=== PATIENT | male | born 1940 | race Caucasian/White ===

== ENCOUNTER 2020-06-13 14:19 | Emergency (ER) | payer OTHER, SELFPAY ==
[2020-06-13 14:26] VITALS: BP 166/62; PULSE 57; RESP 16; TEMP 36.6; O2SAT 99; BMI 27.8
--- NOTE | 2020-06-13 16:10 | ED.WOUNDLAC ---
HPI - Wound/Laceration General Chief Complaint: Wound/Laceration Stated Complaint: finger lac from log splitter Time Seen by Provider: 06/13/20 16:10 History of Present Illness HPI narrative: Patient cut left middle finger on log splitter, and cut off the tip of the finger There is no other injury there is no dizziness no fainting no chest pain, no numbness or weakness Related Data Previous Rx's Medication Instructions Recorded cephalexin [Keflex] 500 mg PO QID 7 Days #28 cap 06/13/20 Allergies Allergy/AdvReac Type Severity Reaction Status Date / Time No Known Allergies Allergy Verified 06/13/20 16:12 Review of Systems Review of Systems: No numbness no weakness no dizziness, no other injury, no fainting, no chest pain no palpitations no shortness of breath [facility] Past Medical History Attestation statement: The following information was validated with the patient. [facility] Narrative: Medical is history is hypertension, no alcohol no drugs Source: nursing notes reviewed Medical History (Updated 06/13/20 @ 18:55 by BERNADETTE Boyce) Hypertension Social History Social History Smoked in Last 30 Days: No Use of substances other than those prescribed or required for medical reasons: No Advance Directives: No Advance Directives Information Provided: No Physical Exam Vital Signs: Vital Signs: Last Vital Signs Temp 98 F 06/13/20 14:26 Pulse 57 06/13/20 18:04 Resp 20 06/13/20 18:04 BP 195/68 H 06/13/20 18:04 Pulse Ox 99 06/13/20 14:26 Body Mass Index 27.8 Patient is A&O x3, no acute distress Normocephalic atraumatic Neck is supple Respiratory no respiratory distress The left middle finger has the distal mid nail finger tip is gone with bone exposed with some bleeding, the fingers otherwise intact and tendon function is intact at both IP, sensation and motor are intact as is vascular Neuro no focal deficit Course Course Course Narrative: The finger was numbed with a digital block, the bandage was removed and there was still some bleeding of the left middle finger with a distal phalanx which is basically the distal part right through the middle of the nail not affecting D IP or IP joints, this was irrigated copiously and then a Surgicel dressing was applied and the patient was observed for half an hour and bleeding was controlled I contacted our local orthopedics and they could not follow this case which probably needs rongeur of the bone and closure by hand specialist I gave the patient the number of the hand center and if he is unable to got follow-up through them or through his primary care doctor he can return here during business hours and we can make some calls and find a place Review of the left middle finger x-ray shows distal phalanx tuft avulsion Discharge Plan Discharge Clinical Impression: Amputation of tip of finger Qualifiers: Encounter type: initial encounter Qualified Code(s): S68.119A - Complete traumatic metacarpophalangeal amputation of unspecified finger, initial encounter Patient Disposition: Home, Self-Care Additional Instructions: We could not refer you to a hand doctor as we do not have 1 here so I will give you some numbers for you to call tomorrow morning It is very important to follow with a hand doctor in 1-2 days as the bone is exposed and will need a special procedure to cover up the bone and protected from infection You can try the Hand Center in [place] phone number [phone], or get a referral from your doctor for a hand specialist Return any time for spreading redness, worse pain and swelling, any sign of infection or any concerns Take antibiotic as prescribed, you got a tetanus shot here Prescriptions: New cephalexin [Keflex] 500 mg capsule 500 mg PO QID 7 Days Qty: 28 RF: 0 Interventions: ED Discharge Assessment Last Done: 06/13/20 19:01 Discharge Date/Time: 06/13/20 19:01
--- NOTE | 2020-06-13 17:27 | XR_ITS ---
EXAMINATION: Left middle finger CLINICAL INFORMATION: Injury to digits COMPARISON: None TECHNIQUE: 3 views of the left middle finger. FINDINGS: There is partial amputation of the tip of the middle digit involving soft tissue and small portion of the distal tuft of the distal phalanges. XR/XR finger LT min 2V IMPRESSION: Amputation of a small portion of the distal tuft of distal phalanx of middle digit along with soft tissues at the distal middle finger.
[2020-06-13 18:04] VITALS: BP 195/68; PULSE 57; RESP 20
[2020-06-13] MEDS: Acetaminophen 325 MG TABLET 650 MG PO (18:17)
== END 2020-06-13 19:01 | disposition home or self-care (01) ==
PROVIDERS: Emergency Provider Emergency Medicine; PCP Internal Medicine
DX: S68.119A Complete traumatic metacarpophalangeal amputation of unspecified finger, initial encounter (principal); S60.413A Abrasion of left middle finger, initial encounter; M79.642 Pain in left hand; Y28.8XXA Contact with other sharp object, undetermined intent, initial encounter; Y93.9 Activity, unspecified; Y92.007 Garden or yard of unspecified non-institutional (private) residence as the place of occurrence of the external cause; Y99.9 Unspecified external cause status; Z23 Encounter for immunization
CPT/HCPCS: 73140; 90471; 90715; 99284

== ENCOUNTER 2020-06-16 09:16 | Emergency (ER) | payer OTHER, SELFPAY ==
[2020-06-16 10:13] VITALS: BP 186/72; PULSE 55; RESP 16; TEMP 36.7; O2SAT 98; BMI 28.1
[2020-06-16] MEDS: Lidocaine HCl 1 % MPF 5 ML VIAL SUBCUT ×2 (11:40)
--- NOTE | 2020-06-16 11:43 | ED.WOUNDLAC ---
HPI - Wound/Laceration General Chief Complaint: Wound/Laceration Stated Complaint: FINGER LACERATION Time Seen by Provider: 06/16/20 10:26 History of Present Illness HPI narrative: Patient is here for recheck of left middle finger tip amputation, he was seen here on Thursday 2 days ago after chopping off the tip of the finger with a log splitter He was not able to get a hand doctor for follow-up despite going to his primary care for referral and calling several numbers of local hand surgeons He is also complaining that when the dressing was changed at the office yesterday it started lightly bleeding Related Data Previous Rx's Medication Instructions Recorded cephalexin [Keflex] 500 mg PO QID 7 Days #28 cap 06/13/20 Allergies Allergy/AdvReac Type Severity Reaction Status Date / Time No Known Allergies Allergy Verified 06/13/20 16:12 Review of Systems Review of Systems: There is no fever no chills no dizziness no weakness there is no numbness or paresthesia, there is no rash, no joint pain [facility] Past Medical History Attestation statement: The following information was validated with the patient. [facility] Narrative: Medical history is hypertension and the patient does take medications and has been compliant but is blood pressure was noted to be elevated so he is advised to follow with primary physician for re-evaluation of that Medical History (Updated 06/16/20 @ 11:28 by BERNADETTE Boyce) HTN (hypertension) Hypertension Social History Social History Advance Directives: No Advance Directives Information Provided: Yes Physical Exam Vital Signs: Vital Signs: Last Vital Signs Temp 98.1 F 06/16/20 10:13 Pulse 55 06/16/20 10:13 Resp 16 06/16/20 10:13 BP 186/72 H 06/16/20 10:13 Pulse Ox 98 06/16/20 10:13 Body Mass Index 28.1 Patient is A&O x3 comfortable relaxed and cooperative Neck is supple Respiratory no distress The left middle finger is unwrapped the bandage had some blood staining it but it was not heavily bleeding, the skin is not red or warm or swollen there is no pus or discharge from the wound there is no lymphangitis no evidence of skin infection Course Course Course Narrative: Patient with left middle finger tip laceration/amputation with bone exposed had dressing removed, new dressing and Surgicel were applied with control of bleeding I called [facility] and a Dr. Connell called me back and is willing to follow the case, he is the hand surgeon at [facility] and follow-up is confirmed for the patient who has no sign of infection or any emergent condition at this moment Discharge Plan Discharge Clinical Impression: Amputation of finger tip Qualifiers: Encounter type: sequela Qualified Code(s): S68.119S - Complete traumatic metacarpophalangeal amputation of unspecified finger, sequela Patient Disposition: Home, Self-Care Additional Instructions: I spoke to Hand surgeon Dr. Connell and he advised remove dressing and wash finger gently once a day He said they can see you in his office on Thursday or Thursday the office phone number is [phone] He said they should call you Thursday morning, if they do not call you you can call them and mention that this was discussed with Dr. Connell Your being seen for a finger tip amputation with exposed bone Bring the disc of the x-ray with you for your appointment Your blood pressure was elevated in the ER so follow with primary doctor for further evaluation Prescriptions: No Action cephalexin [Keflex] 500 mg capsule 500 mg PO QID 7 Days Qty: 28 RF: 0
--- NOTE | 2020-06-16 12:18 | PC.NURSE ---
DIGITAL BLOCK P ERFORMED, PT REPORTS NO PAIN DURING DSD CHANGE AND UPON DC
== END 2020-06-16 12:05 | disposition home or self-care (01) ==
PROVIDERS: Emergency Provider Emergency Medicine; PCP Internal Medicine
DX: S68.119A Complete traumatic metacarpophalangeal amputation of unspecified finger, initial encounter (principal); M79.644 Pain in right finger(s); X58.XXXA Exposure to other specified factors, initial encounter; Y93.9 Activity, unspecified; Y92.9 Unspecified place or not applicable; Y99.9 Unspecified external cause status; Z79.899 Other long term (current) drug therapy
CPT/HCPCS: 99284

== ENCOUNTER 2023-07-09 09:09 | Outpatient (AMB) | payer OTHER, SELFPAY ==
--- NOTE | 2023-07-09 11:56 | AM.OFFWIN_ITS ---
Intake Vital Signs 07/09/23 11:58 Height 5 ft 11 in Weight 207 lb BMI 28.9 BP 140/80 H Blood Pressure Location Lt brachial Position Sitting Pulse 60 Pulse Source Pulse Oximeter Temp 97.7 F Temp Source Temporal Artery Scan Pulse Oximetry (%) 99 Oxygen Delivery Method Room Air Intake Visit Reasons: EP, right hand swelling Intake Note: pt is here today for rt hand swelling started Thursday Patient Tobacco Use Status: Never used Tobacco Allergies No Known Allergies Allergy (Verified 07/09/23 12:03) Do you need a note to return to daycare/school/sports/work: No HPI EP, right hand swelling HPI Details This is an 82-year-old male patient who presents today with a 2 day history of swelling of his right hand. Over the last couple of weeks, he noticed a small round/reddened bump on the dorsal aspect of his right hand. This has grown slightly, and yesterday he noticed his hand surrounding this bump was swollen. He denies any tenderness. He denies any other symptoms today. Denies any fever/chills. [facility] Medical History HTN (hypertension) Hypertension Social History Patient Tobacco Use Status: Never used Tobacco Review of Systems Const All systems reviewed & are unremarkable except as noted in HPI and below Physical Exam Vital Signs: Last Vital Signs Temp 97.7 F 07/09/23 11:58 Pulse 60 07/09/23 11:58 BP 140/80 H 07/09/23 11:58 Pulse Ox 99 07/09/23 11:58 Oxygen Delivery Method Room Air 07/09/23 11:58 BMI result Body Mass Index 28.9 Const General: cooperative, healthy appearing, comfortable and no acute distress Neck Neck: Yes no lymphadenopathy Resp Effort & Inspection: normal respiratory effort Skin General skin exam: no rashes or lesions noted Extrem Other: ? small 1/2 cm round cyst dorsal aspect of right hand between thumb and first digit. Surrounding soft tissue is erythematous and slightly swollen. No tenderness to palpation. No excessive warmth. Right upper extremity: Extremity exam: right hand Details: abnormal to inspection, normal capillary refill, neuromotor exam normal and neurosensory exam normal Office Procedures I&D Drain [id number] Drain Abscess on Finger, simple All charges added?: Procedure code (CPT) selection complete Assessment & Plan Assessment & Plan (1) Cellulitis of right hand: Code(s): L03.113 - Cellulitis of right upper limb Plan: Patient has a small abscess vs. cyst on dorsal aspect right hand. I attempted simple needle puncture I&D of this however no drainage was able to be removed from this. I suspect he has a developing cellulitis and will start him on a course of cephalexin for this. We discussed that if this does not improve, or if he develops any worsening swelling, pain, or warmth of his hand, he should return to the clinic for further evaluation. He verbalizes understanding and agrees to plan. Medications: New cephalexin 500 mg PO TID 5 days 15 tabs 0RF L03.113 - Cellulitis of right upper limb Coding Level of Care Code Est Pt Level 3 (01100) Diagnoses Cellulitis of right hand L03.113 CPT Codes I&D Drain - DRAIN 8: [id number] Drain Abscess on Finger, simple ([id number])
[2023-07-09 11:58] VITALS: BP 140/80; PULSE 60; TEMP 36.5; O2SAT 99; BMI 28.9
== END 2023-07-09 12:48 | disposition home or self-care (01) ==
PROVIDERS: PCP Internal Medicine; Visit Provider Nurse Practitioner Family
DX: L03.113 Cellulitis of right upper limb (principal)
CPT/HCPCS: 10160; 26010; 99213

== ENCOUNTER 2025-04-23 12:11 | Inpatient (IN) | payer OTHER, SELFPAY ==
--- OUTSIDE RECORDS SUMMARY | 2024-02-11 06:30 | XMS_ITS ---
Author Organization [facility] Address [address] [facility] [address] Care Team Providers Care Farm Equipment Operator Name Role Phone Shree Aguiar Primary Care Provider Unav Giana Tao Unavailable [phone] Corey Brown Unavailable [phone] Rs Medications Medication [...] other tobacco user? No Vital Signs Height 6kw96bw in 02/11/2024 Weight 205 lbs 02/11/2024 BMI 28.59 kg/m2 02/11/2024 Encounters Encounter Location Date Provider Diagnosis [facility] [address] [place] [address] 02/11/2024 Corey Brown Plan Of Treatment No Information Progress Notes * Damien ADHIKARI SDOB:1940 (84 yo M)Acc No.[id number]:02/11/2024 Progress Notes Patient: Damien MERAZ Provider: Estefania Brown DPM :1940 A ge:83 Y S ex:Male Date:02/11/2024 Address:[address] [place] [address], [facility], [facility] Pcp:BERNADETTE Peacock Subjective: * Chief Complaints: * [...] enies. C ardiovascular: Pacemaker d enies. M PAN DEVULCANIZER HELPER d enies. W PW d enies. C [...] a day Objective: * Vitals: H t: 1wj32gy, Wt: 205, BMI: 28.59, Shoe size: 10.5, Ht-cm: 180.34 cm, Wt-k.99 kg. Assessment: Plan: * Treatment: * Images: * The named appointment provid er may or may not be the originator of this progress note, and it is not deemed complete until electronically signed by the appointment provider. Sign off status: Pending * Provider: Estefania Brown DPM Date: 02/11/2024 Generated for Anika jefferson/Nirmal/Becky on: 04/23/2025 01:50 PM EDT
--- OUTSIDE RECORDS SUMMARY | 2025-02-06 07:15 | XMS_ITS ---
Author Organization [facility] Address [address] [facility] [place] [address] Care Team Providers Care Manager Cardiac Cath Name Role Phone Shree Aguiar Primary Care Provider Unav ailable Giana Christina Unavailable [phone] Encounters Encounter Location Date Provider Diagnosis [facility] [address] [facility] [place] [address] 02/06/2025 Giana Christina Plan Of Treatment No Information Progress Notes * Damien ADHIKARI SDOB:1940 (84 yo M)Acc No.[id number]:02/06/2025 Progress Note Patient: Damien MERAZ Provider: Juanita Christina DPM :1940 A ge:84 Y S ex:Male Date:02/06/2025 Address:[address] [place] [address], [facility] [place] [facility] Pcp:BERNADETTE Peacock Subjective: * Chief Complaints: * [...] 0 02/06/2025 Generated for Printi ng/Faxing/eTransmitting on: 04/23/2025 01:50 PM EDT
--- OUTSIDE RECORDS SUMMARY | 2025-04-19 09:30 | XMS_ITS | Encounter Summary ---
Author Organization [facility] [place] [address] Care Team Providers Care Step Down Specialist Name Role Phone Shree Urbina Primary Care Provider [phone] Reason for Visit * Consultation (Routine) - Authorized Specialty Diagnoses / Procedures Referred By Jonnathan condon Referred To Contact Physical Therapy Diagnoses Hip pain, unspecified laterality Bilateral shoulder pain, unspecified chronicity Tendinitis of left rotator cuff Rotator cuff tendonitis, right Primary osteoarthritis of right hip Nathan Arzola PA [address] [place] [address] Phone: tel: fax: Referral ID Status Reason Start Date Expiration Date Visits Requested Visits Authorized [id number] Authorized Consult and Treat 03/22/2025 03/22/2026 9 9 Encounter Details Date Type Department Care Team (Late st Contact Info) Description 04/19/2025 9:30 AM EDT Treatment Outpatient Rehabilitation [address] [phone] Minoo Dukes PTA Hip pain, unspecified laterality (Primary Dx) Social History Tobacco Use Types Packs/Day Years Used Date Smoking Tobacco: Former Cigarettes 1 8.6 0 12/24/1958 - 07/27/1967 Smokeless Tobacco: Never Alcohol Use Standard Drinks/Week Comments Yes 0 (1 standard drink = 0.6 oz pur e alcohol) Housing Instability Answer Date Recorde d Are you worried that in the next 2 months you may not have stable housing? No 10/12/2024 Food Access & Nutrition Answer Date Rec orded Do you have access to a vari ety of food including fruits and vegetables? Yes 10/12/2024 Health Literacy Answer Date Recorded How often do you need to hav e someone help you when you read instructions, pamphlets, or other written material from your doctor or pharmacy? Never 10/12/2024 Caregiver: How often do you need to have someone help you when you read instructions, pamphlets, or other written material from your doctor or pharmacy? Not on file 10/12/2024 Financial Risk Answer Date Recorded How hard is it for you to pa y for the very basics like food, housing, medical care, and air conditioning / heating? Not very hard 10/12/2024 Transportation Answer Date Recorded Has the lack of transportati on kept you from meetings, work, or from getting things needed for daily living? No Has the lack of transportati on kept you from medical appointments or from getting medications? No 10/12/2024 Social Isolation Answer Date Recorded How often do you feel lonely or isolated from th ose around you? Never 10/12/2024 Food Risk Answer Date Recorded Within the past 12 months we worried whether our food would run out before we got money to buy more. Never true 10/12/2024 Within the past 12 months th e food we bought just didn't last and we didn't have money to get more. Never true 10/12/2024 Dependent Care Answer Date Recorded Do you need help finding or paying for care for your loved ones. For example, child psychology teacher or elderly care for an older adult? No 10/12/2024 Education Answer Date Recorded Do you think completing more education or training, like finishing a GED, going to college, or learning a trade, would be helpful for you? No 10/12/2024 Employment and Income Answer Date Recor ded During the last four weeks, have you been actively looking for work? No 10/12/2024 Living Situation Answer Date Recorded What is your living situation? Unrecognized valu e 10/12/2024 Sex and Gender Information Value Date Recorded Sex Assigned at Not on file Legal Sex Male 12:38 PM EST Gender Identity Not on file Sexual Orientation Not on file documented as of this encounter Progress Notes * Minoo Dukes, PHOTO FINISHER - 04/19/2025 9:30 AM EDT [facility] - Outpatient PHYSICAL THERAPY DAILY TREATMENT NOTE - OP Date: 04/19/2025 Visit Number: 2 Patient Name: Damien Tapia : 1940 Age: 84 y.o. Gender: male Diagnosis: ICD-10-CM ICD-9-CM 1. Hip pain, unspecified laterality M25.559 719.45 Date of Onset/Surgery: 03/22/2025 Referring Provider: Nathan Arzola PA Insurance: Payor: [employer] / Plan: [employer] PLAN / Product Type: *No Product type* / Patient Identified by: Minoo Dukes PTA Language: Belarusian Medications: Current Outpatient Medications on File Prior to Visit Medication Sig Dispense Refill acetaminophen (TYLENOL) 500 mg tablet Take 2 tablets (1,000 mg total) by mouth every 6 (six) hours if needed for mild pain. alfuzosin (UROXATRAL) 10 mg 24 hr tablet Take 1 tablet (10 mg total) by mouth 1 (one) time each day. 90 tablet 1 amLODIPine (NORVASC) 10 mg tablet Take 1 tablet (10 mg total) by mouth 1 (one) time each day. 90 tablet 2 atorvastatin (LIPITOR) 20 mg tablet TAKE 1 TABLET BY MOUTH ONCE A DAY 90 tablet 2 CHOLECALCIFEROL, VITAMIN D3, ORAL Take by mouth. cyanocobalamin (VITAMIN B-12) 100 mcg tablet Take 1 tablet (100 mcg total) by mouth 1 (one) time each day. ibuprofen (ADVIL,MOTRIN) 600 mg tablet Take 1 tablet (600 mg total) by mouth every 6 (six) hours ifneeded for mild pain. 120 tablet 2 losartan (COZAAR) 100 mg tablet Take 1 tablet (100 mg total) by mouth 1 (one) time each day. 90 tablet 2 triamcinolone (KENALOG) 0.1 % ointment Apply topically 2 (two) times a day if needed for irritationor rash. 30 g 3 Current Facility-Administered Medications on File Prior to Visit Medication Dose Route Frequency Provider Last Rate Last Admin triamcinolone acetonide (KENALOG-40) 40 mg/mL injection 40 mg 40 mg intra- articular Once BERNADETTE Peacock Allergies: has No Known Allergies. Precautions: Fall risk: No Patient/Caregiver Goals: SUBJECTIVE Subjective Report: I am more sore at night Chart Reviewed: Yes Pain R hip discomfort OBJECTIVE TREATMENT INTERVENTION: Modalities: None performed Procedures: Nustep x5min Seated HS stretch 30 sec x3 HEP Supine LTR x10 HEP Supine hip flexor stretch off table 30 sec x3 HEP Manual.. PROM to R hip, LAD to R hip ASSESSMENT/Response to Treatment Good Pt given HEP with handout provided Patient Education: Education provided: Yes Education Provided To: Patient utilizing Explanation and Demonstration mode(s) of education Response to Education: Applied Knowledge and Verbal Understanding PLAN POC Development/Review: No Change in the Plan of Care; Participants: Patient Total Treatment Time: 30 Modalities: Therapeutic procedures: Documentation completed by Minoo Dukes PTA documented in this encounter Plan of Treatment Upcoming Encounters Date Type Department Care Team (Late st Contact Info) Description 04/26/2025 9:15 AM EDT Treatment Outpatient [address] [phone] Minoo Dukes PTA 04/28/2025 10:30 AM EDT Treatment Outpatient [address] [phone] Chung Ontiveros, PT [address] [place] [address] 05/01/2025 9:30 AM EDT Treatment Outpatient [address] [phone] Minoo Dukes PTA 05/05/2025 9:30 AM EDT Treatment Outpatient [address] [phone] Chung Ontiveros, PT [address] [place] [address] 05/08/2025 10:00 AM EDT Treatment Outpatient [address] [phone] Minoo Dukes PTA 05/16/2025 10:30 AM EDT Treatment Outpatient Rehabilitation [facility] [address] [place] [address] Chung Ontiveros, PT [address] [place] [address] 05/26/2025 11:00 AM EDT Office Visit Adult Medicine [facility] [address] [place], [place] [phone] Louise Trivedi PA [address] [place], [place] documented as of this encounter Goals Goal Patient Goal Type Associated Problems Recent Progress Patient-Stated? Author not have pain General Yes Chung Ontiveros, PT PT STG 8 visits from [facility] on 04/14/25 General No Chung Ontiveros, PT Note: [x] = goal MET [] = goal NOT MET [] Pt will report a pain decrease to 2/10, [] Pt will be improve hip abd strength to 4+/5, [] Pt will improve hip add strength to 4+/5, [] Pt will not require UE support to transfer LE into and out of bed, [] Pt will wake <1night due to hip pain PT LTG x 15 visits from [facility] 04/14/25 General No Chung Ontiveros, PT Note: [x] = goal MET [] = goal NOT MET [] Pt will have no difficulty with dressing LE [] Pt will wake 1 x/wk at most due to hip Sx documented as of this encounter Visit Diagnoses Diagnosis Hip pain, unspecified laterality- Primary documented in this encounter Additional Health Concerns Assessment Noted Time PHQ-9 Depression Total Score: 0 10/13/19 8:18 AM EDT A fall risk assessment has been complete d for the patient 10/12/2024 8:19 AM EDT documented as of this encounter Care Teams Step Down Specialist Relationship Specialty Start Date End Date Shree Urbina PA [address] [place] [address] PCP - General Internal Medicine 10/11/24 documented as of this encounter
--- OUTSIDE RECORDS SUMMARY | 2025-04-20 11:30 | XMS_ITS | Encounter Summary ---
Author Organization [facility] Address [address] [place] [address] Care Team Providers Care Stapler Hand Name Role Phone Shree Urbina Primary Care Provider [phone] Reason for Visit * Reason Comments Pain * Consultation (Routine) - Authorized Specialty Diagnoses / Procedures Referred By Jonnathan condon Referred To Contact Sports Medicine / Orthopaedic Surgery Diagnoses Primary osteoarthritis of right hip Nathan Arzola PA [address] [place] [address] Phone: tel: fax: Faye Solo MD [address] [address] Phone: tel:[phone] fax:[phone] Referral ID Status Reason Start Date Expiration Date Visits Requested Visits Authorized [id number] Authorized Specialty Services Required 03/23/2025 03/22/2026 12 12 Encounter Details Date Type Department Care Team ([facility] st Contact Info) Description 04/20/2025 11:30 AM EDT Consult Orthopedic Surgery - [place] [address] [phone] Faye Solo MD [address] [address] Primary osteoarthritis of right hip Social History Tobacco Use Types Packs/Day Years [...] care for your loved ones. For example, salesperson children's shoes or elderly care for an older adult? [...] as of this encounter Progress Notes * Faye Solo MD - 04/20/2025 11:30 AM EDT Tylenol 500mg take 2 tabs at 8pm Ibuprofen 600mg take 1 at bedtime documented in this encounter Plan of Treatment Upcoming Encounters Date Type Department Care Team (Late st Contact Info) Description 04/26/2025 9:15 AM EDT Treatment Outpatient [address] [phone] Minoo Dukes, OUTSIDE SALES EXECUTIVE 04/28/2025 10:30 AM EDT Treatment Outpatient [address] [phone] Chung Ontiveros, PT 175 [place] [address] 05/01/2025 9:30 AM EDT Treatment Outpatient [address] [phone] Minoo Dukes, OUTSIDE SALES EXECUTIVE 05/05/2025 9:30 AM EDT Treatment Outpatient [address] [phone] Chung Ontiveros, PT [address] [place] [address] 05/08/2025 10:00 AM EDT Treatment Outpatient [address] [phone] Minoo Dukes, OUTSIDE SALES EXECUTIVE 05/16/2025 10:30 AM EDT Treatment Outpatient [address] [phone] Chung Ontiveros, PT [address] [place] [address] 05/26/2025 11:00 AM EDT Office Visit Adult Medicine [facility] [address] [place], [place] [phone] Louise Trivedi PA [address] [place], [place] documented as of this encounter Goals Goal Patient Goal Type Associated Problems Recent Progress Patient-Stated? Author not have pain General Yes Chung Ontiveros, PT PT STG 8 visits from [facility] on 04/14/25 General [...] pain PT LTG x 15 visits from [facility] 04/14/25 General No Chung Ontiveros, PT Note: [x] = goal MET [] = goal NOT MET [] Pt will have no difficulty with dressing LE [] Pt will wake 1 x/wk at most due to hip Sx documented as of this encounter Visit Diagnoses Diagnosis Primary osteoarthritis of right hip documented in this encounter Orders Outpatient Referral Count Last Ordered Date Fir st Ordered Date AMB REFERRAL TO [facility] 1 documented in this encounter Additional Health Concerns Assessment Noted Time PHQ-9 Depression Total Score: 0 10/13/19 8:18 AM EDT A fall risk assessment has been complete d for the patient 10/12/2024 8:19 AM EDT documented as of this encounter Care Teams Stapler Hand Relationship Specialty Start Date End Date Shree Urbina PA [address] [place], [place] PCP - General Internal Medicine 10/11/24 documented as of this encounter
--- OUTSIDE RECORDS SUMMARY | 2025-04-21 13:30 | XMS_ITS | Encounter Summary ---
Author Organization [facility] [place] [address] Care Team Providers Care Semiconductor Assembler Name Role Phone Shree Urbina Primary Care Provider [phone] Reason for Visit * Consultation (Routine) - Authorized Specialty Diagnoses / Procedures Referred By Jonnathan condon Referred To Contact Physical Therapy Diagnoses Hip pain, unspecified laterality Bilateral shoulder pain, unspecified chronicity Tendinitis of left rotator cuff Rotator cuff tendonitis, right Primary osteoarthritis of right hip Nathan Arzola PA [address] [place] [address] Phone: tel: fax: Referral ID Status Reason Start Date Expiration Date Visits Requested Visits Authorized [id number] Authorized Consult and Treat 03/22/2025 03/22/2026 9 9 Encounter Details Date Type Department Care Team (Late st Contact Info) Description 04/21/2025 1:30 PM EDT Treatment Outpatient Rehabilitation [address] [phone] Minoo Dukes PTA Hip pain, unspecified laterality [...] care for your loved ones. For example, director of early childhood education or elderly care for an older adult? [...] this encounter Progress Notes * Minoo Dukes, MAINTAINER CENTRAL OFFICE - 04/21/2025 1:30 PM EDT [facility] - Outpatient PHYSICAL THERAPY DAILY TREATMENT NOTE - OP Date: 04/21/2025 Visit Number: 3 Patient Name: Damien Tapia : 1940 Age: 84 y.o. Gender: male Diagnosis: ICD-10-CM ICD-9-CM 1. Hip pain, unspecified laterality M25.559 719.45 Date of Onset/Surgery: 03/22/2025 Referring Provider: Nathan Arzola PA Insurance: Payor: [employer] / Plan: [employer] PLAN / Product Type: *No Product type* / Patient Identified by: Minoo Dukes PTA Language: Kuwaiti Medications: Current Outpatient Medications on File Prior [...] risk: No Patient/Caregiver Goals: SUBJECTIVE Subjective Report: The hip is doing good, the back is a bit sore Chart Reviewed: Yes Pain R hip discomfort OBJECTIVE TREATMENT INTERVENTION: Modalities: None performed Procedures: Nustep x5min Shuttle JAIME 5 cords 3x10, SL 3 cords 2x10 Lateral walk GTB at knees 2 laps at counter Seated hip IR with foam roll squeeze 3x10 HL clams GTB 3x10 Bridges 2x10 Manual.. PROM to R hip, LAD to R hip HEP.. HS stretch, LTR, hip flexor stretch ASSESSMENT/Response to Treatment Good Good compliance with HEP, hip pain decreased today Patient Education: Education provided: Yes Education Provided [...] Description 04/26/2025 9:15 AM EDT Treatment Outpatient [address] [phone] Minoo Dukes PTA 04/28/2025 10:30 AM EDT Treatment Outpatient [address] [phone] Chung Ontiveros, PT [address] [place] [address] 05/01/2025 9:30 AM EDT Treatment Outpatient [address] [phone] Minoo Dukes PTA 05/05/2025 9:30 AM EDT Treatment Outpatient [address] [phone] Chung Ontiveros, PT [address] [place] [address] 05/08/2025 10:00 AM EDT Treatment Outpatient Rehabilitation - [address] [phone] Minoo Dukes PTA 05/16/2025 10:30 AM EDT Treatment Outpatient [address] [phone] Chung Ontiveros, PT [address] [place] [address] 05/26/2025 11:00 AM EDT Office Visit Adult Medicine [address] [phone] Louise Trivedi PA [address] [place], [place] documented as of this encounter Goals Goal Patient Goal Type Associated Problems Recent Progress Patient-Stated? Author not have pain General Yes Chung Ontiveros, PT PT STG 8 visits from [facility] on 04/14/25 General No Chung [...] pain PT LTG x 15 visits from [facility] 04/14/25 General No Chung Ontiveros, [...] Time PHQ-9 Depression Total Score: 0 10/13/19 25 8:18 AM EDT A fall risk assessment has been complete d for the patient 10/12/2024 8:19 AM EDT documented as of this encounter Care Teams Semiconductor Assembler Relationship Specialty Start Date End Date Shree Urbina PA [address] [place] [address] PCP - General Internal Medicine 10/11/24 documented as of this encounter
[2025-04-23] VITALS (12 sets, daily range): BP systolic 121–151; BP diastolic 32–88; PULSE 71–92; RESP 12–22; TEMP 36.3–37; O2SAT 95–99; BMI 30.7
--- NOTE | ~2025-04-23 | CT_ITS ---
CLINICAL HISTORY: unsteady gait blurry vision x 3 weeks, r o infarct CT head without contrast Comparison: None provided Findings: There is age-appropriate atrophy. The size and shape of the ventricular system is within normal limits for this degree of atrophy. Mild areas of low-attenuation are seen within the deep white matter, not unexpected for a patient of this age. Hernández-white differentiation is well preserved. No midline shift or mass effect. No intracranial hemorrhage. No calvarial fractures. IMPRESSION: 1. No acute intracranial findings. Specifically, no hemorrhage or acute territorial infarct This document has been electronically signed by: Franc Gordon MD on 04/23/2025 14:37:58
--- NOTE | ~2025-04-23 | XR_ITS ---
CLINICAL HISTORY: dizziness Exam: PA and lateral views of the chest. Comparison: None provided. Findings: Lungs are well inflated. Mediastinal contours, cardiac silhouette, and pulmonary vasculature are within normal limits. No focal areas of consolidation. No pleural effusion. Partial visualization of a suture anchor in the right humeral head. Impression: No acute findings. This document has been electronically signed by: Franc Gorodn MD on 04/23/2025 14:35:30
--- NOTE | 2025-04-23 12:21 | ED_ITS ---
HPI - Dizziness General Chief Complaint: Dizziness Stated Complaint: dizziness, fell and hit head Time Seen by Provider: 04/23/25 13:03 Source: patient Mode of arrival: ambulatory Limitations: no limitations History of Present Illness ED Provider: HPI Narrative: 84-year-old male, with a history of right hip pain has been using Advil and ibuprofen almost daily basis, melena for about a week, reporting weakness and dizziness, had a fall going down the steps with a head strike he is not on blood thinners, no LOC, and he has had some blurry vision and generalized weakness as well no fevers or chills no chest pain reported no shortness of breath, no history of hematemesis and has had no history of prior GI bleeds. Related Data Previous Rx's ?Medication ?Instructions ?Recorded cephalexin 500 mg tablet 500 mg PO TID 5 days #15 tab s 07/09/23 Allergies Allergy/AdvReac Type Severity Reaction Status Date / Time No Known Allergies Allergy Verified 04/23/25 12:24 Review of Systems 2 Constitutional: Constitutional: Reports as per [facility] Past Medical History Medical History HTN (hypertension) Hypertension Social History Social History Alcohol intake: current Alcohol intake frequency: does not drink Patient Tobacco Use Status: Never used Tobacco Smoked in Last 30 Days: No Use of substances other than those prescribed or required for medical reasons: No Advance Directives: No Advance Directives Information Provided: No Do you have a plan to hurt others: No Plan Physical Exam 2 Vital Signs: Vital Signs: Last Vital Signs Temp 97.9 F 04/23/25 12:20 Pulse 84 04/23/25 12:56 Resp 12 04/23/25 12:37 BP 123/42 L 04/23/25 12:56 Pulse Ox 99 04/23/25 12:37 O2 Del Method Room Air 04/23/25 12:37 BMI result Body Mass Index 30.7 Const: Other: * Gen: ?Overall well-appearing patient * HEENT: Pale some conjunctiva * Neck: Supple, no LAD * CV: RRR, no obvious murmurs appreciated * Resp: ?No wheezing rales rhonchi no stridor moving air well * Abd: ?Bowel sounds are present, no tenderness no rebound no rigidity * Rectal: Saúl melena * MSK: FROM, strength 5/5 all extremities * Skin: Warm, dry, intact, * Neuro: ?Alert and oriented x3, moving upper and lower extremities symmetrically, no obvious facial asymmetry noted Course Course Course Narrative: Mara Richards PARTNER MARKETING INTERN 04/23 1220 84-year-old male with a history of diabetes, hypertension, hyperlipidemia, congestive heart failure presents the ER with complaints of dizziness and unsteady gait with blurry vision intermittently for the last few weeks. Had a fall today with head strike. No loss of consciousness. Will need labs, EKG, CT head VSS Medications Administered Discontinued Medications Generic Name Dose Route Start Last Admin Trade Name Freq PRN Reason Stop Dose Admin Pantoprazole Sodium 80 mg 04/23/25 13:30 04/23/25 13:52 Pantoprazole Sodium 40 Mg/10 Ml Vial IVPUSH 04/23/25 13:31 80 mg ONCE ONE Administration Medical Decision Making Medical Decision Making [facility] Narrative: 1:39 PM 04/23/2025 (Dr. Hima Kat): Hemodynamically stable patient presenting with weakness, pale conjunctiva, on NSAIDs daily basis for right away, has been weak and fell, we will obtain imaging has he reported a head strike, no LOC no neurologic deficits, rectal exam was guaiac positive stool, I sent a text to Dr. Morales to make sure he is aware of the case and to follow up with the patient, we will give Protonix, patient is not a drinker to suspect variceal bleed, he is not on blood thinners necessitating reversal, ECG we will be checked to make sure there was no evidence for end-organ damage relating to anemia Written consent for blood transfusion obtained. Hemoglobin/Hct 6.1/17.8, we will transfuse 2 units 3:01 PM 04/23/2025 (Dr. Hima Kat): Dr. Morales is aware Differential Diagnosis Differential Diagnoses: The differential diagnosis associated with the presentation includes (Upper GI bleed, lower GI bleed, ACS, dysrhythmia, head injury) Admission/Observation Consideration of admission/observation: Escalation of care including admission/observation considered Consult Healthcare Provider Management of the patient was discussed with: Hospitalist Lab Data MDM Lab Attestation statement: I reviewed the patient's lab results. 04/23/25 12:46 04/23/25 12:46 Labs: Lab Results 04/23/25 04/23/25 04/23/25 Range/Units 12:46 14:06 14:08 WBC 10.3 (4.8-10.8) X10*3/uL RBC 1.93 L (4.60-5.80) X10*6/uL Hgb 6.1 L* (14.0-18.0) g/dl Hct 17.8 L* (42.0-52.0) % MCV 92.2 (80.0-98.0) fL MCH 31.6 (27.0-33.0) pg MCHC 34.3 (31.0-36.0) g/dl RDW 14.3 (11.0-16.0) % Plt Count 183 (160-400) X10*3/uL MPV 10.3 (9.4-12.4) fL Immature Gran % (Auto) 1.4 H (0.0-0.4) % Neut % (Auto) 77.4 H (45-73) % Lymph % (Auto) 11.9 L (20-40) % Teller % (Auto) 9.0 (2-11) % Eos % (Auto) 0.1 (0-4) % Baso % (Auto) 0.2 (0-2) % Lymph # (Auto) 1.2 (1.2-4.9) X10*3/uL Teller # (Auto) 0.9 (0.1-1.2) X10*3/uL Eos # (Auto) 0.0 (0.0-0.4) X10*3/uL Baso # (Auto) 0.0 (0.0-0.2) X10*3/uL Abs Immat Gran (auto) 0.14 H (0.00-0.03) X10*3/uL Absolute Neuts (auto) 7.9 (2.0-8.3) x10*3/uL Absolute Nucleated RBC 0.000 (0.0-0.012) X10*3/uL Nucleated RBC % (auto) 0.0 (0.0-0.2) /100WBC Smear Tech's Comments VERIFIED Sodium 131 L (135-145) mmol/L Potassium 4.2 (3.3-5.1) mmol/L Chloride 99 (96-108) mmol/L Carbon Dioxide 24 (22-29) mmol/L Anion Gap 12 (12-20) BUN 27 H (9-16) mg/dL Creatinine 0.79 (0.5-1.4) mg/dL Estim Creat Clear Calc 81.3 Estimated GFR > 60 Random Glucose 122 H (60-115) mg/dL Calcium 8.5 (8.4-10.2) mg/dL Total Bilirubin 0.3 (0.0-1.0) mg/dL Direct Bilirubin 0.1 (0.0-0.5) mg/dL AST 21 (5-37) U/L ALT 17 (0-40) U/L Alkaline Phosphatase 42 (39-117) U/L Troponin I High Sens 35.0 (<3.5-35.0) ng/L Total Protein 5.1 L (6.5-8.0) g/dL Albumin 3.3 L (3.5-5.0) g/dL Stool Occult Blood POSITIVE (NEGATIVE) Blood Type B Positive Antibody Screen NEGATIVE Crossmatch See Detail Independent Interpretation I performed an independent interpretation of an: EKG (96 beats per minute, no ST-T changes to suspect underlying ischemia) Radiology Impression Discussion of test interpretation with radiology: I have reviewed the radiologist's reading. Radiologist Impression: IMPRESSION: 1. No acute intracranial findings. Specifically, no hemorrhage or acute territorial infarct Critical Care Time Critical Care Time Critical Care Time: Yes Total Critical Care Time: 35 Attestation: Time is exclusive of separately billable procedures. Time includes: direct patient care, patient reassessment, coordination of patient care, interpretation of data (laboratory data, pulse oximetry, arterial blood gases and chest xrays), review of patient's medical records, medical consultation and documentation of patient care. Procedures excluded from critical care time: central intravenous line placement and electrocardiography. Discharge Plan Discharge Clinical Impression: Acute upper GI bleeding Patient Disposition: Admitted As Inpatient Print Language: Slovak
--- NOTE | 2025-04-23 12:25 | ECG_ITS ---
Test Reason : DIZZINESS Blood Pressure : */* mmHG Vent. Rate : 96 BPM Atrial Rate : 86 BPM P-R Int : 168 ms QRS Dur : 128 ms QT Int : 368 ms P-R-T Axes : 32 -14 114 degrees QTcB Int : 464 ms Atrial fibrillation Non-specific intra-ventricular conduction block T wave abnormality, consider lateral ischemia Abnormal ECG No previous ECGs available Referred By: Mara Richards Electronically Signed By: Mirza Girard
--- NOTE | 2025-04-23 12:50 | PC.NURSE ---
Patient is a 84-year-old male with a history of diabetes, hypertension, hyperlipidemia, congestive heart failure presents the ER with complaints of intermittent dizziness for the past month with assoc blurry vision. States over the past 3 days dizziness has been consistent and fell backwards yesterday striking his head. Patient alert and oriented. building appraiser applied and patient noted to be irregular with frequent ectopi and a BBB. Denies CP or SOB. Lungs clear bilat. Respirations even and non-labored. Abdomen soft, distended, non-tender with positive bowel sounds. Positive pedal pulses with no edema. c/o right hip pain and lower back pain secondary to arthritis.
[2025-04-23 12:59] LABS: Imm Gran Abs Auto 0.14 X10*3/uL (0.00-0.03); Imm Gran Pct Auto 1.4 % (0.0-0.4); Lymphocytes Absolute Auto 1.2 X10*3/uL (1.2-4.9); Mean Corpuscular HGB Conc 34.3 g/dl (31.0-36.0); Mean Corpuscular Hemoglobin 31.6 pg (27.0-33.0); Mean Corpuscular Volume 92.2 fL (80.0-98.0); NRBC Abs Auto 0.000 X10*3/uL (0.0-0.012); NRBC Pct Auto 0.0 /100WBC (0.0-0.2); Platelet Count 183 X10*3/uL (160-400); Red Blood Count 1.93 X10*6/uL (4.60-5.80); White Blood Count 10.3 X10*3/uL (4.8-10.8)
[2025-04-23 13:05] LABS: Hematocrit 17.8 % (42.0-52.0); Hemoglobin 6.1 g/dl (14.0-18.0)
[2025-04-23 13:15] LABS: Alanine Aminotransferase 17 U/L (0-40); Albumin Level 3.3 g/dL (3.5-5.0); Alkaline Phosphatase 42 U/L (39-117); Anion Gap 12 (12-20); Aspartate Amino Transferase 21 U/L (5-37); Blood Urea Nitrogen 27 mg/dL (9-16); Calcium 8.5 mg/dL (8.4-10.2); Carbon Dioxide 24 mmol/L (22-29); Chloride 99 mmol/L (96-108); Creatinine Clr Calc Pharmacy 81.3; Estimated Glomerular Filt Rate > 60; Potassium 4.2 mmol/L (3.3-5.1); Sodium 131 mmol/L (135-145); Total Protein 5.1 g/dL (6.5-8.0)
[2025-04-23 13:17] LABS: MANUAL DIFF FLAG SCAN
[2025-04-23 13:20] LABS: Troponin-I High Sensitivity 35.0 ng/L (<3.5-35.0)
--- OUTSIDE RECORDS SUMMARY | 2025-04-23 13:50 | XMS_ITS | Clinical Summary ---
Author Organization [facility], Address [address] [place] [address] [place] [address] Phone Care Team Providers Care Staff Research Scientist Name Role Phone Rod Ashley Primary Care Provider [phone] Social History Tobacco Use Types Packs/Day Years Used Date Smoking Tobacco: Never Assessed Sex and Gender Information Value Date Recorded Sex Assigned at Not on file Legal Sex Male 12:06 PM EDT Gender Identity Not on file Sexual Orientation Not on file Plan of Treatment Health Maintenance Due Date Last Done Comments Pneumococcal Vaccine: 50+ Ye ars (1 of 1 - PCV) 1990 Influenza Vaccine (#1) 2025 Hepatitis B Vaccine Aged Out No longe r eligible based on patient's age to complete this topic Insurance Family Health Plans Care Teams Staff Research Scientist Relationship Specialty Start Date End Date Rod Ashley [address] [place] [address] PCP - General 02/15/24
--- OUTSIDE RECORDS SUMMARY | 2025-04-23 13:50 | XMS_ITS | Clinical Summary ---
Author Organization [facility] Address [address] [place] [address] Care Team Providers Care Education Analyst Name Role Phone Shree Urbina PA-C Primary Care Provider Allergies No known active allergies Medications Medication Sig Dispensed Refills Start Date End Date Status atorvastatin (LIPITOR) tablet 20 mg Take 1 tablet (20 mg total) by mouth daily. 0 Active losartan (COZAAR) 100 MG tablet Take 1 tablet (100 mg total) by mouth daily. 0 Active amLODIPine (NORVASC) tablet 10 mg Take 1 tablet (10 mg total) by mouth daily. 0 Active Social History Tobacco Use Types Packs/Day Years Used Date Smoking Tobacco: Former Cigarettes 1 Q uit: 1970 Smokeless Tobacco: Never Tobacco Cessation:Counseling Given: Not Answered Alcohol Use Standard Drinks/Week Comments Yes 0 (1 standard drink = 0.6 oz pur e alcohol) On occasion Sex and Gender Information Value Date Recorded Sex Assigned at Not on file Gender Identity Not on file Sexual Orientation Not on file Job Start Date Occupation Industry Not on file Not on file Not on file Last Filed Vital Signs Vital Sign Reading Time Taken Comments Blood Pressure 135/46 01/19/2024 9:30 AM EDT Pulse 68 01/19/2024 9:30 AM EDT Temperature 36.4 C (97.6 F) 01/19/2024 9:30 AM EDT Respiratory Rate - - Oxygen Saturation 99% 01/19/2024 9:30 AM EDT Inhaled Oxygen Concentration - - Weight 88.9 kg (196 lb) 01/19/2024 9:30 AM EDT Height 180.3 cm (5' 11 ) 01/19/2024 9:30 AM EDT Body Mass Index 27.34 01/19/2024 9:30 AM EDT Plan of Treatment Health Maintenance Due Date Last Done Comments Depression Screening 1952 Preventative Health Evaluation 1958 Shingrix-Zoster Vaccine (1 of 2) 1990 Fall Risk Assessment 2005 RSV Adult > 60+ Yrs or (1 - 1-dose 75+ series) 10/20/2015 DTap / Tdap / Td (2 - Td or Tdap) 09/23/2022 09/23/2012 COVID-19 Vaccine ( - season) 2025 12/10/2021, 06/12/2021, 09/26/2020, Additional history exists Influenza Vaccine (#1) 2025 3, 05/26/2022, 05/08/2020, Additional history exists Pneumococcal Vaccine Completed 12/12/2014, 11/08/19 09 Hepatitis B Vaccines Aged Out No long er eligible based on patient's age to complete this topic RSV Ped < 20 months Aged Out No longe r eligible based on patient's age to complete this topic Care Teams Education Analyst Relationship Specialty Start Date End Date Shree Urbina, PA-C PCP - General Medical Services 12/24/23
--- OUTSIDE RECORDS SUMMARY | 2025-04-23 13:50 | XMS_ITS | Data Portability ---
Author Organization MD - [facility], [facility] Address [address] [place] [address] Care Team Providers Care Anesthesiologist Name Role Phone NICOLE LIZ Referring Provider [phone] Assessment Encounter Date Assessment Date Assessment LastModified by Organization Details LastModified Time 03/03/2024 03/03/2024 The mass and inflammation have fortunately resolved. CT of the neck demonstrates this is an odontogenic issue: Abnormal remodeling of the inferior aspect of the anterior mandible and the right greater than left mandibular bodies with possible central sequestrum. 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 Patient denies radiation therapy to the head or neck, and denies use of bisphosphonates. Recommend he follow up with his dentist and his oral surgeon. He is agreeable. Not available 03/03/2024 13:46:36 Plan of Treatment Reminders Order Date Submit Date Provider Last Modified By Organization Details Last Modified Time Details Appointments None recorded. Lab None recorded. Referral None recorded. Procedures None recorded. Surgeries None recorded. Imaging CT, neck, w/ contrast - painful bilateral mandibular mass x 3 months 2023 024 [email or web address] [facility], [address] [place], [address], 15:44:32 Medication Orders None recorded. Patient TargetsNo targets recorded. Patient Instructions Encounter Date Encounter Id Patient Instructions Last Modified By Organization Details Last Modified Time 02/02/2024 [id number] Differential diagnosis was reviewed with patient to include most likely odontogenic source versus less likely malignancy. However recommended patient consult with oral surgeon. We will order CT of the neck with contrast and meet again to discuss results. Patient should continue to work with PCP regarding these symptoms. Today I personally reviewed the results of an ultrasound of the neck dated 01/13/2024. Patient was also examined by Nadia Lau PA-C. Not available 02/02/2024 10:12:04 Reason for Referral None Reported. Results Created Date Observation Date Name Description Value Unit Range Abnormal Flag Note LastModifiedBy Organization Detail LastModifiedTime 02/02/20 24 01/13/1924 US, head + neck, soft tissu e No observ ation record ed. [email or web address] Not Available 2023 15:33:27 02/25/20 24 02/22/2024 CT, neck, soft tissu e, w/ contr ast No observ ation record ed. [email or web address] Not Available 07/2023 15:00:57 03/15/20 24 02/22/2024 CT, neck, soft tissu e, w/ contr ast No observ ation record ed. [email or web address] Not Available 13:45:19 Result Notes None recorded. Problems Name Problem SNOMED Code Status Onset Date Resolution Date Notes Provider Name and Address Organization Details Recorded Time Mass of neck 360801461 Active 2023 Nadia raya [place] - [facility] 4 10:05:51 Referred otalgia of right ear 657352431898390 0 Active 2023 BRADLEY Chaidez [facility] 4 10:12:27 Disorder of jaw 71950447 Active 2023 Nadia raya [place] [facility] 4 13:46:49 Problem Notes None recorded. Medical Equipment None Reported. Medications Name Sig Start Date Stop Date Status Note LastModified by Organization Details LastModified Time atorvastatin 20 mg tablet active Not Available Not Available No t Available atorvastatin 10 mg tablet active Not Available Not Available No t Available spironolactone 25 mg tablet active Not Available Not Available Not Available amlodipine 10 mg tablet active Not Available Not Available No t Available cephalexin 500 mg capsule TAKE 1 CAPSULE BY MOUTH THREE TIMES A DAY FOR 5 DAYS active Not Available Not Available No t Available losartan 100 mg tablet active Not Available Not Available Not Available alfuzosin ER 10 mg tablet,extended release 24 hr active Not Available Not Availabl e Not Available Vitals Date Recorded Body height Body mass index (BMI) Body weight Provider Name and Address Organization Details Last Updated DateTime 02/02/2024 180.34 cm 27.1 kg/m2 33671.72 g Criss Millerues [facility] 02/02/2024 09:24:43 Date Recorded Body height Body mass index (BMI) Body weight Provider Name and Address Organization Details Last Updated DateTime 03/03/2024 180.34 cm 27.1 kg/m2 57630.92 g Roselyn Lau [facility] 03/03/2024 13:04:07 Social History None recorded. Functional Status None recorded. Mental Status None recorded. Family History Nothing Reported. Medical History No medical history recorded. Past Encounters Encounter ID Performer Location Encounter Start Date Encounter Closed Date Diagnosis/Indication Diagnosis SNOMED-CT Code Diagnosis ICD10 Code Diagnosis IMO Codes Diagnosis Note [id number] CELINE GARCIA MD [facility] [address] [address] 02/02/2024 09:17:09 02/02/2024 09:49:15 Mass of neck 935728352 R22.1 Referred o talgia of right ear 8907699500 162206 H92.01 [id number] NADIA LAU PA-C [facility] [address] [address] 03/03/2024 12:55:51 03/03/2024 13:16:58 Disorder of jaw 20670275 M27.9 Health Concerns Section Related Observation LastModified by Organization Detai ls LastModified Time None Recorded Concern Status LastModified by Organization Details LastModified Time None Recorded Advance Directives Directive None Recorded Payers Insurance Date Sequence Insurance Name Policy Number Policy Acosta Covered Member ID Acosta Member ID Guarantor Name 03/03/2024 1 [facility] ([facility] [id number] Damien Tapia [id number] Damien Tapia Notes Date Note Type Note Provider Name and Address Organization Details Recorded Time 02/02/2024 text/html ROS as noted in the HPI 83-year-old gentleman presents for evaluation of a new painful neck mass. He reports that he had three mandibular teeth extracted three months ago. Shortly thereafter, he developed painful swelling on the right side of the jaw and to a lesser extent on the left as well. In recent weeks, the pain on the right has referred to the ear. He has been taking Tylenol 3 or 4 times a day, though recently the pain has been less and he has not been relying on this. In the interim, he has been diagnosed with new onset anemia. He has had a few bouts of mild to moderate epistaxis but these have resolved. Patient denies change to the voice, dysphagia, and hemoptysis. He has lost approximately 10 pounds in the last 6 months but denies fevers, chills, and night sweats. He has seen his dentist, who does not feel that this is related to the extractions. He has also seen his primary care provider who performed an ultrasound of the neck and the lymph nodes that were imaged or benign in appearance. CELINE GARCIA MD [address] [place] [address],[address], [address], [facility] 02/02/2024 13:05:00 03/03/2024 text/html ROS as noted in the HPI 83 year old male presents to follow up on neck/jaw mass. Reports the inflammation has gone down almost all the way back to normal, and the pain has resolved. No dysphagia, hemoptysis, sore throat, nor hoarseness. No other masses in the neck. No fevers nor weight loss. JOHN MEYERS MD [address] [place] [address],[address], [address], [facility] [place] [facility] 03/03/2024 16:29:19
--- OUTSIDE RECORDS SUMMARY | 2025-04-23 13:50 | XMS_ITS | Encounter Summary ---
Author Organization [facility] Address [address] [place] [address] Phone Care Team Providers Care Fly Setter Name Role Phone Rod Ashley Primary Care Provider [phone] Encounter Details Date Type Department Care Team (Late st Contact Info) Description 02/15/2024 Documentation Only [facility], [address] [place] [address] [place] [address] [place] [address] Social History Tobacco Use Types Packs/Day Years Used Date Smoking Tobacco: Never Assessed Sex and Gender Information Value Date Recorded Sex Assigned at Not on file Legal Sex Male 12:06 PM EDT Gender Identity Not on file Sexual Orientation Not on file documented as of this encounter Plan of Treatment Not on file documented as of this encounter Visit Diagnoses Not on filedocumented in this encounter Care Teams Fly Setter Relationship Specialty Start Date End Date Rod Ashley [address] [place] [address] PCP - General 02/15/24 documented as of this encounter
--- OUTSIDE RECORDS SUMMARY | 2025-04-23 13:51 | XMS_ITS | Patient Health Record ---
Author Organization [facility] [place] Address [address] [place] [address] Care Team Providers Care Physician Chief Of Pathology Name Role Phone Shree Aguiar Primary Care Provider Unav ailable Giana Christina Unavailable [phone] Allergies No Known Allergies Results Component Value Reference Range Notes HEMOGLOBIN A1C (GLYCOHEMOGLO BIN) Reviewed date:11/07/2024 04:14:06 PM Interpretation: Performing Lab: Notes/Report: HEMOGLOBIN A1C % (HH) 6.1 Reason For Referral Diagnosis 1 Type 2 diabetes palma itus with diabetic polyneuropathy (E11.42) Diagnosis 2 Other viral warts (B 07.8) Diagnosis 3 Tinea unguium (B35.1 ) Diagnosis 4 Pain in right toe(s) (M79.674) Diagnosis 5 Pain in left toe(s) (M79.675) Diagnosis 6 Pain in right foot ( M79.671) Diagnosis 7 Pain in left foot (M 79.672) Referring Provider First Name Rod Referring Provider Last Name [facility] Referred Provider Giana Christina Referred Address [address] [place], [place],[address], Referred Provider Specialty Podiatry Referral Priority Routine Medications Medication SIG (Take, Route, Frequency, Duration) Notes Start Date End Date Status Losartan Potassium 100 MG 1 tablet Orall y Once a day Active amLODIPine Besylate 10 MG 1 tablet Orall y Once a day Active Atorvastatin Calcium 10 MG 1 tablet Oral ly Once a day Active Alfuzosin HCl ER 10 MG 1 tablet immediat hiram after the same meal Orally Once a day Active Immunizations Vaccine Route Administration Date Status Comme nts Influenza Unknown 04/26/2023 Administered Social History Tobacco Use: Social History Observation Description Date Details (start date - stop date) Never Smoker NA - NA Tobacco use other than smoking: Question Answer Notes Are you an other tobacco user? No Tobacco Control (Standard) Question Answer Notes Tobacco use: Nonsmoker Additional Findings: Tobacco non-user Current no nsmoker AUDIT-C (Standard) Question Answer Notes Did you have a drink containing alcohol in the p ast year? No Points 0 Interpretation Negative Problems Problem Type SNOMED Code ICD Code Onset Dates Problem Status W/U Status Risk Notes Problem Polyneuropathy due to diabetes mellitus type I (174941771) 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 confirmed Problem Polyneuropathy due to type 2 diabetes mellitus (962489859) Type 2 diabetes mellitus with diabetic polyneuropathy (E11.42) Active confirmed Vital Signs Blood pressure diastolic 60 mm Hg 11/07/2024 Height 5tn86yr in 11/07/2024 Blood pressure systolic 130 mm Hg 11/07/2024 Weight 199 lbs 11/07/2024 BMI 27.75 kg/m2 11/07/2024 Procedures Procedure Date Ordered Date Performed Result Body Sit e 20221-EEIZCLQ NAIL, 6 OR MORE 06/27/2024 N/A 40718-TQYN SKIN LESIONS, 2 TO 4 06/27/2024 N/A 58785-MHLUWPR NAIL, 6 OR MORE 11/07/2024 N/A 74582-HRIS SKIN LESIONS, OVER 4 11/07/2024 N/A Encounters Encounter Location Date [facility] [address] 06/27/2024 Giana Christina Type 2 diabetes mellitus with diabetic polyneuropathy E11.42 and Tinea unguium B35.[address] [address] 11/07/2024 Giana Christina Type 2 diabetes mellitus with diabetic polyneuropathy E11.42 and Tinea unguium B35.[address] [address] 01/24/2025 Giana Christina Assessments Encounter Date Diagnosis (ICD Code) Assessment Notes Treatment Notes Treatment Clinical Notes Section Notes 06/27/2024 Type 2 diabetes mellitus with diabetic polyneuropathy (ICD-10 - E11.42) 06/27/2024 Tinea unguium (ICD-10 - B35.1) 11/07/2024 Type 2 diabetes mellitus with diabetic polyneuropathy (ICD-10 - E11.42) 11/07/2024 Tinea unguium (ICD-10 - B35.1) Plan Of Treatment Pending Test Test Name Order Date 63524-TFWBMAB NAIL, 6 OR MORE 06/27/2024 54428-GHDHIMU NAIL, 6 OR MORE 11/07/2024 71074-PSTX SKIN LESIONS, OVER 4 11/08/19 25 61805-VAEW SKIN LESIONS, 2 TO 4 06/27/20 24 Insurance Providers Payer Name Payer Address Payer Phone Subscriber Number Group Number Insured Name Patient Relationship to Insured Coverage Start Date Coverage End Date [facility] [address] [place] [address] [id number] Damien Tapia Self - patient is the insured Medical (General) History Medical History History ICD Code Arthritis Back,Hip,and Knee pain Cataracts Diabetic High blood pressure Macular degeneration Chicken pox Surgical History Surgery Date(Month/Year) hammer toe rotator cuff tear repair 04/03 TURP (transurethral resection of the pro state) 01/02
--- OUTSIDE RECORDS SUMMARY | 2025-04-23 13:51 | XMS_ITS | Clinical Summary ---
Author Organization [facility] Address [address] [place] [phone] Phone Care Team Providers Care Draw Operator Name Role Phone Shree Urbina Primary Care Provider [phone] Allergies No known active allergies Medications cyanocobalamin (VITAMIN B-12) 100 mcg tablet Take 1 tablet (100 mcg total) by mouth 1 (one) time each day. Active CHOLECALCIFERO L, VITAMIN D3, ORAL Take by mouth. Activ e alfuzosin (UROXATRAL) 10 mg 24 hr tablet Take 1 tablet (10 mg total) by mouth 1 (one) time each day. 90 tablet 1 5 Active amLODIPine (NORVASC) 10 mg tablet Take 1 tablet (10 mg total) by mouth 1 (one) time each day. 90 tablet 2 5 Active losartan (COZAAR) 100 mg tablet Take 1 tablet (100 mg total) by mouth 1 (one) time each day. 90 tablet 2 5 Active triamcinolone (KENALOG) 0.1 % ointment Apply topically 2 (two) times a day if needed for irritation or rash. 30 g 3 5 Active atorvastatin (LIPITOR) 20 mg tablet TAKE 1 TABLET BY MOUTH ONCE A DAY 90 tablet 2 5 Active acetaminophen (TYLENOL) 500 mg tablet Take 2 tablets (1,000 mg total) by mouth every 6 (six) hours if needed for mild pain. Active ibuprofen (ADVIL,MOTRIN) 600 mg tablet Take 1 tablet (600 mg total) by mouth every 6 (six) hours if needed for mild pain. 120 tablet 2 Active ibuprofen (ADVIL,MOTRIN) 600 mg tablet Take 0.5 tablets (300 mg total) by mouth every 6 (six) hours if needed for mild pain. 03/30/20 25 Discontinu ed(Reorder ) Hospital, Clinic, or Other Facility Administered Medication Ordered Dose Route Frequency Start Date End Date Status triamcinolone acetonide (KENALOG-40) 40 mg/mL injection 40 mgIndications:Anemia of chronic disease,Aneurysm of ascending aorta without rupture (CMS/HCC V24),Hypertrophy of prostate without urinary obstruction,Dilated cardiomyopathy (CMS/HCC V24, CMS/HCC V28),Frequent PVCs,Mixed hyperlipidemia,HFrEF (heart failure with reduced ejection fraction) (CMS/HCC V24, CMS/HCC V28),Trigger finger of right thumb,Numbness of right hand,Cheilitis,Acute pain of right shoulder,Essential hypertension 40 mg IAtc Once 10/12/2024 Active lidocaine (XYLOCAINE) 1 % injection 4 mLIndications:Tendini tis of left rotator cuff 4 mL inj Once PRN Procedure 04/05/2025 04/05/2025 Ended methylPREDNISolone acetate (DEPO-Medrol) injection 80 mgIndications:Tendini tis of left rotator cuff 80 mg IAtc Once PRN Procedure 04/05/2025 04/05/2025 Ended Active Problems Problem Noted Date Diagnosed Date Trigger index finger 12/09/2024 Trigger finger of right thumb 12/09/2024 Anemia of chronic disease 04/12/2024 Aneurysm of ascending aorta without rupture ([facility] V24) 06/04/2023 Overview (07/04/2024): Last Assessment & Plan: Most recent echocardiogram completed 11/29/2022 with stable dilatation. Will continue to monitor with serial imaging. Dizziness 12/23/2022 Sick sinus syndrome (CMS/HCC V24, [facility] V28) 0 12/23/2022 Overview (07/04/2024): Last Assessment & Plan: The patient had a 24-hour Holter monitor completed 01/12/2023 revealing 11 pauses lasting 2.5 to 2.7 seconds; metoprolol was subsequently stopped. Previous notes state that he was to have a repeat Holter completed after being off of the metoprolol for several weeks; it does not appear that this ever occurred. As such, we will repeat a 24-hour Holter and continue to readdress this once results are reviewed. Update: The patient called the office to decline repeat 24-hour Holter; he states he is sending a message through the portal regarding this. We will continue to readdress this. Thoracic aortic aneurysm without rupture ([facility] V24) 10/09/2021 Hearing loss 10/28/2018 Overview (07/04/2024): Has hearing loss HFrEF (heart failure with re duced ejection fraction) ([facility] V24, [facility] V28) 10/05/2018 Hyperlipidemia 04/21/2016 Dilated cardiomyopathy ([facility] V24, [facility] V28 ) 03/26/2016 Overview (07/04/2024): Last Assessment & Plan: The patient's most recent echocardiogram completed 11/30/2023 reveals mild concentric LVH with global hypokinesis and a mildly reduced LVEF at 40 to 45%. He appears euvolemic on exam today and offers no symptoms concerning for acute heart failure. In line with GDMT, he has been maintained on losartan and spironolactone. He was previously intolerant of beta-blockers. We will not make any changes to his medical therapies today. I've asked the patient to call if they develop worsening symptoms of heart failure such as increased shortness of breath, new or worsening cough, increased swelling in the legs or ankles, or weight gain of more than 2 pounds in one day or 4 pounds in one week. 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 Updated echocardiogram completed 11/30/2023 does not show any worsening left ventricular function, EF stable at 40 to 45%. The patient is asymptomatic of his PVCs. He did not previously tolerate beta-blockade. We will continue to monitor his cardiac function closely and repeat echocardiogram for any potential decline; concern present that frequent PVCs may potentially lead to worsening cardiomyopathy. The patient is aware to call for any questions or concerns, including new symptoms such as peripheral edema, shortness of breath, or lightheadedness or dizziness. Onychomycosis 06/07/2014 Controlled diabetes mellitus type II without complication ([facility] V24, [facility] V28) 06/02/2013 Left shoulder pain 09/23/2012 Essential hypertension 03/17/2011 Overview (07/04/2024): Last Assessment & Plan: Blood pressure is well-controlled on current medical therapies; continue losartan, spironolactone, and amlodipine. We will update a metabolic panel in 1 to 2 weeks to ensure stability of electrolytes and renal function given recent addition of spironolactone. Impotence of organic origin 01/05/2007 Hematuria 09/02/2005 Overview (07/04/2024): IMO update Hypertrophy of prostate without urinary obstruct ion 09/01/2005 Nonspecific abnormal electrocardiogram (ECG) (EK G) 09/01/2005 Mixed hyperlipidemia 09/01/2005 Overview (07/04/2024): Last Assessment & Plan: Given the patient's history of diet-controlled diabetes, LDL goal for this patient should be less than 70. His most recent lipid panel was completed on 12/15/2023 revealing an LDL of 83. Subsequently his atorvastatin was increased from 10 mg daily to 20 mg daily; he appears to be tolerating this well. We will continue to readdress this as needed; no further changes at this time. Encounters Date Type Department Care Team Description 04/21/2025 1:30 PM EDT Treatment Outpatient Rehabilitation - [address] [phone] Minoo Dukes PTA Hip pain, unspecified laterality (Primary Dx) 04/20/2025 11:30 AM EDT Consult Orthopedic Surgery - [place] [address] [facility] [address] [place] [id number] Faye Solo MD Primary osteoarthritis of right hip 04/19/2025 9:30 AM EDT Treatment Outpatient Rehabilitation - [address] [phone] Minoo Dukes PTA Hip pain, unspecified laterality (Primary Dx) 04/14/2025 10:30 AM EDT Evaluation Outpatient Rehabilitation - [address] [phone] Chung Ontiveros, PT Hip pain, unspecified laterality; Bilateral shoulder pain, unspecified chronicity; Tendinitis of left rotator cuff; Rotator cuff tendonitis, right; Primary osteoarthritis of right hip 04/05/2025 9:30 AM EDT Office Visit Orthopedics - [address] [phone] Nathan Arzola PA Sprain of anterior talofibular ligament of left ankle, initial encounter (Primary Dx); Bilateral shoulder pain, unspecified chronicity; Tendinitis of left rotator cuff; Rotator cuff tendonitis, right; Sprain of left ankle, unspecified ligament, initial encounter 04/05/2025 8:44 AM EDT - 04/05/2025 11:59 PM EDT Hospital Encounter [facility] [place] [address] [place] [address] Sprain of left ankle, unspecified ligament, initial encounter Discharge Disposition: Home or Self Care 03/22/2025 9:00 AM EDT Consult Orthopedics - [address] [phone] Nathan Arzola PA Rotator cuff tendonitis, right (Primary Dx); Hip pain, unspecified laterality; Bilateral shoulder pain, unspecified chronicity; Tendinitis of left rotator cuff; Primary osteoarthritis of right hip 03/22/2025 8:37 AM EDT - 03/22/2025 11:59 PM EDT Hospital Encounter [facility] [place] [address] [place] [address] Right hip pain Discharge Disposition: Home or Self Care 03/22/2025 8:30 AM EDT - 03/22/2025 11:59 PM EDT [facility] [address] [place] [address] Bilateral shoulder pain, unspecified chronicity Discharge Disposition: Home or Self Care 03/07/2025 Telephone Adult Medicine [address] [phone] Shree Urbina PA 03/07/2025 Telephone Adult Medicine [address] [phone] Shree Urbina, PA from Last 3 Months Immunizations Immunization Administration Dates Next Due Influenza Quadravalent, MDCK , 0.5ml, preservative free (Flucelvax) 6mo and older 05/26/2019 Influenza trivalent, 0.5mL ( Fluad) 65yo and older 05/14/2023,05/26/2022,05/08/2020,05/23,05/17/2017 Influenza trivalent, 0.5mL, preservative free (Fluarix; FluLaval; Fluzone) ages 6mo and older (Afluria) 3 years and older 05/20/2016,05/08/2015,06/07/2014,05/24,04/27/2012,04/29/2011,05/23/2010 ,04/20/2009,05/05/2008,05/05/2007 Pfizer SARS-CoV-2 COVID-19, mRNA, LNP-S, preservative free 06/12/2021 Pneumococcal conjugate 13 va lent (Prevnar 13, PCV13) 2mo and older 12/12/2014 Pneumococcal polysaccharide 23 valent (Pneumovax 23) 2yo and older 11/07/2008 Td Tetanus diptheria (Tdvax) 7yo and older 06/12/2020 Td, Unspecified 12/13/2002 Tdap Tetanus diptheria acell ular pertussis (Boostrix; Adacel) 7yo and older 09/23/2012 Zoster Live 12/10/2011,05/23/2010 Surgical History Surgery Date Site/Laterality Comments OTHER SURGICAL HISTORY PROCEDURE: RI TONSILLECTOMY PRIMARY/SECONDARY AGE 12/> OTHER SURGICAL HISTORY PROCEDURE: RI REVJ MASTOIDECTOMY RSLTG COMPL MASTOIDECTOMY CIRCUMCISION, PRIMARY PROCEDURE: HISTORICAL CIRCUMCISION OTHER SURGICAL HISTORY PROCEDURE: HISTORY OTHER; COMMENT: RT FOOT HAMMER TOE SURGERY DR MENA 2O02 OTHER SURGICAL HISTORY PROCEDURE: HISTORY OTHER; COMMENT: rt shoulder rotator cuff repair dr machado TURP / TRANSURETHRAL INCISIO N / DRAINAGE PROSTATE PROCEDURE: HISTORICAL TURP; COMMENT: 2008 DR VEGA COLONOSCOPY 02/18/2011 PROCEDURE: RI COLONOSCOPY FLX DX W/COLLJ SPEC WHEN PFRMD; COMMENT: Normal Medical History Medical History Date Comments Other and unspecified hyperlipidemia DX:Other and unspecified hyperlipidemia Prostatitis, unspecified DX:Pros tatitis, unspecified; COMMENT: elevated psa, multiple biopsy, 2002, all negative Chest pain, unspecified DX:Chest pain, unspecified; COMMENT: nuclear stress showed no ischemia, some ekg abnormalities of uncertain significance Mixed hyperlipidemia 09/01/2005 DX:Mixed hy perlipidemia Impaired fasting glucose 09/01/2005 DX:Impa ired fasting glucose Nonspecific abnormal electrocardiogram (ECG) (EKG) 09/01/2005 DX:Nonspecific abnormal electrocardiogram (ECG) (EKG) Hypertrophy of prostate with out urinary obstruction and other lower urinary tract symptoms (LUTS) 09/01/2005 DX:Hypertrophy of prosta te without urinary obstruction and other lower urinary tract symptoms (LUTS) Abnormal maternal glucose to lerance, antepartum DX:Abnormal maternal glucose tolerance, antepartum Esophageal reflux DX:Esophageal reflux Unspecified essential hypertension 03/17/2011 DX:Unspecified essential hypertension Impacted cerumen 09/23/2012 DX:Impacted cer umen Left shoulder pain 09/23/2012 DX:Left shoul kin pain Onychomycosis 06/07/2014 DX:Onychomycosis Hyperlipidemia 04/21/2016 DX:Hyperlipidemi a Hearing loss 10/28/2018 DX:Hearing loss; COMMENT: Has hearing loss Family History Medical History Relation Name Comments No Known Problems Aunt No Known Problems Brother No Known Problems Father No Known Problems Maternal Grandfather No Known Problems Maternal Grandmother No Known Problems Mother No Known Problems Other No Known Problems Paternal Grandfather No Known Problems Paternal Grandmother No Known Problems Sister No Known Problems Uncle Blindness Neg Hx Cataracts Neg Hx Glaucoma Neg Hx Macular degeneration Neg Hx Strabismus Neg Hx Relation Name Status Comments Aunt Brother Alive CAD stents Father (Age 85) Maternal Grandfather Maternal Grandmother Mother (Age 82) adult onse t dm Other Paternal Grandfather Paternal Grandmother Sister Alive Uncle Social History Tobacco Use Types Packs/Day Years Used Date Smoking Tobacco: Former Cigarettes 1 8.6 0 12/24/1958 - 07/27/1967 Smokeless Tobacco: Never Tobacco Cessation:Counseling Given: Not [...] care for your loved ones. For example, childcare provider or elderly care for an older adult? [...] on file Sexual Orientation Not on file Obstetrics History Last Filed Vital Signs Vital Sign Reading Time Taken Comments Blood Pressure 152/63 12/28/2024 11:39 AM EDT Pulse 61 10/24/2024 2:05 PM EDT Temperature 37.1 C (98.8 F) 10/24/2024 2:05 PM EDT Respiratory Rate 16 04/05/2025 9:22 AM EDT Oxygen Saturation - - Inhaled Oxygen Concentration - - Weight 93.9 kg (207 lb) 04/05/2025 9:22 AM EDT Height 180.3 cm (5' 11 ) 04/05/2025 9:22 AM EDT Body Mass Index 28.87 04/05/2025 9:22 AM EDT Plan of Treatment Upcoming Encounters Date Type Department Care Team (Late st Contact Info) Description 04/26/2025 9:15 AM EDT Treatment Outpatient Rehabilitation - [address] [phone] Minoo Dukes PTA 04/28/2025 10:30 AM EDT Treatment Outpatient Rehabilitation - [address] [phone] Chung Ontiveros, PT [address] [place] [address] 05/01/2025 9:30 AM EDT Treatment Outpatient [facility] - [address] [phone] Minoo Dukes, SHILPA 05/05/2025 9:30 AM EDT Treatment Outpatient [address] [phone] Chung Ontiveros, PT [address] [place] [address] 05/08/2025 10:00 AM EDT Treatment Outpatient [address] [phone] Minoo Dukes, DOG BREEDER 05/16/2025 10:30 AM EDT Treatment Outpatient [address] [phone] Chung Ontiveros, PT [address] [place] [address] 05/26/2025 11:00 AM EDT Office Visit Adult Medicine [address] [phone] Louise Trivedi PA [address] [place] [address] Health Maintenance Due Date Last Done Comments Zoster Vaccines (2 of 3) 02/04/2012 12/10/2011, 04/27 RSV Immunization Adult Patients (1 - 1-dose 75+ series) 10/20/2015 COVID-19 Vaccine ( season) 2025 12/10/2021, 07/14/2021, 06/12/2021, Additional history exists Influenza Vaccine (#1) 2025 , 05/14/2023, 04/26/2023, Additional history exists Diabetes: Annual Foot Exam 03/30/2025 03/30/2024 Diabetes: Annual Retina Eye Exam 10/06/2025 10/06/2024 Diabetes: Blood Sugar Control Test (HGBA1C) 10/09/2025 04/11/2025, 10/11/2024, 04/08/2024, Additional history exists Falls Risk Assessment 10/12/2025 10/12/2024 Social Influencers of Health Screening 10/12/2025 10/12/2024 Diabetes: Annual Urine Albumin-Creatinine Ratio (uACR) 04/11/2026 04/11/2025, 10/11/2024, 04/08/2024 Diabetes: Annual GFR (Glomerular Filtration Rate) 04/11/2026 04/11/2025, 10/11/2024, 04/08/2024, Additional history exists Hypertension/CHF/CAD Annual BMP Blood Test 04/11/2026 04/11/2025, 10/11/2024, 04/08/2024, Additional history exists Cholesterol Screening (Lipid Panel) 04/11/2030 04/11/2025, 10/11/2024, 04/08/2024, Additional history exists DTaP,Tdap,and Td Vaccines (5 - Td or Tdap) 06/13/2030 06/13/2020, 06/12/2020, 09/23/2012, Additional history exists Pneumococcal Vaccine: 50+ Years Completed 12/12/2014, 11/07/2008 Depression Screening Completed 10/12/2024 HIB Vaccines Aged Out No longer eligi ble based on patient's age to complete this topic HPV Vaccines Aged Out No longer eligi ble based on patient's age to complete this topic Hepatitis A Vaccines Aged Out No long er eligible based on patient's age to complete this topic Hepatitis B Vaccines Aged Out No long er eligible based on patient's age to complete this topic IPV Vaccines Aged Out No longer eligi ble based on patient's age to complete this topic MMR Vaccines Aged Out No longer eligi ble based on patient's age to complete this topic Meningococcal ACWY Vaccine Aged Out N o longer eligible based on patient's age to complete this topic Meningococcal B Vaccine Aged Out No l onger eligible based on patient's age to complete this topic RSV Immunization Patients Under 20 months Aged Out No longer eligible based on patient's age to complete this topic Varicella Vaccines Aged Out No longer eligible based on patient's age to complete this topic Goals Goal Patient Goal Type Associated Problems Recent Progress Patient-Stated? Author not have pain General Yes Chung Ontiveros, PT PT STG 8 visits from eval on 04/14/25 General No Chung Ontiveros, PT [...] pain PT LTG x 15 visits from eval 04/14/25 Chung Bailon, PT Note: [x] = goal MET [] = goal NOT MET [] Pt will have no difficulty with dressing LE [] Pt will wake 1 x/wk at most due to hip Sx Procedures Procedure Name Priority Date/Time Associated Diagnosis Comments CBC WITH AUTO DIFFERENTIAL Routine 04/11/2025 7:55 AM EDT Anemia of chronic disease Aneurysm of ascending aorta without rupture (CMS/HCC V24) Hypertrophy of prostate without urinary obstruction Dilated cardiomyopathy (CMS/HCC V24, CMS/HCC V28) Frequent PVCs Mixed hyperlipidemia HFrEF (heart failure with reduced ejection fraction) (CMS/HCC V24, CMS/HCC V28) Trigger finger of right thumb Numbness of right hand LIPID PANEL WITH REFLEX TO DIRECT LDL Routine 04/11/2025 7:55 AM EDT Anemia of chronic disease Aneurysm of ascending aorta without rupture (CMS/HCC V24) Hypertrophy of prostate without urinary obstruction Dilated cardiomyopathy (CMS/HCC V24, CMS/HCC V28) Frequent PVCs Mixed hyperlipidemia HFrEF (heart failure with reduced ejection fraction) (CMS/HCC V24, CMS/HCC V28) Trigger finger of right thumb Numbness of right hand MICROALBUMIN CREATININE URINE RATIO Routine 04/11/2025 7:55 AM EDT Anemia of chronic disease Aneurysm of ascending aorta without rupture (CMS/HCC V24) Hypertrophy of prostate without urinary obstruction Dilated cardiomyopathy (CMS/HCC V24, CMS/HCC V28) Frequent PVCs Mixed hyperlipidemia HFrEF (heart failure with reduced ejection fraction) (CMS/HCC V24, CMS/HCC V28) Trigger finger of right thumb Numbness of right hand COMPREHENSIVE METABOLIC PANEL Routine 04/11/2025 7:55 AM EDT Anemia of chronic disease Aneurysm of ascending aorta without rupture (CMS/HCC V24) Hypertrophy of prostate without urinary obstruction Dilated cardiomyopathy (CMS/HCC V24, CMS/HCC V28) Frequent PVCs Mixed hyperlipidemia HFrEF (heart failure with reduced ejection fraction) (CMS/HCC V24, CMS/HCC V28) Trigger finger of right thumb Numbness of right hand HEMOGLOBIN A1C Routine 04/11/2025 7:55 AM EDT Anemia of chronic disease Aneurysm of ascending aorta without rupture (CMS/HCC V24) Hypertrophy of prostate without urinary obstruction Dilated cardiomyopathy (CMS/HCC V24, CMS/HCC V28) Frequent PVCs Mixed hyperlipidemia HFrEF (heart failure with reduced ejection fraction) (CMS/HCC V24, CMS/HCC V28) Trigger finger of right thumb Numbness of right hand CBC AND DIFFERENTIAL Routine 04/11/2025 7:55 AM EDT Anemia of chronic disease Aneurysm of ascending aorta without rupture (CMS/HCC V24) Hypertrophy of prostate without urinary obstruction Dilated cardiomyopathy (CMS/HCC V24, CMS/HCC V28) Frequent PVCs Mixed hyperlipidemia HFrEF (heart failure with reduced ejection fraction) (CMS/HCC V24, CMS/HCC V28) Trigger finger of right thumb Numbness of right hand RI ARTHROCENTESIS/ASPIRA TION/INJECTION MAJOR JOINT/BURSA W/O U/S GUIDANCE Routine 04/05/2025 9:30 AM EDT Tendinitis of left rotator cuff XR ANKLE 3+ VIEWS LEFT Routine 04/05/2025 8:58 AM EDT Sprain of left ankle, unspecified ligament, initial encounter RI ARTHROCENTESIS/ASPIRA TION/INJECTION MAJOR JOINT/BURSA W/O U/S GUIDANCE Routine 03/22/2025 9:00 AM EDT Rotator cuff tendonitis, right XR HIP 2-3 VIEWS RIGHT Routine 03/22/2025 8:56 AM EDT Right hip pain XR SHOULDER 2+ VIEWS BILAT Routine 03/22/2025 8:56 AM EDT Bilateral shoulder pain, unspecified chronicity DIABETES FOOT EXAM Routine 03/30/2024 from Last 3 Months or Most Recently Relevant to Health Maintenance Results * Lipid panel with reflex to direct LDL (04/11/2025 7:55 AM EDT) Pathologist [facility] [place] Cholesterol 141 0 - 200 mg/dL LAB CHEMISTRY METHOD 04/11/2025 10:[address] [facility] Triglycerides 62 0 - 150 mg/dL LAB CHEMISTRY METHOD 04/11/2025 10:[address] [facility] HDL 65 >=40 mg/dL LAB CHEMISTRY METHOD 04/11/2025 10:[address] [facility] LDL Calculated 64 0 - 100 mg/dL LAB CHEMISTRY METHOD 04/11/2025 10:[address] [facility] Comment:Estimated LDL Calcul ated using equation: Total cholesterol - HDL cholesterol - (Triglycerides/5) VLDL Cholesterol Main 12.4 mg/dL LAB CHEMISTRY METHOD 04/11/2025 10:[address] [facility] Non HDL Chol. (LDL+VLDL) 76 <145 mg/dL LAB CHEMISTRY METHOD 04/11/2025 10:[address] [facility] Chol/HDL Ratio 2.2 0.0 - 4.4 LAB CHEMISTRY METHOD 04/11/2025 10:35 AM [facility] Blood Venous blood specimen / Unknown Venipuncture / Unknown 04/11/2025 7:55 AM EDT 04/11/2025 7:55 AM EDT us Shree FLEMING LAB BLOOD ORDERABLES Zara pastrana Result [facility] [address] [place] [address], * (ABNORMAL) CBC auto differential (04/11/2025 7:55 AM EDT) Pathologist [facility] [place] WBC 9.5 4.8 - 10.8 K/mcL LAB HEMETOLOGY METHOD 04/11/2025 10:10 AM [facility] RBC 4.50 4.50 - 5.50 M/mcL LAB HEMETOLOGY METHOD 04/11/2025 10:10 AM [facility] Hemoglobin 13.1(L) 13.5 - 17.5 g/dL LAB HEMETOLOGY METHOD 04/11/2025 10:10 AM [facility] Hematocrit 39.7(L) 42.0 - 54.0 % LAB HEMETOLOGY METHOD 04/11/2025 10:10 AM [facility] MCV 89.2 79.0 - 98.0 FL LAB HEMETOLOGY METHOD 04/11/2025 10:10 AM [facility] MCH 29.4 27.0 - 32.0 pcg LAB HEMETOLOGY METHOD 04/11/2025 10:10 AM [facility] MCHC 33.0 32.0 - 37.0 g/dL LAB HEMETOLOGY METHOD 04/11/2025 10:10 AM [facility] RDW 12.9 11.0 - 15.0 % LAB HEMETOLOGY METHOD 04/11/2025 10:10 AM [facility] Platelets 254 130 - 400 K/mcL LAB HEMETOLOGY METHOD 04/11/2025 10:10 AM [facility] MPV 10.0 7.0 - 11.0 FL LAB HEMETOLOGY METHOD 04/11/2025 10:10 AM [facility] NRBC 0.0 <1.0 % LAB HEMETOLOGY METHOD 04/11/2025 10:10 AM [facility] NRBC Absolute 0.00 <0.10 K/mcL LAB HEMETOLOGY METHOD 04/11/2025 10:10 AM [facility] Neutrophils Relative 60.7 % LAB HEMETOLOGY METHOD 04/11/2025 10:[address] [facility] Lymphocytes Relative 21.2 % LAB HEMETOLOGY METHOD 04/11/2025 10:10 AM [facility] Monocytes Relative 14.6 % LAB HEMETOLOGY METHOD 04/11/2025 10:[address] [facility] Eosinophils Relative 1.4 % LAB HEMETOLOGY METHOD 04/11/2025 10:10 AM [facility] Basophils Relative 0.5 % LAB HEMETOLOGY METHOD 04/11/2025 10:10 AM [facility] Immature Granulocytes Relative 1.6 % LAB HEMETOLOGY METHOD 04/11/2025 10:10 AM [facility] Neutrophils Absolute 5.78 1.50 - 7.00 K/mcL LAB HEMETOLOGY METHOD 04/11/2025 10:10 AM [facility] Lymphocytes Absolute 2.02 1.00 - 5.00 K/mcL LAB HEMETOLOGY METHOD 04/11/2025 10:10 AM [facility] Monocytes Absolute 1.39(H) 0.20 - 1.00 K/mcL LAB HEMETOLOGY METHOD 04/11/2025 10:10 AM [facility] Eosinophils Absolute 0.13 0.00 - 0.50 K/mcL LAB HEMETOLOGY METHOD 04/11/2025 10:10 AM [facility] Basophils Absolute 0.05 0.00 - 0.20 K/mcL LAB HEMETOLOGY METHOD 04/11/2025 10:10 AM [facility] Immature Granulocytes Absolute 0.15(H) 0.00 - 0.03 K/mcL LAB HEMETOLOGY METHOD 04/11/2025 10:10 AM [facility] Blood Venous blood specimen / Unknown Venipuncture / Unknown 04/11/2025 7:55 AM EDT 04/11/2025 7:55 AM EDT Shree FLEMING LAB BLOOD ORDERABLES Zara l Result Performing Organization Address [facility]/ZIP Co de Phone Number [facility] [address] [place] [address], [place] [phone] * Microalbumin creatinine urine ratio (04/11/2025 7:55 AM EDT) Creatinine, Urine 188.0 mg/dL LAB CHEMISTRY METHOD 04/11/2025 11:[address] [facility] Microalb, Ur 8.0 0.0 - 29.0 mg/L LAB CHEMISTRY METHOD 04/11/2025 11:[address] [facility] Microalb/Creat Ratio 4 <30 mg/g creat LAB CHEMISTRY METHOD 04/11/2025 11:[address] [facility] Urine Urine specimen obtained by clean catch procedure / Unknown Non-blood Collection / Unknown 04/11/2025 7:55 AM EDT 04/11/2025 7:55 AM EDT Shree FLEMING LAB URINE ORDERABLES Zara l Result Performing Organization Address City/[facility]/ZIP Co de Phone Number [facility] [address] [place] [address], [place] [phone] * Hemoglobin A1c (04/11/2025 7:55 AM EDT) Hemoglobin A1C 6.4 <6.5 % LAB CHEMISTRY METHOD 04/11/2025 1:[address] [facility] Mean Bld Glu Estim. 137 mg/dL LAB CHEMISTRY METHOD 04/11/2025 1:[address] [facility] Blood Venous blood specimen / Unknown Venipuncture / Unknown 04/11/2025 7:55 AM EDT 04/11/2025 7:55 AM EDT Shree FLEMING LAB BLOOD ORDERABLES Zara zeina Result [facility] [address] [place] [address], * (ABNORMAL) Comprehensive metabolic panel (04/11/2025 7:55 AM EDT) Sodium 127(L) 133 - 145 mmol/L LAB CHEMISTRY METHOD 04/11/2025 10:[address] [facility] Potassium 5.0 3.5 - 5.5 mmol/L LAB CHEMISTRY METHOD 04/11/2025 10:35 AM [facility] Chloride 93(L) 96 - 110 mmol/L LAB CHEMISTRY METHOD 04/11/2025 10:35 AM [facility] CO2 30 21 - 32 mmol/L LAB CHEMISTRY METHOD 04/11/2025 10:35 AM [facility] Anion Gap 4 3 - 11 LAB CHEMISTRY METHOD 04/11/2025 10:35 AM [facility] Glucose 108(H) 70 - 100 mg/dL LAB CHEMISTRY METHOD 04/11/2025 10:35 AM [facility] BUN 15 5 - 25 mg/dL LAB CHEMISTRY METHOD 04/11/2025 10:35 AM [facility] Creatinine 0.76 0.70 - 1.30 mg/dL LAB CHEMISTRY METHOD 04/11/2025 10:35 AM [facility] eGFR 89 >=60 mL/min/1. 73m2 LAB CHEMISTRY METHOD 04/11/2025 10:35 AM [facility] Comment:Calculation based on the Chronic Kidney Disease Epidemiology Collaboration (CKD-EPI) equation refit without adjustment for race. BUN/Creatinine Ratio 19.7 LAB CHEMISTRY METHOD 04/11/2025 10:[address] [facility] Calcium 9.3 8.5 - 10.5 mg/dL LAB CHEMISTRY METHOD 04/11/2025 10:35 AM [facility] AST (SGOT) 12 10 - 42 unit/L LAB CHEMISTRY METHOD 04/11/2025 10:35 AM [facility] ALT (SGPT) 23 10 - 60 unit/L LAB CHEMISTRY METHOD 04/11/2025 10:[address] [facility] Alkaline Phosphatase 71 42 - 121 unit/L LAB CHEMISTRY METHOD 04/11/2025 10:35 AM [facility] Total Protein 6.3 6.0 - 8.0 g/dL LAB CHEMISTRY METHOD 04/11/2025 10:35 AM [facility] Albumin 3.7 3.2 - 5.0 g/dL LAB CHEMISTRY METHOD 04/11/2025 10:35 AM [facility] Total Bilirubin 0.7 0.0 - 1.4 mg/dL LAB CHEMISTRY METHOD 04/11/2025 10:35 AM [facility] Blood Venous blood specimen / Unknown Venipuncture / Unknown 04/11/2025 7:55 AM EDT 04/11/2025 7:55 AM EDT Shree FLEMING LAB BLOOD ORDERABLES Zara l Result [facility] [address] [place] [address], * RI ARTHROCENTESIS/ASPIRATION/INJECTION MAJOR JOINT/BURSA W/O U/S GUIDANCE (04/05/2025 9:30 AM EDT) Narrative Nathan Arzola PA - 04/05/2025 9:30 AM EDT BERNADETTE Velazquez 04/05/2025 9:51 AM L Inj/Asp: L subacromial bursa Indications: pain Details: 22 G needle, posterior approach Medications: 4 mL lidocaine 1 %; 80 mg methylPREDNISolone acetate 80 mg/mL Outcome: tolerated well, no immediate complications Informed Consent: Site: Shoulder Laterality: Left Relevant images/test results available and reviewed: yes Health status cleared: Yes Procedure/treatment, purpose, treatment alternatives, risks/potential complications and benefits explained: yes Risk/complications/benefits details: Risks include but are not limited to: The treatment may not accomplish the desired results. Additionally bleeding, infection, damage to tendon, nerve, cartilage, muscle; thinning or lightening of the skin in the area of injection; flushing or redness of the face, elevated blood pressure or blood sugar, allergic reaction, rash, increased pain Benefits include relief of inflammation and pain Patient questions answered: yes Patient agrees, verbalizes understanding, and wants to proceed: yes Consent given by: Patient Informed consent discussion completed by Physician/ROLANDO with patient: Verbal Pre-procedure timeout performed: yes us Nathan FLEMING IN CLINIC/BEDSIDE ORDERABLES Fin al Result * XR Ankle 3+ Views Left (04/05/2025 8:58 AM EDT) Anatomical Region Laterality Modality Lower Extremities, Ankle Left Radiogr aphic Imaging 04/05/2025 3:24 PM EDT Impressions 04/05/2025 3:26 PM EDT Mild soft tissue swelling. -------- FINAL REPORT -------- Dictated By: Dorota Marc Dictated Date: 04/05/2025 15:24 ET Assigned Physician: Dorota Marc Reviewed and Electronically Signed By: Dorota Marc Signed Date: 04/05/2025 15:26 ET Workstation ID: [id number] Transcribed By: Self Edit Transcribed Date: 04/05/2025 15:24 ET Narrative 04/05/2025 3:26 PM EDT LEFT ANKLE, 3 VIEWS HISTORY: Ankle pain. PRIORS: None. FINDINGS: No fracture, malalignment, or foreign body is seen. There is mild soft tissue swelling overlying the lateral malleolus. The ankle mortise appears normally aligned. There is a small plantar spur. Procedure Note Dorota Marc MD - 04/05/2025 LEFT ANKLE, 3 VIEWS HISTORY: Ankle pain. PRIORS: None. FINDINGS: No fracture, malalignment, or foreign body is seen. There is mild soft tissue swelling overlying the lateral malleolus. Theankle mortise appears normally aligned. There is a small plantar spur. IMPRESSION: Mild soft tissue swelling. -------- FINAL REPORT -------- Dictated By: Dorota Marc Dictated Date: 04/05/2025 15:24 ET Assigned Physician: Dorota Marc Reviewed and Electronically Signed By: Dorota Marc Signed Date: 04/05/2025 15:26 ET Workstation ID: [id number] Transcribed By: Self Edit Transcribed Date: 04/05/2025 15:24 ET us Nathan FLEMING IMG XR PROCEDURES Final Result * RI ARTHROCENTESIS/ASPIRATION/INJECTION MAJOR JOINT/BURSA W/O U/S GUIDANCE (03/22/2025 9:00 AM EDT) Nathan Yoder PA - 03/22/2025 9:00 AM EDT BERNADETTE Velazquez 03/22/2025 9:37 AM L Inj/Asp: R subacromial bursa Indications: pain Details: 22 G needle, posterior approach Medications: 4 mL lidocaine 1 %; 80 mg methylPREDNISolone acetate 80 mg/mL Outcome: tolerated well, no immediate complications Informed Consent: Site: Shoulder Laterality: Right Relevant images/test results available and reviewed: yes Health status cleared: Yes Procedure/treatment, purpose, treatment alternatives, risks/potential complications and benefits explained: yes Risk/complications/benefits details: Risks include but are not limited to: The treatment may not accomplish the desired results. Additionally bleeding, infection, damage to tendon, nerve, cartilage, muscle; thinning or lightening of the skin in the area of injection; flushing or redness of the face, elevated blood pressure or blood sugar, allergic reaction, rash, increased pain Benefits include relief of inflammation and pain Patient questions answered: yes Patient agrees, verbalizes understanding, and wants to proceed: yes Consent given by: Patient Informed consent discussion completed by Physician/ROLANDO with patient: Verbal Pre-procedure timeout performed: yes us Nathan FLEMING IN CLINIC/BEDSIDE ORDERABLES Fin al Result * XR Hip 2-3 Views Right (03/22/2025 8:56 AM EDT) Anatomical Region Laterality Modality Lower Extremities, Hip Right Radiograp hic Imaging 03/22/2025 3:37 PM EDT Impressions 03/22/2025 3:40 PM EDT Calcific trochanteric bursitis of the right hip. Degenerative changes of both hips. Possible bilateral femoral acetabular impingement syndrome. Clinical correlation suggested. -------- FINAL REPORT -------- Dictated By: Dorota Marc Dictated Date: 03/22/2025 15:37 ET Assigned Physician: Dorota Marc Reviewed and Electronically Signed By: Dorota Marc Signed Date: 03/22/2025 15:40 ET Workstation ID: [id number] Transcribed By: Self Edit Transcribed Date: 03/22/2025 15:37 ET Narrative 03/22/2025 3:40 PM EDT PELVIS, SINGLE FRONTAL VIEW RIGHT HIP, FRONTAL & FROG LEG LATERAL VIEWS HISTORY: Joint pain, hip. PRIORS: None. FINDINGS: There is narrowing of the superomedial aspect of each hip joint. There is mild spurring about the lateral acetabulum of each hip. There is slight bulge in the contour of the lateral aspect of each femoral head. No acute fracture, malalignment, or soft tissue abnormality is seen. There are coarse soft tissue calcifications lateral to the right greater trochanter. There is degenerative change of the visualized lower lumbar spine. There is atherosclerosis. Procedure Note Dorota Marc MD - 03/22/2025 PELVIS, SINGLE FRONTAL VIEW RIGHT HIP, FRONTAL & FROG LEG LATERAL VIEWS HISTORY: Joint pain, hip. PRIORS: None. FINDINGS: There is narrowing of the superomedial aspect of each hipjoint. There is mild spurring about the lateral acetabulum of each hip. There is slight bulge in the contour of the lateral aspect of each femoralhead. No acute fracture, malalignment, or soft tissue abnormality is seen. There are coarse soft tissue calcifications lateral to the right greatertrochanter. There is degenerative change of the visualized lower lumbar spine. There is atherosclerosis. IMPRESSION: Calcific trochanteric bursitis of the right hip. Degenerative changes of both hips. Possible bilateral femoral acetabularimpingement syndrome. Clinical correlation suggested. -------- FINAL REPORT -------- Dictated By: Dorota Marc Dictated Date: 03/22/2025 15:37 ET Assigned Physician: Dorota Marc Reviewed and Electronically Signed By: Dorota Marc Signed Date: 03/22/2025 15:40 ET Workstation ID: [id number] Transcribed By: Self Edit Transcribed Date: 03/22/2025 15:37 ET Nathan FLEMING IMG XR PROCEDURES Final Result * XR Shoulder 2+ Views bilat (03/22/2025 8:56 AM EDT) Anatomical Region Laterality Modality Upper Extremities, Shoulder Bilateral Radi ographic Imaging 03/22/2025 3:31 PM EDT Impressions 03/22/2025 3:34 PM EDT Postoperative and degenerative changes of the right shoulder. Calcific tendinitis/bursitis of the right shoulder. Degenerative changes of the left shoulder as described. -------- FINAL REPORT -------- Dictated By: Dorota Marc Dictated Date: 03/22/2025 15:31 ET Assigned Physician: Dorota Marc Reviewed and Electronically Signed By: Dorota Marc Signed Date: 03/22/2025 15:34 ET Workstation ID: [id number] Transcribed By: Self Edit Transcribed Date: 03/22/2025 15:31 ET Narrative 03/22/2025 3:34 PM EDT BILATERAL SHOULDERS, 4 VIEWS EACH HISTORY: Bilateral shoulder pain. PRIORS: None. FINDINGS: Right shoulder: There are 2 pins in the right humeral head. There are postoperative changes of the acromioclavicular joint. There are coarse soft tissue calcifications lateral to the right humeral head. There is moderate degenerative change of the glenohumeral joint. Left shoulder:. There is moderate degenerative change of the acromioclavicular joint and mild degenerative change of the glenohumeral joint. There is mild spurring of the greater tuberosity. No fracture, malalignment, or foreign body is seen. There is degenerative change of the spine. Procedure Note Dorota Marc MD - 03/22/2025 BILATERAL SHOULDERS, 4 VIEWS EACH HISTORY: Bilateral shoulder pain. PRIORS: None. FINDINGS: Right shoulder: There are 2 pins in the right humeral head. There arepostoperative changes of the acromioclavicular joint. There are coarsesoft tissue calcifications lateral to the right humeral head. There ismoderate degenerative change of the glenohumeral joint. Left shoulder:. There is moderate degenerative change of theacromioclavicular joint and mild degenerative change of the glenohumeraljoint. There is mild spurring of the greater tuberosity. No fracture, malalignment, or foreign body is seen. There is degenerative change of the spine. IMPRESSION: Postoperative and degenerative changes of the right shoulder. Calcific tendinitis/bursitis of the right shoulder. Degenerative changes of the left shoulder as described. -------- FINAL REPORT -------- Dictated By: Dorota Marc Dictated Date: 03/22/2025 15:31 ET Assigned Physician: Dorota Marc Reviewed and Electronically Signed By: Dorota Marc Signed Date: 03/22/2025 15:34 ET Workstation ID: [id number] Transcribed By: Self Edit Transcribed Date: 03/22/2025 15:31 ET Nathan FLEMING IMG XR PROCEDURES Final Result * Diabetes Foot Exam (03/30/2024) Diabetes: Annual Foot Exam Abstracted Historical Provider HEALTH MAINTENANCE Final Result from Last 3 Months or Most Recently Relevant to Health Maintenance Insurance 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
[2025-04-23 14:14] LABS: OBS Int Ctl Valid YES; OBS1 POSITIVE (NEGATIVE)
--- NOTE | 2025-04-23 15:16 | PM.IMHP ---
History of Present Illness Date of Service: 04/23/25 Chief Complaint: Melena 84-year-old man presented to the ER with complaints of black stool which he reports started about a week ago. He also reported that he was seen by his PCP and Orthopedic surgery provider and was started on ibuprofen 600 mg and 800 mg for arthritis. He reported that he also started dose about a week ago. He reported taking 2 Tylenol night and one 600 mg ibuprofen at night as well. He denied any nausea, vomiting, diarrhea just black stools. He reported starting to feel weak and dizzy and had a fall going down his steps where he struck his head but did not experience loss of consciousness. Head CT was negative for any acute abnormality, chest x-ray negative for consolidation or effusion. Hemoglobin 6.1 and hematocrit 17.8, patient received 2 units of packed red blood cells while in the ER. He received a dose of IV Protonix in the ER. He will be admitted for further management and treatment of acute upper GI bleed. Review of Systems Review of Systems: Denies any recent fever chills or decrease in appetite respiratory denies any shortness of breath or cough cardiovascular denied chest pain gastrointestinal denies any dysphagia abdominal pain nausea vomiting or diarrhea genitourinary denies any dysuria frequency or hematuria musculoskeletal denies any joint pain or swelling neuropsych denies any weakness or seizures all other systems reviewed are negative [facility] Medical History (Updated 04/23/25 @ 16:20 by Margi Harrell NP) HTN (hypertension) Social History Alcohol intake: current Alcohol intake frequency: does not drink Patient Tobacco Use Status: Never used Tobacco Smoked in Last 30 Days: No Use of substances other than those prescribed or required for medical reasons: No Advance Directives: No Advance Directives Information Provided: No Do you have a plan to hurt others: No Plan Meds Allergies Allergy/AdvReac Type Severity Reaction Status Date / Time No Known Allergies Allergy Verified 04/23/25 12:24 Active Medications: Current Medications Acetaminophen (Acetaminophen 325 Mg Tablet) 650 mg PO Q6H PRN PRN Reason: Pain, Mild 1-3,fever,headache Calcium Carbonate (Calcium Carbonate 750 Mg Tab.Chew) 750 mg PO Q4H PRN PRN Reason: Heartburn Magnesium Hydroxide (Milk Of Magnesia 30 Ml Oral.Susp) 30 ml PO DAILY PRN PRN Reason: Constipation Melatonin (Melatonin 3 Mg Tablet) 6 mg PO BEDTIME PRN PRN Reason: Insomnia Ondansetron HCl (Ondansetron Hcl 4 Mg/2 Ml Vial) 4 mg IVPUSH Q8H PRN PRN Reason: Nausea and Vomiting Sodium Chloride (0.9 % Sodium Chloride Flush 3 Ml Syringe) [facility] ?Medication ?Instructions ?Recorded ?Confirmed ?Last Taken ?Type alfuzosin 10 mg tablet,extended 10 mg PO DAILY 04/23/25 Unknown History release 24 hr amlodipine 10 mg tablet 10 mg PO DAILY 04/23/25 Unknown History atorvastatin 20 mg tablet 20 mg PO DAILY 04/23/25 Unknown History ibuprofen 600 mg tablet 600 mg PO Q6H PRN Pain 04/23/25 Unknown History losartan 100 mg tablet 100 mg PO DAILY 04/23/25 Unknown History Physical Exam Vital Signs and Narrative: Vital Signs: Last Vital Signs Temp 97.9 F 04/23/25 12:20 Pulse 84 04/23/25 12:56 Resp 12 04/23/25 12:37 BP 123/42 L 04/23/25 12:56 Pulse Ox 99 04/23/25 12:37 O2 Del Method Room Air 04/23/25 12:37 BMI result Body Mass Index 30.7 Appearing in no acute distress head is normocephalic atraumatic eyes pupils are PERRLA sclera is anicteric mouth throat mucous membranes are intact and moist neck is supple no lymphadenopathy, no JVD noted lung sounds are clear to auscultation heart regular rate rhythm, clear S1, S2 positive bowel sounds, abdomen is soft, nontender neuro patient is alert x3, no focal deficits Results Labs 04/23/25 12:46 04/23/25 12:46 Labs: Laboratory Results - last 24 hr 04/23/25 04/23/25 04/23/25 12:46 14:06 14:08 MCV 92.2 MCH 31.6 MCHC 34.3 RDW 14.3 Plt Count 183 MPV 10.3 Immature Gran % (Auto) 1.4 H Neut % (Auto) 77.4 H Lymph % (Auto) 11.9 L [place] % (Auto) 9.0 Eos % (Auto) 0.1 Baso % (Auto) 0.2 Lymph # (Auto) 1.2 [place] # (Auto) 0.9 Eos # (Auto) 0.0 Baso # (Auto) 0.0 Abs Immat Gran (auto) 0.14 H Absolute Neuts (auto) 7.9 Absolute Nucleated RBC 0.000 Nucleated RBC % (auto) 0.0 Smear Tech's Comments VERIFIED Anion Gap 12 Estim Creat Clear Calc 81.3 Estimated GFR > 60 Random Glucose 122 H Calcium 8.5 Total Bilirubin 0.3 Direct Bilirubin 0.1 AST 21 ALT 17 Alkaline Phosphatase 42 Troponin I High Sens 35.0 Total Protein 5.1 L Albumin 3.3 L Stool Occult Blood POSITIVE Blood Type B Positive Antibody Screen NEGATIVE Crossmatch See Detail Assessment and Plan (1) Acute upper GI bleeding: Status: Acute Plan 84 year old man admitted after episodes of melena without any history of GI bleeding. Due to patient's history of arthritis he was recently prescribed ibuprofen, high dose, for pain. GI Bleed HH 6.1/17.8 stool occult positive 2 units PRBC ordered in ED GI consultation NPO after midnight check HH after tx PPI stop NSAIDS Hyponatremia mild monitor Hypertension low BP hold antihypertensives due to GI bleed to avoid hypotension Fall no injury or trauma oob with assist PT consult DVT prophylaxis with SCD boots due to anemia Full code Quality Stroke Does the patient have a stroke diagnosis?: No VTE Prior VTE?: No VTE Risk Level:: Medical - moderate - high VTE Device Contraindication: N/A - Device Ordered VTE Drug Contraindication: Treatment Not Indicated
--- NOTE | 2025-04-23 16:47 | PHA.MEDREC ---
Addendum entered by Nehal Montoya PharmD 04/23/25 17:17: [facility] REVIEWED. Patient takes acetaminophen 500 mg - 2 tabs prn (1000 mg). Original Note: Pharmacy Consult ? Medication Reconciliation Pharmacy has completed the medication reconciliation. Confirmed medication list with patient. Patient takes OTC vitamin D3, vitamin B12, and AREDS. Patient took OTC vitamins this morning with morning meds (04/23). Patient is currently taking acetaminophen 500 mg once a day as needed for pain at 20:00. Patient is currently taking ibuprofen 600 mg once a day as needed for pain at bedtime. Patient took acetaminophen and ibuprofen last night at times described.
--- NOTE | 2025-04-23 18:54 | PC.NURSE ---
this rn assumed care of pt, pt resting in stretcher, no acute distress noted. pt vss. Blood products running at this time, pt offers no complaints
[2025-04-23 21:30] LABS: Glucose, Whole Blood 164 mg/dL (60-115)
[2025-04-23 22:04] LABS: Hematocrit 23.0 % (42.0-52.0); Hemoglobin 8.0 g/dl (14.0-18.0)
[2025-04-23 23:19] LABS: Appearance Urine Clear; Glucose Urine UA Negative (Negative); PH 6.5 (5.0-9.0); Specific Gravity - Urine 1.015 (1.005-1.025); UMIC TRIGGER UACC YES
[2025-04-24] MEDS: 0.9 % Sodium Chloride Flush 3 ML SYRINGE IVFLUSH ×4 (00:40→22:49)
[2025-04-24 03:26] VITALS: BP 132/62; PULSE 68; RESP 18; TEMP 36.3; O2SAT 97
[2025-04-24 05:58] LABS: Hematocrit 22.7 % (42.0-52.0); Hemoglobin 7.7 g/dl (14.0-18.0); Mean Corpuscular HGB Conc 33.9 g/dl (31.0-36.0); Mean Corpuscular Hemoglobin 31.4 pg (27.0-33.0); Mean Corpuscular Volume 92.7 fL (80.0-98.0); NRBC Abs Auto 0.000 X10*3/uL (0.0-0.012); NRBC Pct Auto 0.0 /100WBC (0.0-0.2); Platelet Count 158 X10*3/uL (160-400); Red Blood Count 2.45 X10*6/uL (4.60-5.80); White Blood Count 8.7 X10*3/uL (4.8-10.8)
[2025-04-24 06:14] LABS: Anion Gap 9 (12-20); Blood Urea Nitrogen 15 mg/dL (9-16); Calcium 8.2 mg/dL (8.4-10.2); Carbon Dioxide 25 mmol/L (22-29); Chloride 103 mmol/L (96-108); Creatinine Clr Calc Pharmacy 88.0; Estimated Glomerular Filt Rate > 60; Potassium 4.0 mmol/L (3.3-5.1); Sodium 133 mmol/L (135-145)
--- NOTE | 2025-04-24 06:20 | PM.GICN ---
History of Present Illness Data of Consult Service Date: 04/24/25 Requesting physician: Margi Harrell Primary Care Provider: BERNADETTE Peacock HPI Reason for consult: GI bleed This is an 84-year-old gentleman with past medical history of hypertension, osteoarthritis, who presented to the hospital from home for weakness and shortness of breath and found to have anemia. History obtained from the patient, who reports that for the last 2-3 weeks, his right hip has been bothering him. He was started on ibuprofen and Tylenol scheduled by his PCP for pain management. A week ago, he started noticing the stools have become softer and darker in color. On the day of presentation, he was significantly lightheaded, specially on getting up, almost had a fall from the stairs. When he presented to the ER he was noted to have normal vital signs. Labs with hemoglobin of 6.1 with BUN of 27. He also had a CT head which did not show any acute hemorrhage. Gastroenterology has been consulted for question of upper GI bleed. Review of Systems Review of Systems: Yes all other systems are reviewed and are negative PMFSH Past Medical History Medical History (Updated 04/24/25 @ 13:29 by Sabrina Morales MD) HTN (hypertension) Social History Social History Household Members: Spouse Housing: House Do you presently have visiting nurse or other home services: No Alcohol intake: current Alcohol intake frequency: does not drink Patient Tobacco Use Status: Never used Tobacco Smoked in Last 30 Days: No Use of substances other than those prescribed or required for medical reasons: No Currently Displaying Signs/Symptoms of Drug Intoxication Withdrawal: No Have you been hit, kicked, punched, or otherwise hurt by someone within the past year? If so, by whom?: No Do you feel safe in your current relationship?: Yes Is there a partner from a previous relationship who is making you feel unsafe now?: No Are you made to feel afraid or neglected: No Advance Directives: No Advance Directives Information Provided: No Do you have a plan to hurt others: No Plan Recently lost weight without trying: No Eating poorly because of decreased appetite: No Meds Allergies Allergy/AdvReac Type Severity Reaction Status Date / Time No Known Allergies Allergy Verified 04/23/25 12:24 Active Medications: Current Medications Acetaminophen (Acetaminophen 325 Mg Tablet) 650 mg PO Q6H PRN PRN Reason: Pain, Mild 1-3,fever,headache Last Admin: 04/23/25 21:37 Dose: 650 mg Amlodipine Besylate (Amlodipine Besylate 10 Mg Tablet) 10 mg PO DAILY [facility]; Protocol Atorvastatin Calcium (Atorvastatin Calcium 20 Mg Tablet) 20 mg PO DAILY [facility] Calcium Carbonate (Calcium Carbonate 750 Mg Tab.Chew) 750 mg PO Q4H PRN PRN Reason: Heartburn Magnesium Hydroxide (Milk Of Magnesia 30 Ml Oral.Susp) 30 ml PO DAILY PRN PRN Reason: Constipation Melatonin (Melatonin 3 Mg Tablet) 6 mg PO BEDTIME PRN PRN Reason: Insomnia Omeprazole (Omeprazole 20 Mg Capsule.Dr) 20 mg PO BID@0630,1630 [facility] Last Admin: 04/24/25 06:15 Dose: 20 mg Ondansetron HCl (Ondansetron Hcl 4 Mg/2 Ml Vial) 4 mg IVPUSH Q8H PRN PRN Reason: Nausea and Vomiting Sodium Chloride (0.9 % Sodium Chloride Flush 3 Ml Syringe) 3 ml IVFLUSH QSHIFT [facility] Last Admin: 04/24/25 00:40 Dose: 3 ml Tamsulosin HCl (Tamsulosin Hcl 0.4 Mg Capsule) 0.4 mg PO DAILY [facility] Home Medications ?Medication ?Instructions ?Recorded ?Confirmed ?Last Taken ?Type acetaminophen 500 mg tablet 1,000 mg PO DAILY@1999 PRN Pain 04/23/25 04/23/25 04/22/25 History alfuzosin 10 mg tablet,extended 10 mg PO DAILY 04/23/25 04/23/25 04/23/25 History release 24 hr amlodipine 10 mg tablet 10 mg PO DAILY 04/23/25 04/23/25 04/23/25 History atorvastatin 20 mg tablet 20 mg PO DAILY 04/23/25 04/23/25 04/23/25 History cholecalciferol (vitamin D3) 25 25 mcg PO DAILY 04/23/25 04/23/25 04/23/25 History mcg (1,000 unit) tablet (Vitamin D3) cyanocobalamin (vitamin B-12) 500 500 mcg PO DAILY 04/23/25 04/23/25 04/23/25 History mcg tablet ibuprofen 600 mg tablet 600 mg PO BEDTIME PRN Pain 04/23/25 04/23/25 04/22/25 History losartan 100 mg tablet 100 mg PO DAILY 04/23/25 04/23/25 04/23/25 History vitamins A,C,X-dgim-sihyxa 2,148 1 tab PO BID 04/23/25 04/23/25 04/23/25 History mcg-113 mg-45 mg-17.4 mg tablet (PreserVision AREDS) Physical Exam Exam: Exam: Elderly gentleman Appears younger than stated age No acute distress Nonicteric No overt respiratory distress Abdomen soft, nontender, nondistended Alert and oriented x3, no focal deficits Vital Signs: Vital Signs: Last Vital Signs Temp 97.4 F 04/24/25 03:26 Pulse 68 04/24/25 03:26 Resp 18 04/24/25 03:26 BP 132/62 04/24/25 03:26 Pulse Ox 97 04/24/25 03:26 O2 Del Method Room Air 04/24/25 03:26 BMI result Body Mass Index 30.7 Results Labs 04/24/25 05:20 04/24/25 05:20 Labs: Short CBC 04/23/25 04/23/25 04/24/25 Range/Units 12:46 21:56 05:20 WBC 10.3 8.7 (4.8-10.8) X10*3/uL Hgb 6.1 L* 8.0 L D 7.7 L (14.0-18.0) g/dl Hct 17.8 L* 23.0 L D 22.7 L (42.0-52.0) % Plt Count 183 158 L (160-400) X10*3/uL BMP 04/23/25 04/24/25 12:46 05:20 Sodium 131 L 133 L Potassium 4.2 4.0 Chloride 99 103 Carbon Dioxide 24 25 BUN 27 H 15 Creatinine 0.79 0.73 Calcium 8.5 8.2 L Liver Function 04/23/25 Range/Units 12:46 Total Bilirubin 0.3 (0.0-1.0) mg/dL Direct Bilirubin 0.1 (0.0-0.5) mg/dL AST 21 (5-37) U/L ALT 17 (0-40) U/L Alkaline Phosphatase 42 (39-117) U/L Albumin 3.3 L (3.5-5.0) g/dL Urine 04/23/25 Range/Units 22:48 Urine Color Yellow Urine Appearance Clear Urine pH 6.5 (5.0-9.0) Ur Specific [place] 1.015 (1.005-1.025) Urine Protein Negative (Neg-Trace) mg/dL Urine Glucose (UA) Negative (Negative) mg/dL Assessment and Plan (1) Acute blood loss anemia (ABLA): Status: Acute (2) Acute upper GI bleeding: Status: Acute Plan Overall presentation consistent with upper GI bleed. Ddx include PUD, gastritis, duodenitis etc given heavy NSAID use. Plan: - Maintain x2 IV access at all times - PRBC transfusion for Hb < 7 - IV protonix BID - Keep NPO for egd today Thank you for allowing me to participate in his care. Please do not hesitate to reach out for any questions or concerns. Procedures Date of Service Date of Service: 04/24/25
[2025-04-24 07:22] VITALS: BP 132/61; PULSE 60; RESP 18; TEMP 36.3; O2SAT 97
--- NOTE | 2025-04-24 10:01 | HO.ANESPROP2 ---
Documented by User: Sarah Bolton NP 04/25/25 08:17 HPI - Anesthesia Eval Consult details Narrative: 84 yr old male for EGD Intermittent left sided chest pain for years per pt; none currently. 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 Lindo 12/2023; echo updated 12/2024 which is basically unchanged from prior in 2023 (*see below for details). Mild aortic stenosis: AV area 1.9 CM, AV mean gradient 13 mmHg [facility] Active Problems Active Problems: All Active Problems Acute upper GI bleeding (Acute) Past Medical History Medical History HTN (hypertension) Family History Family history of problems with anesthesia: No Surgical History History of Problems with Anesthesia: Yes Social History Social History Household Members: Spouse Housing: House Do you presently have visiting nurse or other home services: No Alcohol intake: current Alcohol intake frequency: does not drink Patient Tobacco Use Status: Never used Tobacco Smoked in Last 30 Days: No Use of substances other than those prescribed or required for medical reasons: No Currently Displaying Signs/Symptoms of Drug Intoxication Withdrawal: No Have you been hit, kicked, punched, or otherwise hurt by someone within the past year? If so, by whom?: No Do you feel safe in your current relationship?: Yes Is there a partner from a previous relationship who is making you feel unsafe now?: No Are you made to feel afraid or neglected: No Advance Directives: No Advance Directives Information Provided: No Do you have a plan to hurt others: No Plan Recently lost weight without trying: No Eating poorly because of decreased appetite: No service: Yes Meds Allergies Allergy/AdvReac Type Severity Reaction Status Date / Time No Known Allergies Allergy Verified 04/23/25 12:24 Active Medications: Current Medications Acetaminophen (Acetaminophen 325 Mg Tablet) 650 mg PO Q6H PRN PRN Reason: Pain, Mild 1-3,fever,headache Last Admin: 04/23/25 21:37 Dose: 650 mg Amlodipine Besylate (Amlodipine Besylate 10 Mg Tablet) 10 mg PO DAILY [facility]; Protocol Last Admin: 04/24/25 07:54 Dose: 10 mg Atorvastatin Calcium (Atorvastatin Calcium 20 Mg Tablet) 20 mg PO DAILY [facility] Last Admin: 04/24/25 07:54 Dose: 20 mg Calcium Carbonate (Calcium Carbonate 750 Mg Tab.Chew) 750 mg PO Q4H PRN PRN Reason: Heartburn Magnesium Hydroxide (Milk Of Magnesia 30 Ml Oral.Susp) 30 ml PO DAILY PRN PRN Reason: Constipation Melatonin (Melatonin 3 Mg Tablet) 6 mg PO BEDTIME PRN PRN Reason: Insomnia Omeprazole (Omeprazole 20 Mg Capsule.Dr) 20 mg PO BID@0630,1630 [facility] Last Admin: 04/24/25 06:15 Dose: 20 mg Ondansetron HCl (Ondansetron Hcl 4 Mg/2 Ml Vial) 4 mg IVPUSH Q8H PRN PRN Reason: Nausea and Vomiting Sodium Chloride (0.9 % Sodium Chloride Flush 3 Ml Syringe) 3 ml IVFLUSH QSHIFT COUNT [facility] Last Admin: 04/24/25 00:40 Dose: 3 ml Tamsulosin HCl (Tamsulosin Hcl 0.4 Mg Capsule) 0.4 mg PO DAILY [facility] Last Admin: 04/24/25 07:54 Dose: 0.4 mg Home Medications ?Medication ?Instructions ?Recorded ?Confirmed ?Last Taken ?Type acetaminophen 500 mg tablet 1,000 mg PO DAILY@1999 PRN Pain 04/23/25 04/23/25 04/22/25 History alfuzosin 10 mg tablet,extended 10 mg PO DAILY 04/23/25 04/23/25 04/23/25 History release 24 hr amlodipine 10 mg tablet 10 mg PO DAILY 04/23/25 04/23/25 04/23/25 History atorvastatin 20 mg tablet 20 mg PO DAILY 04/23/25 04/23/25 04/23/25 History cholecalciferol (vitamin D3) 25 25 mcg PO DAILY 04/23/25 04/23/25 04/23/25 History mcg (1,000 unit) tablet (Vitamin D3) cyanocobalamin (vitamin B-12) 500 500 mcg PO DAILY 04/23/25 04/23/25 04/23/25 History mcg tablet ibuprofen 600 mg tablet 600 mg PO BEDTIME PRN Pain 04/23/25 04/23/25 04/22/25 History losartan 100 mg tablet 100 mg PO DAILY 04/23/25 04/23/25 04/23/25 History vitamins A,C,H-olap-hcmdii 2,148 1 tab PO BID 04/23/25 04/23/25 04/23/25 History mcg-113 mg-45 mg-17.4 mg tablet (PreserVision AREDS) Exam Height,Weight and Vital Signs: Height 5 ft 10 in Weight 97 kg Last Vital Signs Temp 97.3 F 04/24/25 07:22 Pulse 60 04/24/25 07:22 Resp 18 04/24/25 07:22 BP 132/61 04/24/25 07:22 Pulse Ox 97 04/24/25 07:22 O2 Del Method Room Air 04/24/25 07:22 Pertinent Lab Results Pertinent Lab Results: Laboratory Tests 04/23/25 04/23/25 04/23/25 12:46 14:06 14:08 WBC 10.3 RBC 1.93 L Hgb 6.1 L* Hct 17.8 L* MCV 92.2 MCH 31.6 MCHC 34.3 RDW 14.3 Plt Count 183 MPV 10.3 Immature Gran % (Auto) 1.4 H Neut % (Auto) 77.4 H Lymph % (Auto) 11.9 L [place] % (Auto) 9.0 Eos % (Auto) 0.1 Baso % (Auto) 0.2 Lymph # (Auto) 1.2 [place] # (Auto) 0.9 Eos # (Auto) 0.0 Baso # (Auto) 0.0 Abs Immat Gran (auto) 0.14 H Absolute Neuts (auto) 7.9 Absolute Nucleated RBC 0.000 Nucleated RBC % (auto) 0.0 Smear Tech's Comments VERIFIED Smear Path Review SEE NOTE Sodium 131 L Potassium 4.2 Chloride 99 Carbon Dioxide 24 Anion Gap 12 BUN 27 H Creatinine 0.79 Estim Creat Clear Calc 81.3 Estimated GFR > 60 POC Glucose Random Glucose 122 H Calcium 8.5 Total Bilirubin 0.3 Direct Bilirubin 0.1 AST 21 ALT 17 Alkaline Phosphatase 42 Troponin I High Sens 35.0 Total Protein 5.1 L Albumin 3.3 L Urine Color Urine Appearance Urine pH Ur Specific [place] Urine Protein Urine Glucose (UA) Urine Ketones Urine Blood Urine Nitrite Ur Leukocyte Esterase Urine RBC Urine WBC Ur Squamous Epith Cells Urine Bacteria Hyaline Casts Stool Occult Blood POSITIVE Blood Type B Positive Antibody Screen NEGATIVE Crossmatch See Detail 04/23/25 04/23/25 04/23/25 21:27 21:56 22:48 WBC RBC Hgb 8.0 L D Hct 23.0 L D MCV MCH MCHC RDW Plt Count MPV Immature Gran % (Auto) Neut % (Auto) Lymph % (Auto) [place] % (Auto) Eos % (Auto) Baso % (Auto) Lymph # (Auto) [place] # (Auto) Eos # (Auto) Baso # (Auto) Abs Immat Gran (auto) Absolute Neuts (auto) Absolute Nucleated RBC Nucleated RBC % (auto) Smear Tech's Comments Smear Path Review Sodium Potassium Chloride Carbon Dioxide Anion Gap BUN Creatinine Estim Creat Clear Calc Estimated GFR POC Glucose 164 H Random Glucose Calcium Total Bilirubin Direct Bilirubin AST ALT Alkaline Phosphatase Troponin I High Sens Total Protein Albumin Urine Color Yellow Urine Appearance Clear Urine pH 6.5 Ur Specific [place] 1.015 Urine Protein Negative Urine Glucose (UA) Negative Urine Ketones Negative Urine Blood Negative Urine Nitrite Negative Ur Leukocyte Esterase Trace H Urine RBC 0-2 Urine WBC 0-5 Ur Squamous Epith Cells 0-2 Urine Bacteria None Seen Hyaline Casts 0-2 Stool Occult Blood Blood Type Antibody Screen Crossmatch 04/24/25 05:20 WBC 8.7 RBC 2.45 L D Hgb 7.7 L Hct 22.7 L MCV 92.7 MCH 31.4 MCHC 33.9 RDW 14.3 Plt Count 158 L MPV 9.9 Immature Gran % (Auto) Neut % (Auto) Lymph % (Auto) [place] % (Auto) Eos % (Auto) Baso % (Auto) Lymph # (Auto) [place] # (Auto) Eos # (Auto) Baso # (Auto) Abs Immat Gran (auto) Absolute Neuts (auto) Absolute Nucleated RBC 0.000 Nucleated RBC % (auto) 0.0 Smear Tech's Comments Smear Path Review Sodium 133 L Potassium 4.0 Chloride 103 Carbon Dioxide 25 Anion Gap 9 L BUN 15 Creatinine 0.73 Estim Creat Clear Calc 88.0 Estimated GFR > 60 POC Glucose Random Glucose 121 H Calcium 8.2 L Total Bilirubin Direct Bilirubin AST ALT Alkaline Phosphatase Troponin I High Sens Total Protein Albumin Urine Color Urine Appearance Urine pH Ur Specific [place] Urine Protein Urine Glucose (UA) Urine Ketones Urine Blood Urine Nitrite Ur Leukocyte Esterase Urine RBC Urine WBC Ur Squamous Epith Cells Urine Bacteria Hyaline Casts Stool Occult Blood Blood Type Antibody Screen Crossmatch Narrative Narrative: ECHO 12/2024 Left ventricle cavity size is normal. Mild concentric LV hypertrophy. There is mild global LV systolic dysfunction. EF is 45-50%. Right ventricle is mildly dilated. Right ventricular systolic function is normal. Aortic valve demonstrates mild stenosis. Trace regurgitation. Sinus of Valsalva is dilated 4.0 cm). Ascending aorta is dilated (4.2 cm). Bilatrial enlargement as below. Compared with prior echo from 11/29/24 findings are probably unchanged. Aortic stenosis severity was probably overestimated on previous study as LVOT diameter was under measured on that study. Would use LVOT diameter of 2.8 cm from here forward. Aortic valve area 1.9 cm, mean gradient 13 mm EKG 03/2025 Vent. Rate : 96 BPM Atrial Rate : 86 BPM P-R Int : 168 ms QRS Dur : 128 ms QT Int : 368 ms P-R-T Axes : 32 -14 114 degrees QTcB Int : 464 ms Atrial fibrillation Non-specific intra-ventricular conduction block T wave abnormality, consider lateral ischemia Abnormal ECG No previous ECGs available Airway Mallampati Class: III TM Dist: >3cm Neck ROM: Full Denture: Upper and Lower Heart: RRR Lungs: CTAB Assessment and Plan Final Anesthetic Review Family History of Problems with Anesthesia: No History of Problems with Anesthesia: Yes Documented by User: Jacquie Brumfield MD 04/25/25 11:48 PMFSH Past Medical History Medical History HTN (hypertension) Social History Social History Household Members: Spouse Housing: House Do you presently have visiting nurse or other home services: No Alcohol intake: current Alcohol intake frequency: does not drink Patient Tobacco Use Status: Never used Tobacco Smoked in Last 30 Days: No Use of substances other than those prescribed or required for medical reasons: No Currently Displaying Signs/Symptoms of Drug Intoxication Withdrawal: No Have you been hit, kicked, punched, or otherwise hurt by someone within the past year? If so, by whom?: No Do you feel safe in your current relationship?: Yes Is there a partner from a previous relationship who is making you feel unsafe now?: No Are you made to feel afraid or neglected: No Advance Directives: No Advance Directives Information Provided: No Do you have a plan to hurt others: No Plan Recently lost weight without trying: No Eating poorly because of decreased appetite: No service: Yes Meds Allergies Allergy/AdvReac Type Severity Reaction Status Date / Time No Known Allergies Allergy Verified 04/23/25 12:24 Home Medications ?Medication ?Instructions ?Recorded ?Confirmed ?Last Taken ?Type acetaminophen 500 mg tablet 1,000 mg PO DAILY@1999 PRN Pain 04/23/25 04/23/25 04/22/25 History alfuzosin 10 mg tablet,extended 10 mg PO DAILY 04/23/25 04/23/25 04/23/25 History release 24 hr amlodipine 10 mg tablet 10 mg PO DAILY 04/23/25 04/23/25 04/23/25 History atorvastatin 20 mg tablet 20 mg PO DAILY 04/23/25 04/23/25 04/23/25 History cholecalciferol (vitamin D3) 25 25 mcg PO DAILY 04/23/25 04/23/25 04/23/25 History mcg (1,000 unit) tablet (Vitamin D3) cyanocobalamin (vitamin B-12) 500 500 mcg PO DAILY 04/23/25 04/23/25 04/23/25 History mcg tablet ibuprofen 600 mg tablet 600 mg PO BEDTIME PRN Pain 04/23/25 04/23/25 04/22/25 History losartan 100 mg tablet 100 mg PO DAILY 04/23/25 04/23/25 04/23/25 History vitamins A,C,Q-ejxr-jrvklg 2,148 1 tab PO BID 04/23/25 04/23/25 04/23/25 History mcg-113 mg-45 mg-17.4 mg tablet (PreserVision AREDS) Assessment and Plan Assessment Anesthesia Assessment: Anesthesia Plan Discussed and Chart Reviewed Final Anesthetic Review NPO: Yes ASA Class: III Final Preanesthetic Review: No Changes in Pt Med Stat, Meds/Allgs Chart Reviewed, Consent Obtained/Reviewed and Anes Risks/Benef Reviewed Patient Risk: Intermediate Procedure Risk: Low Anesthetic Plan Anesthetic Plan: MAC: Disposition: Standard PACU
--- NOTE | 2025-04-24 15:01 | HO.PM.IMPN ---
Subjective Subjective Date of Service: 04/24/25 Interval History: tolerated transfusion, awaiting EGD No hematemesis, hematochezia, or melena. Review of Systems Review of Systems: Yes all other systems are reviewed and are negative Physical Exam Vital Signs: Vital Signs: Last Vital Signs Temp 97.3 F 04/24/25 07:22 Pulse 60 04/24/25 07:22 Resp 18 04/24/25 07:22 BP 132/61 04/24/25 07:22 Pulse Ox 97 04/24/25 07:22 O2 Del Method Room Air 04/24/25 07:22 BMI result Body Mass Index 30.7 Gen: in no acute distress HEENT: sclera anicteric, moist mucus membranes Neck: supple Lungs: clear to auscultation bilaterally Heart: regular rate and rhythm, no murmurs Abd: soft, non-tender, non-distended Ext: no edema Skin: warm/well-perfused Neuro: alert and oriented x3, no focal findings Psych: appropriate affect Objective Data Active Medications Acetaminophen (Acetaminophen 325 Mg Tablet) 650 mg PO Q6H PRN PRN Reason: Pain, Mild 1-3,fever,headache Last Admin: 04/23/25 21:37 Dose: 650 mg Documented By: MIGUEL Amlodipine Besylate (Amlodipine Besylate 10 Mg Tablet) 10 mg PO DAILY [facility]; Protocol Last Admin: 04/24/25 07:54 Dose: 10 mg Documented By: WOODROW Atorvastatin Calcium (Atorvastatin Calcium 20 Mg Tablet) 20 mg PO DAILY [facility] Last Admin: 04/24/25 07:54 Dose: 20 mg Documented By: WOODROW Calcium Carbonate (Calcium Carbonate 750 Mg Tab.Chew) 750 mg PO Q4H PRN PRN Reason: Heartburn Magnesium Hydroxide (Milk Of Magnesia 30 Ml Oral.Susp) 30 ml PO DAILY PRN PRN Reason: Constipation Melatonin (Melatonin 3 Mg Tablet) 6 mg PO BEDTIME PRN PRN Reason: Insomnia Omeprazole (Omeprazole 20 Mg Capsule.) 20 mg PO BID@0630,1630 [facility] Last Admin: 04/24/25 06:15 Dose: 20 mg Documented By: CHARLI Ondansetron HCl (Ondansetron Hcl 4 Mg/2 Ml Vial) 4 mg IVPUSH Q8H PRN PRN Reason: Nausea and Vomiting Sodium Chloride (0.9 % Sodium Chloride Flush 3 Ml Syringe) 3 ml IVFLUSH QSHIFT [facility] Last Admin: 04/24/25 11:21 Dose: 3 ml Documented By: WOODROW Tamsulosin HCl (Tamsulosin Hcl 0.4 Mg Capsule) 0.4 mg PO DAILY [facility] Last Admin: 04/24/25 07:54 Dose: 0.4 mg Documented By: WOODROW Labs 04/24/25 05:20 04/24/25 05:20 Labs: Laboratory Results - last 24 hr 04/23/25 04/23/25 04/23/25 12:46 14:06 21:27 MCV MCH MCHC RDW Plt Count MPV Absolute Nucleated RBC Nucleated RBC % (auto) Smear Path Review SEE NOTE Anion Gap Estim Creat Clear Calc Estimated GFR POC Glucose 164 H Random Glucose Calcium Urine Color Urine Appearance Urine pH Ur Specific [place] Urine Protein Urine Glucose (UA) Urine Ketones Urine Blood Urine Nitrite Ur Leukocyte Esterase Urine RBC Urine WBC Ur Squamous Epith Cells Urine Bacteria Hyaline Casts Blood Type B Positive Antibody Screen NEGATIVE Crossmatch See Detail 04/23/25 04/24/25 22:48 05:20 MCV 92.7 MCH 31.4 MCHC 33.9 RDW 14.3 Plt Count 158 L MPV 9.9 Absolute Nucleated RBC 0.000 Nucleated RBC % (auto) 0.0 Smear Path Review Anion Gap 9 L Estim Creat Clear Calc 88.0 Estimated GFR > 60 POC Glucose Random Glucose 121 H Calcium 8.2 L Urine Color Yellow Urine Appearance Clear Urine pH 6.5 Ur Specific [place] 1.015 Urine Protein Negative Urine Glucose (UA) Negative Urine Ketones Negative Urine Blood Negative Urine Nitrite Negative Ur Leukocyte Esterase Trace H Urine RBC 0-2 Urine WBC 0-5 Ur Squamous Epith Cells 0-2 Urine Bacteria None Seen Hyaline Casts 0-2 Blood Type Antibody Screen Crossmatch Assessment and Plan (1) Acute upper GI bleeding: Status: Acute Plan d2, 84yo M admitted with anemia with melena, suspected UGIB possibly from ibuprofen UGIB, melena - GI consulted, H+H improved after 2u pRBCs transfused in ED, continue PPI, no NSAIDs hypoNa - mild, monitor HTN - hold amlodipine + losartan due to GIB HLD: atorvastatin VTE ppx: SCDs, no heparin given bleeding dispo: eventual home In my clinical judgment, the patient requires continued inpatient hospitalization for the following reasons: EGD Total time managing care of this patient today: 35 minutes. Quality Stroke Does the patient have a stroke diagnosis?: No VTE Prior VTE?: No VTE Risk Level:: Medical - moderate - high VTE Device Contraindication: N/A - Device Ordered VTE Drug Contraindication: Treatment Not Indicated
[2025-04-24 15:11] VITALS: PULSE 77; RESP 18; TEMP 36.1; O2SAT 96
--- NOTE | 2025-04-24 16:21 | MHC.CM.PN ---
PT REPORTS HE LIVES WITH HIS AND IS INDEPENDENT WITH CARE HE HAS A CANE HE USES PRN AND NO SERVICES COPY OF HCP REQUESTED PCP: NICOLE MASON DELIVERED DCP: HOME [facility]
[2025-04-24 17:48] VITALS: BP 152/68; PULSE 67
[2025-04-24 19:23] VITALS: BP 136/60; PULSE 72; RESP 18; TEMP 36.1; O2SAT 98
[2025-04-25 03:03] VITALS: BP 148/69; PULSE 60; RESP 18; TEMP 36.1; O2SAT 96
[2025-04-25 07:05] LABS: Hematocrit 26.0 % (42.0-52.0); Hemoglobin 8.7 g/dl (14.0-18.0); Mean Corpuscular HGB Conc 33.5 g/dl (31.0-36.0); Mean Corpuscular Hemoglobin 31.1 pg (27.0-33.0); Mean Corpuscular Volume 92.9 fL (80.0-98.0); NRBC Abs Auto 0.000 X10*3/uL (0.0-0.012); NRBC Pct Auto 0.0 /100WBC (0.0-0.2); Platelet Count 165 X10*3/uL (160-400); Red Blood Count 2.80 X10*6/uL (4.60-5.80); White Blood Count 8.7 X10*3/uL (4.8-10.8)
[2025-04-25 07:21] LABS: Anion Gap 9 (12-20); Blood Urea Nitrogen 11 mg/dL (9-16); Calcium 8.4 mg/dL (8.4-10.2); Carbon Dioxide 25 mmol/L (22-29); Chloride 103 mmol/L (96-108); Creatinine Clr Calc Pharmacy 103.6; Estimated Glomerular Filt Rate > 60; Potassium 4.1 mmol/L (3.3-5.1); Sodium 133 mmol/L (135-145)
[2025-04-25 07:57] VITALS: BP 150/70; PULSE 67; RESP 18; TEMP 36.2; O2SAT 93
[2025-04-25] MEDS: 0.9 % Sodium Chloride Flush 3 ML SYRINGE IVFLUSH (09:20)
--- NOTE | 2025-04-25 11:59 | MHC.SHP ---
Pre-Procedural Eval Section A - 24 Hr Update-Section A only Date of Service: 04/25/25 The patient is an INPATIENT: Yes The patient has been examined within 24 hours of the surgical procedure. The History & Physical has been completed within 30 days and I have reviewed it.: Yes Section B - Complete if H&P > 30 days Chief Complaint: anemia GI bleed Allergies: Allergies Allergy/AdvReac Type Severity Reaction Status Date / Time No Known Allergies Allergy Verified 04/23/25 12:24 Plan Diagnosis/Plan: Unchanged I have reviewed the history and physical and performed a pertinent physical examination on my patient. No changes have occurred unless specified. Time Spent With Patient Time: Total time managing care of this patient today ____ minutes.
[2025-04-25 13:23] VITALS: BP 116/68; PULSE 78; RESP 16; TEMP 36.9; O2SAT 96
--- NOTE | 2025-04-25 13:58 | P.OP_ITS ---
Operative Note Operative Note Date of Service: 04/25/25 Narrative: Procedure: Esophagogastroduodenoscopy Endoscopist: Sabrina Morales MD Indication: UGIB Anesthesia Provider: David Morales CRNA Anesthesia Type: MAC ?? EGD Procedure:?? The procedure, indications, preparation and potential complications were reviewed with the patient, who indicated understanding and gave written informed consent to proceed. A physical exam was performed. The endoscope was introduced through the mouth, and advanced to the second part of duodenum. The mucosa was carefully examined on slow withdrawal of the endoscope. The patient tolerated the procedure well. There were no immediate complications.? ? EGD Findings:? * Esophagus:? Normal mucosa noted in the entire esophagus. The Z line was at 42 cm with the diaphragmatic hiatus at 46 cm. * Stomach:? Erythema and erosions noted in antrum. A few gastric polyps were noted in the fundus and body of the stomach. Retroflexion was performed in the cardia. Cold forceps biopsies were taken from body and antrum to r/o H Pylori. * Duodenum:? Diffuse edema and erythema of duodenal bulb with x2 white based ulcers, 3-4 mm and 11 mm. A resolution 360 ultra clip was applied to the larger ulcer bed to mitigate rebleeding risk. ? EGD Impressions:? * Normal esophagus * Hiatal hernia * Gastric polyps * Gastritis (biopsy) * Duodenal ulcers (endoclip) ?? Recommendations:?? * Follow biopsy results. * Pantoprazole 20 mg BID x 12 weeks and then once daily. * Avoid NSAIDs. Tylenol is ok. * If H pylori +, patient will be prescribed eradication therapy followed by test of cure. Above has been reviewed with the patient.
[2025-04-25 14:03] VITALS: BP 106/54; PULSE 79; RESP 16; TEMP 36.2; O2SAT 96
[2025-04-25 14:18] VITALS: BP 117/72; PULSE 104; RESP 20; TEMP 36.6; O2SAT 98
[2025-04-25 14:48] VITALS: BP 130/57; PULSE 87; RESP 16; TEMP 36; O2SAT 97
--- NOTE | 2025-04-25 14:52 | P.DS_ITS ---
DS: Providers Provider Date of Service: 04/25/25 Date of admission: 04/23/25 15:00 Date of discharge: 04/25/25 Primary care physician: BERNADETTE Peacock Consults: 04/23/25 15:08 Consult to Gastroenterology Routine Consulting Provider: [facility] Reason for consultation: anemia, GI bleed DS: Diagnosis Discharge Diagnosis (1) Acute upper GI bleeding: Status: Acute (2) Gastritis: Status: Acute (3) Acute blood loss anemia (ABLA): Status: Acute (4) Duodenal ulcer: Status: Acute DS: Summary Hospital Course Hospital Course: From the history and physical by the admitting hospitalist, Margi Harrell NP, 04/23/25: 84-year-old man presented to the ER with complaints of black stool which he reports started about a week ago. He also reported that he was seen by his PCP and Orthopedic surgery provider and was started on ibuprofen 600 mg and 800 mg for arthritis. He reported that he also started dose about a week ago. He reported taking 2 Tylenol night and one 600 mg ibuprofen at night as well. He denied any nausea, vomiting, diarrhea just black stools. He reported starting to feel weak and dizzy and had a fall going down his steps where he struck his head but did not experience loss of consciousness. Head CT was negative for any acute abnormality, chest x-ray negative for consolidation or effusion. Hemoglobin 6.1 and hematocrit 17.8, patient received 2 units of packed red blood cells while in the ER. He received a dose of IV Protonix in the ER. He will be admitted for further management and treatment of acute upper GI bleed. 84yo M admitted to the medical-surgical unit with anemia with melena, suspected UGIB possibly from ibuprofen. He was transfused 2 units of packed red blood cells with improvement. Gastroenterology was consulted. He underwent EGD by Dr Morales on 04/25/25, which showed: EGD Impressions: Normal esophagus Hiatal hernia Gastric polyps Gastritis (biopsy) Duodenal ulcers (endoclip) Recommendations: Follow biopsy results. Pantoprazole 20 mg BID x 12 weeks and then once daily. Avoid NSAIDs. Tylenol is ok. If H pylori +, patient will be prescribed eradication therapy followed by test of cure. He was discharged home and will follow up with Dr Morales in 1 week. Time Attestation Discharge Coordination Time (in mins): 35 Quality: Safe Use of Opioids Does Pt have an Active Cancer Diagnosis on the Problem List?: No Quality: Stroke Does the patient have a stroke diagnosis?: No Physical Exam Vital Signs: Vital Signs: Last Vital Signs Temp 96.8 F 04/25/25 14:48 Pulse 87 04/25/25 14:48 Resp 16 04/25/25 14:48 BP 130/57 L 04/25/25 14:48 Pulse Ox 97 04/25/25 14:48 O2 Del Method Room Air 04/25/25 14:48 BMI result Body Mass Index 30.7 Gen: in no acute distress HEENT: sclera anicteric, moist mucus membranes Neck: supple Lungs: clear to auscultation bilaterally Heart: regular rate and rhythm, no murmurs Abd: soft, non-tender, non-distended Ext: no edema Skin: warm/well-perfused Neuro: alert and oriented x3, no focal findings Psych: appropriate affect DS: Data Data Completed and Pending Completed studies during hospitalization [Text1]: Laboratory Results WBC 8.7 X10*3/uL (4.8-10.8) 04/25/25 06:36 RBC 2.80 X10*6/uL (4.60-5.80) L 04/25/25 06:36 Hgb 8.7 g/dl (14.0-18.0) L 04/25/25 06:36 Hct 26.0 % (42.0-52.0) L 04/25/25 06:36 MCV 92.9 fL (80.0-98.0) 04/25/25 06:36 MCH 31.1 pg (27.0-33.0) 04/25/25 06:36 MCHC 33.5 g/dl (31.0-36.0) 04/25/25 06:36 RDW 14.9 % (11.0-16.0) 04/25/25 06:36 Plt Count 165 X10*3/uL (160-400) 04/25/25 06:36 MPV 10.1 fL (9.4-12.4) 04/25/25 06:36 Immature Gran % (Auto) 1.4 % (0.0-0.4) H 04/23/25 12:46 Neut % (Auto) 77.4 % (45-73) H 04/23/25 12:46 Lymph % (Auto) 11.9 % (20-40) L 04/23/25 12:46 [place] % (Auto) 9.0 % (2-11) 04/23/25 12:46 Eos % (Auto) 0.1 % (0-4) 04/23/25 12:46 Baso % (Auto) 0.2 % (0-2) 04/23/25 12:46 Lymph # (Auto) 1.2 X10*3/uL (1.2-4.9) 04/23/25 12:46 [place] # (Auto) 0.9 X10*3/uL (0.1-1.2) 04/23/25 12:46 Eos # (Auto) 0.0 X10*3/uL (0.0-0.4) 04/23/25 12:46 Baso # (Auto) 0.0 X10*3/uL (0.0-0.2) 04/23/25 12:46 Abs Immat Gran (auto) 0.14 X10*3/uL (0.00-0.03) H 04/23/25 12:46 Absolute Neuts (auto) 7.9 x10*3/uL (2.0-8.3) 04/23/25 12:46 Absolute Nucleated RBC 0.000 X10*3/uL (0.0-0.012) 04/25/25 06:36 Nucleated RBC % (auto) 0.0 /100WBC (0.0-0.2) 04/25/25 06:36 Smear Tech's Comments VERIFIED 04/23/25 12:46 Smear Path Review SEE NOTE 04/23/25 12:46 Sodium 133 mmol/L (135-145) L 04/25/25 06:36 Potassium 4.1 mmol/L (3.3-5.1) 04/25/25 06:36 Chloride 103 mmol/L (96-108) 04/25/25 06:36 Carbon Dioxide 25 mmol/L (22-29) 04/25/25 06:36 Anion Gap 9 (12-20) L 04/25/25 06:36 BUN 11 mg/dL (9-16) 04/25/25 06:36 Creatinine 0.62 mg/dL (0.5-1.4) 04/25/25 06:36 Estim Creat Clear Calc 103.6 04/25/25 06:36 Estimated GFR > 60 04/25/25 06:36 POC Glucose 164 mg/dL (60-115) H 04/23/25 21:27 Random Glucose 121 mg/dL (60-115) H 04/25/25 06:36 Calcium 8.4 mg/dL (8.4-10.2) 04/25/25 06:36 Total Bilirubin 0.3 mg/dL (0.0-1.0) 04/23/25 12:46 Direct Bilirubin 0.1 mg/dL (0.0-0.5) 04/23/25 12:46 AST 21 U/L (5-37) 04/23/25 12:46 ALT 17 U/L (0-40) 04/23/25 12:46 Alkaline Phosphatase 42 U/L (39-117) 04/23/25 12:46 Troponin I High Sens 35.0 ng/L (<3.5-35.0) 04/23/25 12:46 Total Protein 5.1 g/dL (6.5-8.0) L 04/23/25 12:46 Albumin 3.3 g/dL (3.5-5.0) L 04/23/25 12:46 Urine Color Yellow 04/23/25 22:48 Urine Appearance Clear 04/23/25 22:48 Urine pH 6.5 (5.0-9.0) 04/23/25 22:48 Ur Specific [place] 1.015 (1.005-1.025) 04/23/25 22:48 Urine Protein Negative mg/dL (Neg-Trace) 04/23/25 22:48 Urine Glucose (UA) Negative mg/dL (Negative) 04/23/25 22:48 Urine Ketones Negative mg/dL (Negative) 04/23/25 22:48 Urine Blood Negative (Negative) 04/23/25 22:48 Urine Nitrite Negative (Negative) 04/23/25 22:48 Ur Leukocyte Esterase Trace (Negative) H 04/23/25 22:48 Urine RBC 0-2 /HPF (0-2) 04/23/25 22:48 Urine WBC 0-5 /HPF (0-5) 04/23/25 22:48 Ur Squamous Epith Cells 0-2 /HPF (0-2) 04/23/25 22:48 Urine Bacteria None Seen (None Seen) 04/23/25 22:48 Hyaline Casts 0-2 /LPF (0-2) 04/23/25 22:48 Stool Occult Blood POSITIVE (NEGATIVE) 04/23/25 14:08 Blood Type B Positive 04/23/25 14:06 Antibody Screen NEGATIVE 04/23/25 14:06 Crossmatch See Detail 04/23/25 14:06 Pending studies at discharge: Pending at discharge 04/25/25 13:57 Surgical [PTH] Routine Discharge Plan Discharge Anticipated Discharge Date/Time: 04/25/25 14:44 Patient Disposition: Home, Self-Care Discharge Diagnosis: gastritis, duodenal ulcers Referrals: Shree Urbina PA [Primary Care Provider, Internal Medicine] - 1 Week Sabrina Morales MD [Physician, Gastroenterology] - 1 Week Discharge Medications: New pantoprazole 20 mg tablet,delayed release (DR/EC) 20 mg PO BID Qty: 60 2RF Rx Instructions: 20 mg bid x 12 weeks then 20 mg once daily Continued atorvastatin 20 mg tablet 20 mg PO DAILY amlodipine 10 mg tablet 10 mg PO DAILY ibuprofen 600 mg tablet 600 mg PO BEDTIME PRN (Reason: Pain) losartan 100 mg tablet 100 mg PO DAILY alfuzosin 10 mg tablet extended release 24 hr 10 mg PO DAILY acetaminophen 500 mg Tablet 1,000 mg PO DAILY@2000 PRN (Reason: Pain) cholecalciferol (vitamin D3) [Vitamin D3] 25 mcg (1,000 unit) Tablet 25 mcg PO DAILY PreserVision AREDS 2,148 mcg-113 mg-45 mg-17.4mg Tablet 1 tab PO BID Rx Instructions: administer with AM and PM meals cyanocobalamin (vitamin B-12) 500 mcg Tablet 500 mcg PO DAILY Discharge Orders: Discharge Order (Routine); Ordered 04/25/25 Ordered By: Niurka Richards Diet: Advance to usual diet Activity on Discharge: As tolerated Stand Alone Forms: Patient Portal Discharge page Print Language: Chinese Care Plan Goals: prevention of bleeding Health Concerns: gastritis, duodenal ulcers Plan of Treatment: avoid NSAIDs like ibuprofen [Motrin/Advil] and naproxen [Aleve]; instead, take acetaminophen [Tylenol] take pantoprazole 20 mg twice daily for 12 weeks, then 20 mg once daily follow up with Gastroenterology [Dr Morales] in 1 week Please follow up with your primary care doctor within 1 week. Return to the hospital if you experience recurrent or worsening symptoms. Assessment: See Discharge Summary.
--- NOTE | 2025-04-25 15:05 | MHC.CM.PN ---
DP: PT HAS BEEN MEDICALLY CLEARED FOR DC HOME, NO SERVICES. PT HAS OWN RIDE HOME
== END 2025-04-25 15:49 | disposition home or self-care (01) | DRG 378 ==
LOC: HO.ED 15:02 → HO.EDOVER 15:15 → HO.S3 19:28
PROVIDERS: Hospitalist; Internal Medicine; Nurse Practitioner Family; Admitting Provider Nurse Practitioner Acute Care; Emergency Provider Emergency Medicine; PCP Physician Assistant Medical; Visit Provider Family Medicine
PROC: 0DJ08ZZ Inspection of Upper Intestinal Tract, Via Natural or Artificial Opening Endoscopic (ICD-10-PCS; CPT 43235; principal; 2025-04-25 13:50)
DX: K29.71 Gastritis, unspecified, with bleeding (principal); D62 Acute posthemorrhagic anemia; E87.1 Hypo-osmolality and hyponatremia; K26.4 Chronic or unspecified duodenal ulcer with hemorrhage; K31.7 Polyp of stomach and duodenum; K44.9 Diaphragmatic hernia without obstruction or gangrene; I10 Essential (primary) hypertension; E78.5 Hyperlipidemia, unspecified; T39.315A Adverse effect of propionic acid derivatives, initial encounter; W19.XXXA Unspecified fall, initial encounter; Z79.899 Other long term (current) drug therapy
CPT/HCPCS: 36415; 70450; 71046; 80048; 80076; 81001; 82272; 82947; 84484; 85014; 85018; 85025; 85027; 86850; 86900; 86901; 86923; 88305; 88313; 88342; 93005; 97116; 97161; 99285; J2003; J2470; J2704; P9016

== ENCOUNTER → 2025-04-23 12:25 | Outpatient (BNV) | payer OTHER, SELFPAY | PROVIDERS: Emergency Provider Emergency Medicine; PCP Physician Assistant Medical; Visit Provider Radiology Diagnostic Radiology | DX: R26.81 Unsteadiness on feet (principal); H53.8 Other visual disturbances; R42 Dizziness and giddiness | CPT/HCPCS: 70450; 71046 ==

== ENCOUNTER → 2025-04-23 12:25 | Outpatient (BNV) | payer OTHER, SELFPAY | PROVIDERS: Admitting Provider Nurse Practitioner Acute Care; Emergency Provider Emergency Medicine; PCP Physician Assistant Medical; Visit Provider Internal Medicine Cardiovascular Disease | DX: I48.91 Unspecified atrial fibrillation (principal); I45.4 Nonspecific intraventricular block | CPT/HCPCS: 93010 ==

== ENCOUNTER → 2025-04-23 15:00 | Outpatient (BNV) | payer OTHER, SELFPAY | PROVIDERS: Admitting Provider Nurse Practitioner Acute Care; Emergency Provider Emergency Medicine; PCP Physician Assistant Medical; Visit Provider Internal Medicine | DX: D62 Acute posthemorrhagic anemia (principal); K92.2 Gastrointestinal hemorrhage, unspecified | CPT/HCPCS: 99222 ==

== ENCOUNTER → 2025-04-23 15:00 | Outpatient (BNV) | payer OTHER, SELFPAY | PROVIDERS: Admitting Provider Nurse Practitioner Acute Care; Emergency Provider Emergency Medicine; PCP Physician Assistant Medical; Visit Provider Family Medicine | DX: K92.2 Gastrointestinal hemorrhage, unspecified (principal) | CPT/HCPCS: 99223; 99232 ==

== ENCOUNTER 2025-06-01 09:56 | Outpatient (REF) | payer OTHER, SELFPAY ==
--- OUTSIDE RECORDS SUMMARY | 2024-02-11 05:30 | XMS_ITS ---
Author Organization [facility] Address [address] [facility] [place] [address] Care Team Providers Care Automotive Glass Specialist Name Role Phone Shree Aguiar Primary Care Provider Unav joyable Giana Christina Unavailable [phone] Corey Riggs Unavailable [phone] Rs Medications Medication [...] other tobacco user? No Vital Signs Height 3tl72uf in 02/11/2024 Weight 205 lbs 02/11/2024 BMI 28.59 kg/m2 02/11/2024 Encounters Encounter Location Date Provider Diagnosis [facility] [address] [facility] [place] [address] 02/11/2024 Corey Riggs Plan Of Treatment No Information Progress Notes * Damien ADHIKARI SDOB:1940 (84 yo M)Acc No.[id number]:02/11/2024 Progress Notes Patient: Damien MERAZ Provider: Estefania Brown DPM :1940 A ge:83 Y S ex:Male Date:02/11/2024 [address] [facility], [facility] Pcp:BERNADETTE Peacock Subjective: * Chief Complaints: * [...] enies. C ardiovascular: Pacemaker d enies. M INTERNET SALES DIRECTOR d enies. W PW d enies. C [...] a day Objective: * Vitals: H t: 2gd71qb, Wt: 205, BMI: 28.59, Shoe size: 10.5, [...] 0 02/11/2024 Generated for Anika jefferson/Nirmal/Becky on: 08/01/2024 11:24 AM EST
--- OUTSIDE RECORDS SUMMARY | 2025-02-06 06:15 | XMS_ITS ---
Author Organization [facility] [place] Address [address] [facility] [place] [address] Care Team Providers Care Geriatric Physical Therapist Name Role Phone Shree Aguiar Primary Care Provider Unav ailable Giana Christina Unavailable [phone] Encounters Encounter Location Date Provider Diagnosis [facility] [address] [place] [address] 02/06/2025 Giana Christina Plan Of Treatment No Information Progress Notes * Damien ADHIKARI SDOB:1940 (84 yo M)Acc No.[id number]:02/06/2025 Progress Note Patient: Damien MERAZ Provider: Juanita Christina DPM :1940 A ge:84 Y S ex:Male Date:02/06/2025 Address:[address] [place] [address], [facility] [address] [facility] Pcp:BERNADETTE Peacock Subjective: * Chief Complaints: * * Medical History: Objective: * Vitals: Assessment: Plan: * Treatment: * Images: * The named appointment provid er may or may not be the originator of this progress note, and it is not deemed complete until electronically signed by the appointment provider. Sign off status: Pending * Provider: Juanita Christina DPM Date: 0 02/06/2025 Generated for Printi ng/Faemilyg/eTransmitting on: 1 08/01/2024 11:23 AM EST
[2025-06-01 10:40] LABS: Hematocrit 32.7 % (42.0-52.0); Hemoglobin 10.2 g/dl (14.0-18.0); Mean Corpuscular HGB Conc 31.2 g/dl (31.0-36.0); Mean Corpuscular Hemoglobin 28.4 pg (27.0-33.0); Mean Corpuscular Volume 91.1 fL (80.0-98.0); NRBC Abs Auto 0.000 X10*3/uL (0.0-0.012); NRBC Pct Auto 0.0 /100WBC (0.0-0.2); Platelet Count 275 X10*3/uL (160-400); Red Blood Count 3.59 X10*6/uL (4.60-5.80); White Blood Count 8.3 X10*3/uL (4.8-10.8)
--- OUTSIDE RECORDS SUMMARY | 2025-06-01 11:24 | XMS_ITS | Clinical Summary ---
Author Organization [facility] Address [address] [place] [address] Care Team Providers Care Chemical Operator Name Role Phone Shree Urbina PA-C Primary [...] age to complete this topic Care Teams Chemical Operator Relationship Specialty Start Date End Date Shree Urbina, PA-C PCP - General Medical Services 12/24/23
--- OUTSIDE RECORDS SUMMARY | 2025-06-01 11:24 | XMS_ITS | Patient Health Record ---
Author Organization [facility] Address [address] [place] [address] Care Team Providers Care Stock Worker Name Role Phone Shree Aguiar Primary Care Provider Unav ailable Giana Christina Unavailable [phone] Allergies No Known Allergies Results Component Value Reference Range Notes HEMOGLOBIN A1C (GLYCOHEMOGLO BIN) Reviewed date:11/07/2024 04:14:06 PM Interpretation: Performing Lab: Notes/Report: HEMOGLOBIN A1C % (HH) 6.1 Reason For Referral No Information Medications Medication SIG (Take, Route, Frequency, Duration) [...] Polyneuropathy due to diabetes mellitus type I (680197327) 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 confirmed Problem Polyneuropathy due to type 2 diabetes mellitus (763737007) Type 2 diabetes mellitus with diabetic polyneuropathy (E11.42) Active confirmed Vital Signs Blood pressure diastolic 60 mm Hg 11/07/2024 Height 7tt88hw in 11/07/2024 Blood pressure systolic 130 mm Hg 11/07/2024 Weight 199 lbs 11/07/2024 BMI 27.75 kg/m2 11/07/2024 Procedures Procedure Date Ordered Date Performed Result Body Sit e 43926-KQWAFWL NAIL, 6 OR MORE 06/27/2024 N/A 09982-IPOK SKIN LESIONS, 2 TO 4 06/27/2024 N/A 60297-MVQQCLH NAIL, 6 OR MORE 11/07/2024 N/A 88017-OUYB SKIN LESIONS, OVER 4 11/07/2024 N/A Encounters Encounter Location Date Provider Diagnosis [address] [address] 06/27/2024 Giana Christina Type 2 diabetes mellitus with diabetic polyneuropathy E11.42 and Tinea unguium B35.[address] [address] 11/07/2024 Giana Christina Type 2 diabetes mellitus with diabetic polyneuropathy E11.42 and Tinea unguium B35.[address] [address] 01/24/2025 Giana Christina Assessments Encounter Date Diagnosis (ICD Code) Assessment Notes Treatment Notes Treatment Clinical Notes Section Notes 06/27/2024 Type 2 diabetes mellitus with diabetic polyneuropathy (ICD-10 - E11.42) 06/27/2024 Tinea unguium (ICD-10 - B35.1) 11/07/2024 Type 2 diabetes mellitus with diabetic polyneuropathy (ICD-10 - E11.42) 11/07/2024 Tinea unguium (ICD-10 - B35.1) Plan Of Treatment Pending Test Test Name Order Date 66757-LKAFENY NAIL, 6 OR MORE 06/27/2024 24905-EJKDTDA NAIL, 6 OR MORE 11/07/2024 55272-XSUZ SKIN LESIONS, OVER 4 11/08/19 80595-JDRZ SKIN LESIONS, 2 TO 4 06/27/20 24 Insurance Providers Payer Name Payer Address Payer Phone Subscriber Number Group Number Insured Name Patient Relationship to Insured Coverage Start Date Coverage End Date [facility] [address] [place] [address] [id number] Damien Tapia Self - patient is the insured Medical (General) History Medical History History ICD Code Arthritis Back,Hip,and Knee pain Cataracts Diabetic High blood pressure Macular degeneration Chicken pox Surgical History Surgery Date(Month/Year) hammer toe rotator cuff tear repair 04/03 TURP (transurethral resection of the pro state) 01/02
--- OUTSIDE RECORDS SUMMARY | 2025-06-01 11:24 | XMS_ITS | Data Portability ---
Author Organization [place] [facility], [facility] Address [address] [address] Care Team Providers Care Vocational Nurse Name Role Phone NICOLE LIZ Referring Provider Assessment Encounter Date Assessment Date Assessment LastModified [...] mandibular mass x 3 months 2023 024 [facility], [address] [place], [address], 15:44:32 Medication Orders None recorded. Patient TargetsNo targets recorded. Patient Instructions Encounter Date Encounter Id Patient Instructions Last Modified By Organization Details Last Modified Time 02/02/2024 [id number] Differential diagnosis was reviewed with patient to [...] Organization Details Recorded Time Mass of neck 461790357 Active 2023 Nadia raya [place] - [facility] 4 10:05:51 Referred otalgia of right ear 981137752551053 0 Active 2023 [place] Chaidez [facility] 4 10:12:27 Disorder of jaw 00504735 Active 2023 Nadia raya [place] [facility] 4 13:46:49 Problem Notes None recorded. Medical [...] Updated DateTime 02/02/2024 180.34 cm 27.1 kg/m2 07824.72 g Criss Millerues [facility] 02/02/2024 09:24:43 Date Recorded Body height Body mass index (BMI) Body weight Provider Name and Address Organization Details Last Updated DateTime 03/03/2024 180.34 cm 27.1 kg/m2 12019.92 g Roselyn Lau [facility] 03/03/2024 13:04:07 Social History None recorded. Functional Status None recorded. Mental Status None recorded. Family History Nothing Reported. Medical History No medical history recorded. Past Encounters Encounter ID Performer Location Encounter Start Date Encounter Closed Date Diagnosis/Indication Diagnosis SNOMED-CT Code Diagnosis ICD10 Code Diagnosis IMO Codes Diagnosis Note [id number] CELINE GARCIA MD [facility] [address] [address] 02/02/2024 09:17:09 02/02/2024 09:49:15 Mass of neck 468106933 R22.1 Referred o talgia of right ear 8832025354 412839 H92.01 [id number] NADIA LAU PA-C [facility] [address] [address] 03/03/2024 12:55:51 03/03/2024 13:16:58 Disorder of jaw 61445091 M27.9 Health Concerns Section Related Observation LastModified by Organization Detai ls LastModified Time None Recorded Concern Status LastModified by Organization Details LastModified Time None Recorded Advance Directives Directive None Recorded Payers Insurance Date Sequence Insurance Name Policy Number Policy Acosta Covered Member ID Acosta Member ID Guarantor Name 03/03/2024 1 [facility] (POS) [id number] Damien Tapia [id number] Damien Tapia Notes Date Note Type Note [...] or benign in appearance. CELINE GARCIA MD [address] [place] [address],[address], [address], [facility] 02/02/2024 13:05:00 03/03/2024 text/html ROS as noted in the HPI 83 year old male presents to follow up on neck/jaw mass. Reports the inflammation has gone down almost all the way back to normal, and the pain has resolved. No dysphagia, hemoptysis, sore throat, nor hoarseness. No other masses in the neck. No fevers nor weight loss. JOHN MEYERS MD [address] [place] [address],[address], [address], [facility] 03/03/2024 16:29:19
--- OUTSIDE RECORDS SUMMARY | 2025-06-01 11:24 | XMS_ITS | Encounter Summary ---
Author Organization [facility] Address [address] [place] [address] Phone Care Team Providers Care Paleologist Name Role Phone Rod Ashley Primary Care Provider [phone] Encounter Details Date Type Department Care Team (Late st Contact Info) Description 02/15/2024 Documentation Only [facility], [address] [place] [address] [place], [place] [address] [place] [address] Social History Tobacco Use Types [...] on filedocumented in this encounter Care Teams Paleologist Relationship Specialty Start Date End Date Rod Ashley [address] [place] [address] PCP - General 02/15/24 documented as of this encounter
--- OUTSIDE RECORDS SUMMARY | 2025-06-01 11:24 | XMS_ITS | Clinical Summary ---
Author Organization [facility], Address [address] [place] [address] [place] [address] Phone Care Team Providers Care Corporate Travel Counselor Name Role Phone Rod Ashley Primary Care Provider [phone] Social History Tobacco Use Types Packs/Day Years [...] patient's age to complete this topic Insurance [employer] Plans Care Teams Corporate Travel Counselor Relationship Specialty Start Date End Date Rod Ashley [address] [place] [address] PCP - General 02/15/24
== END 2025-06-01 09:57 | disposition home or self-care (01) ==
LOC: HO.LAB 09:56
PROVIDERS: PCP Physician Assistant Medical; Visit Provider Internal Medicine
DX: K92.2 Gastrointestinal hemorrhage, unspecified (principal)
CPT/HCPCS: 36415; 85027

== ENCOUNTER 2025-07-15 14:06 | Inpatient (IN) | payer OTHER, SELFPAY ==
--- OUTSIDE RECORDS SUMMARY | 2024-02-11 05:30 | XMS_ITS ---
Author Organization [facility] Address [address] [place] [address] Care Team Providers Care Access Rn Name Role Phone Shree Aguiar Primary Care Provider Unav joyable Giana Christina Unavailable [phone] Corey iRggs Unavailable [phone] Rs Medications Medication SIG (Take, Route, Frequency, Duration) Notes Start Date End Date Status amLODIPine Besylate 10 MG 1 tablet Orall y Once a day Active Alfuzosin HCl ER 10 MG 1 tablet immediat hiram after the same meal Orally Once a day Active Losartan Potassium 100 MG 1 tablet Orall y Once a day Active Atorvastatin Calcium 10 MG 1 tablet Oral ly Once a day Active Social History Tobacco Use: Social History Observation Description Date Details (start date - stop date) Former Smoker NA - NA Tobacco Use/Smoking Question Answer Notes Are you a: former smoker Additional Findings: Tobacco Non-User Current no n-smoker Alcohol Screen Question Answer Notes Did you have a drink contain ing alcohol in the past year? Yes How often did you have a dri nk containing alcohol in the past year? 2 to 3 times a week (3 points) Points 3 Interpretation Negative Tobacco use other than smoking: Question Answer Notes Are you an other tobacco user? No Vital Signs Height [id number] in 02/11/2024 Weight 205 lbs 02/11/2024 BMI 28.59 kg/m2 02/11/2024 Encounters Encounter Location Date Provider Diagnosis [facility] [address] [place] [address] 02/11/2024 Corey Riggs Plan Of Treatment No Information Progress Notes * Damien ADHIKARI SDOB:1940 (84 yo M)Acc No.[id number]:02/11/2024 Progress Notes Patient: Damien MERAZ Provider: Estefania Brown DPM :1940 A ge:83 Y S ex:Male Date:02/11/2024 Address[address] [facility], [facility] Pcp:BERNADETTE Peacock Subjective: * Chief Complaints: * [address] Mcdonough. * ROS: G eneral/Constitutional: Nausea d enies. V omiting d enies. H dena Thirst d enies. L oss appetite d enies. C hills d enies. F atigue d enies.?Fever d enies. N ight Sweats d enies. U nexplained weight loss d enies. U nexplained weight gain d enies. H EENTM: Dentures d enies. D izziness d enies. G lasses/contacts a dmits. R etinopathy d enies. B lurred/double vision d enies. T MJ?denies. D ischarge/drainage d enies. I mplants d enies. S ore throat d enies. D ental implants d enies. H luis of hearing a dmits. D ifficulty chewing/swallowing/speaking d enies. N ose bleeds d enies. S ore mouth d enies. ? R espiratory: On Oxygen d enies. P neumonia/pleurisy d enies.?Bronchitis d enies. E mphysema d enies. C oughing d enies. C ough blood?denies. S hortness of breath d enies. W heezing d enies. C ardiovascular: Pacemaker d enies. M FLOOR COVERER APPRENTICE d enies. W PW d enies. C HF d enies. H eart attack d enies. S eptal defect d enies. R apid beat d enies. C hest pain d enies. A trial Fib. d enies. M urmur/Palpitations d enies. G astrointestinal: Hemorrhoids d enies. S tomach/Abdominal pain d enies. D ark blood stool d enies. I rritable bowel d enies. C onstipation d enies. D iarrhea d enies. H ematology: Swelling d enies. C lots d enies. V aricose Veins d enies. B ruising d enies. B leeding problem d enies. G enitourinary: Blood urine d enies. F requent/Painfu/urination/bladder control d enies. K idney stones d enies. I nfection (UTI) d enies. N ephropathy d enies. s ex trans dis (STD) d enies. P rostate d enies. M usculoskeletal: Hammertoes d enies. B unions a dmits. B ack Pain d enies. M uscle Cramps/ Resting d enies. M uscle cramps / walking d enies.?Generalized aches and pains a dmits. W eakness d enies. I nteg.: Wilson d enies. S cars d enies. C orns/calluses?admits. I ngrown nails d enies. P ainful nails d enies. O pen Sores d enies. R ashes d enies. N eurologic: Difficulty sleeping d enies. B rain disorder d enies. N umbness d enies. B alance trouble d enies. C onfusion d enies. F ainting/blackouts d enies. T ingling d enies. T remors d enies. * Medical History: A rthritis, Back,Hip,and Knee pain, Cataracts, Diabetic, High blood pressure, Macular degeneration, Chicken pox. * Surgical History: h ammer toe , rotator cuff tear repair 04/03, TURP (transurethral resection of the prostate) 01/02. * Family History: M other: , diagnosed with Diabetic - NIDDM, Unspecified essential hypertension. F ather: . * Social History: T obacco Use: T obacco Use/Smoking A re you a: f ormer smoker A dditional Findings: Tobacco Non-User C urrent non-smoker Tobacco use other than smoking A re you an other tobacco user? N o D rugs/Alcohol: D rugs H ave you used drugs other than those for medical reasons in the past 12 months? N o Alcohol Screen D id you have a drink containing alcohol in the past year? Y es H ow often did you have a drink containing alcohol in the past year? 2 to 3 times a week (3 points) P oints 3 I nterpretation N egative M iscellaneous: C affeine: yes, frequency:, 3-5 cups per day. Marital status: . Occupation: Retired. * Medications: T aking Alfuzosin HCl ER 10 MG Tablet Extended Release 24 Hour 1 tablet immediately after the same meal Orally Once a day , Taking amLODIPine Besylate 10 MG Tablet 1 tablet Orally Once a day , Taking Losartan Potassium 100 MG Tablet 1 tablet Orally Once a day , Taking Atorvastatin Calcium 10 MG Tablet 1 tablet Orally Once a day Objective: * Vitals: H t: 5gw10yu, Wt: 205, BMI: 28.59, Shoe size: 10.5, Ht-cm: 180.34 cm, Wt-k.99 kg. Assessment: Plan: * Treatment: * Images: * The named appointment provid er may or may not be the originator of this progress note, and it is not deemed complete until electronically signed by the appointment provider. Sign off status: Pending * Provider: Estefania Brown DPM Date: 0 02/11/2024 Generated for Anika jefferson/Nirmal/Becky on: 09/15/2024 04:16 PM EST
--- OUTSIDE RECORDS SUMMARY | 2025-02-06 06:15 | XMS_ITS ---
Author Organization [facility] [place] Address [address] [facility] [place] [address] Care Team Providers Care Soaker Meat Name Role Phone Shree Aguiar Primary Care Provider Unav ailable Giana Christina Unavailable [phone] Encounters Encounter Location Date Provider Diagnosis [facility] [address] [place] [address] 02/06/2025 Giana Christina Plan Of Treatment No Information Progress Notes * Damien ADHIKARI SDOB:1940 (84 yo M)Acc No.[id number]:02/06/2025 Progress Note Patient: Damien MERAZ Provider: Juanita Christina DPM :1940 A ge:84 Y S ex:Male Date:02/06/2025 Address:[address] [place] [address], [facility] [address] [facility] Pcp:BERNADETTE Peacock Subjective: * Chief Complaints: * [...] DPM Date: 0 02/06/2025 Generated for Printi ng/Faxing/eTransmitting on: 1 09/15/2024 04:16 PM EST
--- OUTSIDE RECORDS SUMMARY | 2025-07-14 08:45 | XMS_ITS | Encounter Summary ---
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 [employer]oth Name Role Phone Shree Urbina Primary Care Provider [phone] Encounter Details Date Type Department Care Team (Late st Contact Info) Description 07/14/2025 8:45 AM [facility] Lab Draw Station [address] [address] Duodenal ulcer; Anemia of chronic disease; Hypertrophy of prostate without urinary obstruction; Aneurysm of ascending aorta without rupture ([facility] V24); Dilated cardiomyopathy ([facility]/HCC V24, CMS/[facility] V28); HFrEF (heart failure with reduced ejection fraction) (CMS/[facility] V24, CMS/[facility] V28); Mixed hyperlipidemia; Essential hypertension; Controlled diabetes mellitus type II without complication (CMS/HCC V24, [facility] V28) Social History Tobacco Use Types Packs/Day Years [...] for your loved ones. 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 Author not have pain General Improving( 10:50 AM EDT) Yes Chung Ontiveros, PT PT LTG x 15 visits from eval 04/14/25 General Improving( 11:54 AM EDT) No Chung Ontiveros PT Note: [x] = goal MET [] = goal NOT MET [] Pt will have no difficulty with dressing LE [] Pt will wake 1 x/wk at most due to hip Sx documented as of this encounter Procedures Procedure Name Priority Date/Time Associated Diagnosis Comments THYROID STIMULATING HORMONE WITH REFLEX TO FREE T4 AND FREE T3 Routine 07/14/2025 8:58 AM EST Duodenal ulcer Anemia of chronic disease Hypertrophy of prostate without urinary obstruction Aneurysm of ascending aorta without rupture (CMS/HCC V24) Dilated cardiomyopathy (CMS/HCC V24, CMS/HCC V28) HFrEF (heart failure with reduced ejection fraction) (CMS/HCC V24, CMS/HCC V28) Mixed hyperlipidemia Essential hypertension Controlled diabetes mellitus type II without complication (CMS/HCC V24, CMS/HCC V28) LIPID PANEL WITH REFLEX TO DIRECT LDL Routine 07/14/2025 8:58 AM EST Duodenal ulcer Anemia of chronic disease Hypertrophy of prostate without urinary obstruction Aneurysm of ascending aorta without rupture (CMS/HCC V24) Dilated cardiomyopathy (CMS/HCC V24, CMS/HCC V28) HFrEF (heart failure with reduced ejection fraction) (CMS/HCC V24, CMS/HCC V28) Mixed hyperlipidemia Essential hypertension Controlled diabetes mellitus type II without complication (CMS/HCC V24, CMS/HCC V28) CBC WITH AUTO DIFFERENTIAL Routine 07/14/2025 8:58 AM EST Duodenal ulcer Anemia of chronic disease Hypertrophy of prostate without urinary obstruction Aneurysm of ascending aorta without rupture (CMS/HCC V24) Dilated cardiomyopathy (CMS/HCC V24, CMS/HCC V28) HFrEF (heart failure with reduced ejection fraction) (CMS/HCC V24, CMS/HCC V28) Mixed hyperlipidemia Essential hypertension Controlled diabetes mellitus type II without complication (CMS/HCC V24, CMS/HCC V28) IRON AND TIBC Routine 07/14/2025 8:58 AM EST Duodenal ulcer Anemia of chronic disease Hypertrophy of prostate without urinary obstruction Aneurysm of ascending aorta without rupture (CMS/HCC V24) Dilated cardiomyopathy (CMS/HCC V24, CMS/HCC V28) HFrEF (heart failure with reduced ejection fraction) (CMS/HCC V24, CMS/HCC V28) Mixed hyperlipidemia Essential hypertension Controlled diabetes mellitus type II without complication (CMS/HCC V24, CMS/HCC V28) MICROALBUMIN CREATININE URINE RATIO Routine 07/14/2025 8:58 AM EST Duodenal ulcer Anemia of chronic disease Hypertrophy of prostate without urinary obstruction Aneurysm of ascending aorta without rupture (CMS/HCC V24) Dilated cardiomyopathy (CMS/HCC V24, CMS/HCC V28) HFrEF (heart failure with reduced ejection fraction) (CMS/HCC V24, CMS/HCC V28) Mixed hyperlipidemia Essential hypertension Controlled diabetes mellitus type II without complication (CMS/HCC V24, CMS/HCC V28) CBC AND DIFFERENTIAL Routine 07/14/2025 8:58 AM EST Duodenal ulcer Anemia of chronic disease Hypertrophy of prostate without urinary obstruction Aneurysm of ascending aorta without rupture (CMS/HCC V24) Dilated cardiomyopathy (CMS/HCC V24, CMS/HCC V28) HFrEF (heart failure with reduced ejection fraction) (CMS/HCC V24, CMS/HCC V28) Mixed hyperlipidemia Essential hypertension Controlled diabetes mellitus type II without complication (CMS/HCC V24, CMS/HCC V28) HEMOGLOBIN A1C Routine 07/14/2025 8:58 AM EST Duodenal ulcer Anemia of chronic disease Hypertrophy of prostate without urinary obstruction Aneurysm of ascending aorta without rupture (CMS/HCC V24) Dilated cardiomyopathy (CMS/HCC V24, CMS/HCC V28) HFrEF (heart failure with reduced ejection fraction) (CMS/HCC V24, [facility] V28) Mixed hyperlipidemia Essential hypertension Controlled diabetes mellitus type II without complication ([facility] V24, [facility] V28) COMPREHENSIVE METABOLIC PANEL Routine 07/14/2025 8:58 AM EST Duodenal ulcer Anemia of chronic disease Hypertrophy of prostate without urinary obstruction Aneurysm of ascending aorta without rupture ([facility] V24) Dilated cardiomyopathy ([facility] V24, [facility] V28) HFrEF (heart failure with reduced ejection fraction) ([facility] V24, [facility] V28) Mixed hyperlipidemia Essential hypertension Controlled diabetes mellitus type II without complication ([facility] V24, [facility] V28) documented in this encounter Results * (ABNORMAL) CBC auto differential (07/14/2025 8:58 AM EST) [facility] WBC 8.6 4.8 - 10.8 K/mcL LAB HEMETOLOGY METHOD 07/14/2025 10:49 AM [facility] RBC 3.50(L) 4.50 - 5.50 M/mcL LAB HEMETOLOGY METHOD 07/14/2025 10:49 AM [facility] Hemoglobin 9.2(L) 13.5 - 17.5 g/dL LAB HEMETOLOGY METHOD 07/14/2025 10:49 AM [facility] Hematocrit 28.4(L) 42.0 - 54.0 % LAB HEMETOLOGY METHOD 07/14/2025 10:49 AM [facility] MCV 81.8 79.0 - 98.0 FL LAB HEMETOLOGY METHOD 07/14/2025 10:49 AM [facility] MCH 26.5(L) 27.0 - 32.0 pcg LAB HEMETOLOGY METHOD 07/14/2025 10:49 AM [facility] MCHC 32.4 32.0 - 37.0 g/dL LAB HEMETOLOGY METHOD 07/14/2025 10:49 AM [facility] RDW 13.9 11.0 - 15.0 % LAB HEMETOLOGY METHOD 07/14/2025 10:49 AM [facility] Platelets 284 130 - 400 K/mcL LAB HEMETOLOGY METHOD 07/14/2025 10:49 AM [facility] MPV 9.2 7.0 - 11.0 FL LAB HEMETOLOGY METHOD 07/14/2025 10:49 AM [facility] NRBC 0.0 <1.0 % LAB HEMETOLOGY METHOD 07/14/2025 10:49 AM [facility] NRBC Absolute 0.00 <0.10 K/mcL LAB HEMETOLOGY METHOD 07/14/2025 10:49 AM [facility] Neutrophils Relative 77.9 % LAB HEMETOLOGY METHOD 07/14/2025 10:49 AM [facility] Lymphocytes Relative 7.1 % LAB HEMETOLOGY METHOD 07/14/2025 10:49 AM [facility] Monocytes Relative 14.0 % LAB HEMETOLOGY METHOD 07/14/2025 10:49 AM [facility] Eosinophils Relative 0.2 % LAB HEMETOLOGY METHOD 07/14/2025 10:49 AM [facility] Basophils Relative 0.2 % LAB HEMETOLOGY METHOD 07/14/2025 10:49 AM [facility] Immature Granulocytes Relative 0.6 % LAB HEMETOLOGY METHOD 07/14/2025 10:49 AM [facility] Neutrophils Absolute 6.67 1.50 - 7.00 K/mcL LAB HEMETOLOGY METHOD 07/14/2025 10:49 AM [facility] Lymphocytes Absolute 0.61(L) 1.00 - 5.00 K/mcL LAB HEMETOLOGY METHOD 07/14/2025 10:49 AM [facility] Monocytes Absolute 1.20(H) 0.20 - 1.00 K/mcL LAB HEMETOLOGY METHOD 07/14/2025 10:49 AM EST [facility] Eosinophils Absolute 0.02 0.00 - 0.50 K/[facility] LAB HEMETOLOGY METHOD 07/14/2025 10:49 AM EST [facility] Basophils Absolute 0.02 0.00 - 0.20 K/[facility] LAB HEMETOLOGY METHOD 07/14/2025 10:49 AM EST [facility] Immature Granulocytes Absolute 0.05(H) 0.00 - 0.03 K/[facility] LAB HEMETOLOGY METHOD 07/14/2025 10:49 AM [facility] Blood Venous blood specimen / Unknown Venipuncture / Unknown 07/14/2025 8:58 AM EST 07/14/2025 8:58 AM EST Shree FLEMING LAB BLOOD ORDERABLES Zara pastrana Result [facility] [address] [place] [address], * Lipid panel with reflex to direct LDL (07/14/2025 8:58 AM EST) Cholesterol 107 0 - 200 mg/dL 07/14/2025 12:45 PM [facility] Triglycerides 46 0 - 150 mg/dL 07/14/2025 12:45 PM [facility] HDL 52 >=40 mg/dL 07/14/2025 12:45 PM [facility] LDL Calculated 46 0 - 100 mg/dL 07/14/2025 12:45 PM [facility] Comment:Estimated LDL is arlen culated using the Friedewald equation: Total cholesterol - HDL cholesterol - (Triglycerides/5) VLDL Cholesterol Arlen 9.2 mg/dL 07/14/2025 12:45 PM [facility] Non HDL Chol. (LDL+VLDL) 55 <145 mg/dL 07/14/2025 12:45 PM EST [facility] Chol/HDL Ratio 2.1 0.0 - 4.4 07/14/2025 12:45 PM [facility] Blood Venous blood specimen / Unknown Venipuncture / Unknown 07/14/2025 8:58 AM EST 07/14/2025 8:58 AM EST Shree FLEMING LAB BLOOD ORDERABLES Zara l Result Performing Organization Address City/[facility]/ZIP Co de Phone Number [facility] [address] [place] [address], [place] [phone] * (ABNORMAL) Microalbumin creatinine urine ratio (07/14/2025 8:58 AM EST) Creatinine, Urine 128.0 mg/dL 07/14/2025 11:11 AM [facility] Microalb, Ur 48.0(H) 0.0 - 29.0 mg/L 07/14/2025 11:11 AM [facility] Microalb/Creat Ratio 38(H) <30 mg/g creat 07/14/2025 11:11 AM [facility] Urine Urine specimen obtained by clean catch procedure / Unknown Non-blood Collection / Unknown 07/14/2025 8:58 AM EST 07/14/2025 8:58 AM EST Shree FLEMING LAB URINE ORDERABLES Zara l Result [facility] [address] [place] [address], [place] [phone] * (ABNORMAL) Comprehensive metabolic panel (07/14/2025 8:58 AM EST) Sodium 123(L) 133 - 145 mmol/L 07/14/2025 12:43 PM [facility] Potassium 4.8 3.5 - 5.5 mmol/L 07/14/2025 12:43 PM [facility] Chloride 88(L) 96 - 110 mmol/L 07/14/2025 12:43 PM [facility] CO2 26 21 - 32 mmol/L 07/14/2025 12:43 PM [facility] Anion Gap 9 3 - 11 07/14/2025 12:43 PM [facility] Glucose 127(H) 70 - 100 mg/dL 07/14/2025 12:43 PM [facility] BUN 12 5 - 25 mg/dL 07/14/2025 12:43 PM [facility] Creatinine 0.76 0.70 - 1.30 mg/dL 07/14/2025 12:43 PM [facility] eGFR 89 >=60 mL/min/1. 73m2 07/14/2025 12:43 PM [facility] Comment:Calculation based on the Chronic Kidney Disease Epidemiology Collaboration (CKD-EPI) equation refit without adjustment for race. BUN/Creatinine Ratio 15.8 07/14/2025 12:43 PM [facility] Calcium 8.9 8.5 - 10.5 mg/dL 07/14/2025 12:43 PM [facility] AST (SGOT) 20 10 - 42 unit/L 07/14/2025 12:43 PM [facility] ALT (SGPT) 25 10 - 60 unit/L 07/14/2025 12:43 PM [facility] Alkaline Phosphatase 100 42 - 121 unit/L 07/14/2025 12:43 PM [facility] Total Protein 6.2 6.0 - 8.0 g/dL 07/14/2025 12:43 PM [facility] Albumin 3.7 3.2 - 5.0 g/dL 07/14/2025 12:43 PM EST [facility] Total Bilirubin 0.6 0.0 - 1.4 mg/dL 07/14/2025 12:43 PM [facility] Blood Venous blood specimen / Unknown Venipuncture / Unknown 07/14/2025 8:58 AM EST 07/14/2025 8:58 AM EST Shree FLEMING LAB BLOOD ORDERABLES Zara l Result [facility] [address] [place] [address], [place] [phone] * (ABNORMAL) Hemoglobin A1c (07/14/2025 8:58 AM EST) Hemoglobin A1C 6.5(H) <6.5 % LAB CHEMISTRY METHOD 07/14/2025 12:27 PM [facility] Mean Bld Glu Estim. 140 mg/dL LAB CHEMISTRY METHOD 07/14/2025 12:27 PM [facility] Blood Venous blood specimen / Unknown Venipuncture / Unknown 07/14/2025 8:58 AM EST 07/14/2025 8:58 AM EST Shree FLEMING LAB BLOOD ORDERABLES Zara l Result [facility] [address] [place] [address], [place] [phone] * (ABNORMAL) Iron and TIBC (07/14/2025 8:58 AM EST) Iron 23(L) 50 - 160 mcg/dL 07/14/2025 12:43 PM [facility] TIBC 350 250 - 450 mcg/dL 07/14/2025 12:43 PM EST [facility] Iron Saturation 7(L) 20 - 50 % 12:43 PM EST [facility] Blood Venous blood specimen / Unknown Venipuncture / Unknown 07/14/2025 8:58 AM EST 07/14/2025 8:58 AM EST Shree FLEMING LAB BLOOD ORDERABLES Zara l Result Performing Organization Address City/[facility]/ZIP Co de Phone Number [facility] [address] [place] [address], [place] [phone] * Thyroid stimulating hormone with reflex to free t4 and free t3 (07/14/2025 8:58 AM EST) TSH 1.83 0.40 - 4.00 mcIU/mL 07/14/2025 12:34 PM EST [facility] Blood Venous blood specimen / Unknown Venipuncture / Unknown 07/14/2025 8:58 AM EST 07/14/2025 8:58 AM EST Shree FLEMING LAB BLOOD ORDERABLES Zara l Result Performing Organization Address [facility] Co de Phone Number [facility] [address] [place] [address], [place] [phone] documented in this encounter Visit Diagnoses Diagnosis Duodenal ulcer Anemia of chronic disease Anemia of other chronic disease Hypertrophy of prostate without urinary obstruction Unspecified hyperplasia of prostate without urinary obstruction and other lower urinary tract symptoms (LUTS) Aneurysm of ascending aorta without rupture ([facility]/HCC V24) Dilated cardiomyopathy (CMS/HCC V24, CMS/HCC V28) Other primary cardiomyopathies HFrEF (heart failure with reduced ejection fraction) (CMS/[facility] V24, [facility] V28) Mixed hyperlipidemia Essential hypertension Unspecified essential hypertension Controlled diabetes mellitus type II without complication (CMS/[facility] V24, [facility] V28) documented in this encounter Additional Health Concerns Assessment Noted Time PHQ-9 Depression Total Score: 0 10/13/19 25 8:18 AM EDT A fall risk assessment has been complete d for the patient 10/12/2024 8:19 AM EDT documented as of this encounter Care Teams K[employer] Relationship Specialty Start Date End Date Shree Urbina PA [address] [place] [address] PCP - General Internal Medicine 10/11/24 documented as of this encounter
--- NOTE | ~2025-07-15 | XR_ITS ---
CLINICAL HISTORY: SOB Chest Radiographs, 2 views Comparison: 04/23/25 Findings: No cardiomegaly. Normal mediastinal contours. No pneumothorax. Faint bilateral opacity which is most prominent centrally and at the lung bases. Small bilateral pleural effusions with a trace amount of fluid along major fissure. No acute findings in the upper abdomen. No acute fracture. Impression: Mild pulmonary edema. This document has been electronically signed by: Heather Robin MD on 07/15/2025 16:24:19
[2025-07-15 14:59] VITALS: BP 139/54; PULSE 81; RESP 18; TEMP 36.7; O2SAT 94; BMI 31.3
--- NOTE | 2025-07-15 15:01 | ED.SOB ---
HPI - SOB/Dyspnea General Chief Complaint: Dyspnea Stated Complaint: ? fluid built up, pcp concerned Time Seen by Provider: 07/15/25 16:03 History of Present Illness HPI Narrative: patient is 84 years old history of weight gain about 15-20 lb over 3 weeks. Feels very short of breath. Has dyspnea on exertion. Has orthopnea. Presented to the ED for further evaluation. There is no chest pain. There is no coughing or congestion no upper respiratory symptoms. There is no fever. 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 They EF was about 40%. It was done about 6 months ago. Also history of GI bleed. Patient had a previous history of being on ibuprofen. Had a GI bleed approximately 3 months ago. Related Data Home Medications ?Medication ?Instructions ?Recorded ?Confirmed acetaminophen 500 mg tablet 1,000 mg PO DAILY@1999 PRN Pain 04/23/25 07/15/25 alfuzosin 10 mg tablet,extended 10 mg PO DAILY 04/23/25 07/15/25 release 24 hr amlodipine 10 mg tablet 10 mg PO DAILY 04/23/25 07/15/25 atorvastatin 20 mg tablet 20 mg PO DAILY 04/23/25 07/15/25 cholecalciferol (vitamin D3) 25 25 mcg PO DAILY 04/23/25 07/15/25 mcg (1,000 unit) tablet (Vitamin D3) cyanocobalamin (vitamin B-12) 500 500 mcg PO DAILY 04/23/25 07/15/25 mcg tablet losartan 100 mg tablet 100 mg PO DAILY 04/23/25 07/15/25 vitamins A,C,U-enxa-slpboa 2,148 1 tab PO BID 04/23/25 07/15/25 mcg-113 mg-45 mg-17.4 mg tablet (PreserVision AREDS) pantoprazole 20 mg tablet,delayed 20 mg PO BID@0630,1630 07/15/25 07/15/25 release Allergies Allergy/AdvReac Type Severity Reaction Status Date / Time No Known Allergies Allergy Verified 07/15/25 15:03 Review of Systems Review of Systems: Positive shortness of breath. Positive dyspnea on exertion. Positive orthopnea Yes all other systems are reviewed and are negative PMFSH Past Medical History Attestation statement: The following information was validated with the patient. Medical History Sick sinus syndrome Atrial fibrillation Cardiomyopathy H/O echocardiogram Diabetes Bilateral cataracts Osteoarthritis HTN (hypertension) Surgical History S/P TURP (status post transurethral resection of prostate) H/O colonoscopy H/O shoulder surgery Social History Social History Household Members: Spouse Housing: House Do you presently have visiting nurse or other home services: No Alcohol intake: current Alcohol intake frequency: does not drink Patient Tobacco Use Status: Former Tobacco user Tobacco use type: Cigarette Years Smoked: 15 Smoked in Last 30 Days: No Use of substances other than those prescribed or required for medical reasons: No Have you been hit, kicked, punched, or otherwise hurt by someone within the past year? If so, by whom?: No Do you feel safe in your current relationship?: No Current Relationship Is there a partner from a previous relationship who is making you feel unsafe now?: No Are you made to feel afraid or neglected: No Hindu Healthcare Practices: Latter-Day/Restorationist Advance Directives: No Advance Directives Information Provided: No Do you have a plan to hurt others: No Plan Recently lost weight without trying: No Eating poorly because of decreased appetite: No Nutrition Risks: No Nutritional Risk service: Yes Physical Exam Exam: Exam: Appearance: Alert. Oriented X3. No acute distress. Eyes: Pupils equal, round and reactive to light. ENT: Pharynx normal. Neck: Normal inspection. Neck supple. No lymph nodes noted. No crepitus CVS: Normal heart rate and rhythm. Pulses normal. Normal S1 and S2 . Positive systolic murmur 2/6. Respiratory: No respiratory distress. Breath sounds normal. No Wheezing. positive crackles at the bases Abdomen: Soft and nontender. No rigidity. No distention. good BS x4 Skin: Skin warm and dry. Normal skin color. Normal skin turgor. Extremities: No lower extremity edema. Neurovascular intact to all extremities. No Lacerations. Positive bilateral lower extremity edema 2+. Neuro: Oriented X 3. No motor deficit. No sensory deficit. Moving all extermities. No slurred speech Vital Signs: Vital Signs: Last Vital Signs Temp 97.9 F 07/15/25 16:56 Pulse 88 07/15/25 19:10 Resp 20 07/15/25 19:10 BP 123/65 07/15/25 19:10 Pulse Ox 92 07/15/25 19:10 O2 Del Method Nasal Cannula 07/15/25 19:10 O2 Flow Rate 2 07/15/25 19:10 BMI result Body Mass Index 31.3 Course Course Course Narrative: this is a rapid medical exam. Defer additional HPI, ROS and PE to primary provider Mara Richards [employer] 07/15 1503 84-year-old male with a history of diabetes, hypertension, hyperlipidemia here with SOB, weight gain, fatigue. Will obtain labs, EKG, CXR VSS Medications Administered Generic Name Dose Route Start Last Admin Trade Name Freq PRN Reason Stop Dose Admin Heparin Sodium (Porcine) 5,000 unit 07/15/25 18:30 07/15/25 19:16 Heparin Sodium,Porcine 5,000 Unit/Ml Vial SUBCUT 5,000 unit Q12H RAPHAEL Administration Discontinued Medications Generic Name Dose Route Start Last Admin Trade Name Freq PRN Reason Stop Dose Admin Furosemide 40 mg 07/15/25 16:45 07/15/25 17:07 Furosemide 40 Mg/4 Ml Vial IVPUSH 07/15/25 16:46 40 mg ONCE ONE Administration Protocol Furosemide 20 mg 07/15/25 18:29 07/15/25 19:16 Furosemide 20 Mg/2 Ml Vial IVPUSH 07/15/25 18:30 20 mg ONCE ONE Administration Protocol Medical Decision Making Medical Decision Making MDM Narrative: positive 15-20 lb weight gain. Positive shortness of breath. O2 sat is 94% but when patient ambulates he gets very short of breath chest x-ray by my interpretation shows congestive heart failure. BNP was 2000 consistent with congestive heart failure. Patient is hemoglobin is 9.3 this is approximately baseline for him. Additional COVID flu RSV was sent. Patient's sodium is 123 likely from the congestive heart failure. Not on hydrochlorothiazide currently. Not on any water pill currently. Started patient on dose of Lasix. Case was consulted with the hospitalist team. Will require admission for further evaluation. Differential Diagnosis Differential Diagnoses: The differential diagnosis associated with the presentation includes Congestive heart failure hyponatremia electrolyte disturbance pneumonia Admission/Observation Consideration of admission/observation: Escalation of care including admission/observation considered Consult Healthcare Provider Management of the patient was discussed with: Hospitalist Lab Data MDM Lab Attestation statement: I reviewed the patient's lab results. 07/15/25 15:20 07/15/25 15:20 Labs: Lab Results 07/15/25 Range/Units 15:20 WBC 10.5 (4.8-10.8) X10*3/uL RBC 3.50 L (4.60-5.80) X10*6/uL Hgb 9.3 L (14.0-18.0) g/dl Hct 28.3 L (42.0-52.0) % MCV 80.9 (80.0-98.0) fL MCH 26.6 L (27.0-33.0) pg MCHC 32.9 (31.0-36.0) g/dl RDW 14.1 (11.0-16.0) % Plt Count 280 (160-400) X10*3/uL MPV 9.4 (9.4-12.4) fL Immature Gran % (Auto) 0.9 H (0.0-0.4) % Neut % (Auto) 77.9 H (45-73) % Lymph % (Auto) 6.6 L (20-40) % [place] % (Auto) 13.9 H (2-11) % Eos % (Auto) 0.3 (0-4) % Baso % (Auto) 0.4 (0-2) % Lymph # (Auto) 0.7 L (1.2-4.9) X10*3/uL [place] # (Auto) 1.5 H (0.1-1.2) X10*3/uL Eos # (Auto) 0.0 (0.0-0.4) X10*3/uL Baso # (Auto) 0.0 (0.0-0.2) X10*3/uL Abs Immat Gran (auto) 0.09 H (0.00-0.03) X10*3/uL Absolute Neuts (auto) 8.2 (2.0-8.3) x10*3/uL Absolute Nucleated RBC 0.000 (0.0-0.012) X10*3/uL Nucleated RBC % (auto) 0.0 (0.0-0.2) /100WBC Sodium 123 L (135-145) mmol/L Potassium 4.7 (3.3-5.1) mmol/L Chloride 92 L (96-108) mmol/L Carbon Dioxide 21 L (22-29) mmol/L Anion Gap 15 (12-20) BUN 14 (9-16) mg/dL Creatinine 0.76 (0.5-1.4) mg/dL Estim Creat Clear Calc 87.9 Estimated GFR > 60 Random Glucose 144 H (60-115) mg/dL Calcium 9.2 D (8.4-10.2) mg/dL Total Bilirubin 0.5 (0.0-1.0) mg/dL Direct Bilirubin 0.2 (0.0-0.5) mg/dL AST 28 (5-37) U/L ALT 26 (0-40) U/L Alkaline Phosphatase 99 (39-117) U/L Troponin I High Sens 15.9 D (<3.5-35.0) ng/L NT-Pro-B Natriuret Pep 2062.5 H (<300) pg/mL Total Protein 6.6 (6.5-8.0) g/dL Albumin 3.9 (3.5-5.0) g/dL Independent Interpretation I performed an independent interpretation of an: EKG ( sinus heart rate is 70 AL is prolonged consistent with a first-degree block. QRS is wide. This is old. No acute changes.) and Plain X-Ray ( Congestive heart failure) Radiology Impression Discussion of test interpretation with radiology: I have reviewed the radiologist's reading. Independent Historian Clinical information obtained from an independent historian. History obtained from or confirmed by: Other ( additional history obtained through patient's family) External Record Review External record reviewed: Inpatient record Chronic Conditions history of GI bleed Social Determinants Patient?s care significantly limited by Social Determinants of Health including: Problems related to primary support group Discharge Plan Discharge Clinical Impression: Acute hyponatremia, Congestive heart failure Patient Disposition: Admitted As Inpatient Interventions: Admission Worksheet (ED) Last Done: 07/15/25 17:32 Discharge Date/Time: 07/15/25 20:26
--- NOTE | 2025-07-15 15:03 | ECG_ITS ---
Test Reason : SOB Blood Pressure : */* mmHG Vent. Rate : 79 BPM Atrial Rate : 79 BPM P-R Int : 194 ms QRS Dur : 126 ms QT Int : 368 ms P-R-T Axes : 71 -27 105 degrees QTcB Int : 421 ms Sinus rhythm with Premature atrial complexes Left bundle branch block Abnormal ECG When compared with ECG of 23-Apr-2025 12:43, No significant changes seen Referred By: Mara Richards Electronically Signed By: Mirza Girard
[2025-07-15 15:33] LABS: MANUAL DIFF FLAG NO
[2025-07-15 15:38] LABS: Hematocrit 28.3 % (42.0-52.0); Hemoglobin 9.3 g/dl (14.0-18.0); Imm Gran Abs Auto 0.09 X10*3/uL (0.00-0.03); Imm Gran Pct Auto 0.9 % (0.0-0.4); Lymphocytes Absolute Auto 0.7 X10*3/uL (1.2-4.9); Mean Corpuscular HGB Conc 32.9 g/dl (31.0-36.0); Mean Corpuscular Hemoglobin 26.6 pg (27.0-33.0); Mean Corpuscular Volume 80.9 fL (80.0-98.0); NRBC Abs Auto 0.000 X10*3/uL (0.0-0.012); NRBC Pct Auto 0.0 /100WBC (0.0-0.2); Platelet Count 280 X10*3/uL (160-400); Red Blood Count 3.50 X10*6/uL (4.60-5.80); White Blood Count 10.5 X10*3/uL (4.8-10.8)
[2025-07-15 16:00] LABS: Alanine Aminotransferase 26 U/L (0-40); Albumin Level 3.9 g/dL (3.5-5.0); Alkaline Phosphatase 99 U/L (39-117); Anion Gap 15 (12-20); Aspartate Amino Transferase 28 U/L (5-37); Blood Urea Nitrogen 14 mg/dL (9-16); Calcium 9.2 mg/dL (8.4-10.2); Carbon Dioxide 21 mmol/L (22-29); Chloride 92 mmol/L (96-108); Creatinine Clr Calc Pharmacy 87.9; Estimated Glomerular Filt Rate > 60; Potassium 4.7 mmol/L (3.3-5.1); Sodium 123 mmol/L (135-145); Total Protein 6.6 g/dL (6.5-8.0)
[2025-07-15 16:03] LABS: Troponin-I High Sensitivity 15.9 ng/L (<3.5-35.0)
--- OUTSIDE RECORDS SUMMARY | 2025-07-15 16:16 | XMS_ITS | Clinical Summary ---
Author Organization [facility] Address [address] [place] [address] Phone Care Team Providers Care Community Aide Name Role Phone Shree Urbina Primary Care Provider [phone] Allergies No known active allergies Medications cyanocobalamin (VITAMIN B-12) 100 mcg tablet Take 1 tablet (100 mcg total) by mouth 1 (one) time each day. Active CHOLECALCIFEROL , VITAMIN D3, ORAL Take by mouth. Activ e amLODIPine (NORVASC) 10 mg tablet Take 1 tablet (10 mg total) by mouth 1 (one) time each day. 90 tablet 2 5 Active losartan (COZAAR) 100 mg tablet Take 1 tablet (100 mg total) by mouth 1 (one) time each day. 90 tablet 2 5 Active atorvastatin (LIPITOR) 20 mg tablet TAKE 1 TABLET BY MOUTH ONCE A DAY 90 tablet 2 5 Active acetaminophen (TYLENOL) 500 mg tablet Take 2 tablets (1,000 mg total) by mouth every 6 (six) hours if needed for mild pain. Active pantoprazole (PROTONIX) 20 mg EC tablet TAKE 1 TABLET BY MOUTH TWICE A DAY FOR 12 WEEKS THEN TAKE 1 TABLET BY MOUTH EVERY DAY 5 Active lidocaine (LIDODERM) 5 % patch Apply 1 patch topically 1 (one) time each day. Apply to painful area 12 hours per day, remove for 12 hours. 30 each 2 5 Active alfuzosin (UROXATRAL) 10 mg 24 hr tablet TAKE 1 TABLET BY MOUTH ONCE A DAY 90 tablet 1 Active Hospital, Clinic, or Other Facility Administered Medication [...] hypertension 40 mg IAtc Once 10/12/2024 Active Active Problems Problem Noted Date Diagnosed Date Duodenal ulcer 06/14/2025 Trigger index finger 12/09/2024 Trigger finger of right thumb 12/09/2024 Anemia of chronic disease 04/12/2024 Aneurysm of ascending aorta without rupture 03/2023 Overview (07/04/2024): Last Assessment & Plan: Most recent echocardiogram completed 11/29/2022 with stable dilatation. Will continue to monitor with serial imaging. Dizziness 12/23/2022 Sick sinus syndrome 12/23/2022 Overview (07/04/2024): Last Assessment & Plan: [...] readdress this. Thoracic aortic aneurysm without rupture 022 Hearing loss 10/28/2018 Overview (07/04/2024): Has hearing loss HFrEF (heart failure with reduced ejection fract ion) 10/05/2018 Dilated cardiomyopathy 03/26/2016 Overview (07/04/2024): Last Assessment & Plan: [...] 06/07/2014 Controlled diabetes mellitus type II without com plication 06/02/2013 Left shoulder pain 09/23/2012 Essential hypertension [...] needed; no further changes at this time. Resolved Problems Problem Noted Date Diagnosed Date Resolved Date Hyperlipidemia 04/21/2016 05/17/2025 Encounters Date Type Department Care Team Description 07/14/2025 8:45 AM EST Lab Draw [address] Duodenal ulcer; Anemia of chronic disease; Hypertrophy of prostate without urinary obstruction; Aneurysm of ascending aorta without rupture (CMS/HCC V24); Dilated cardiomyopathy (CMS/HCC V24, CMS/HCC V28); HFrEF (heart failure with reduced ejection fraction) (CMS/HCC V24, CMS/HCC V28); Mixed hyperlipidemia; Essential hypertension; Controlled diabetes mellitus type II without complication (CMS/HCC V24, CMS/HCC V28) 07/14/2025 Results Follow-Up Adult Medicine [address] [phone] Shree Urbina PA 06/14/2025 9:00 AM EST Office Visit Adult Medicine [address] [phone] Shree Urbina PA Controlled diabetes mellitus type II without complication (CMS/HCC V24, CMS/HCC V28) (Primary Dx); Duodenal ulcer; Anemia of chronic disease; Hypertrophy of prostate without urinary obstruction; Aneurysm of ascending aorta without rupture (CMS/HCC V24); Dilated cardiomyopathy (CMS/HCC V24, CMS/HCC V28); HFrEF (heart failure with reduced ejection fraction) (CMS/HCC V24, CMS/HCC V28); Mixed hyperlipidemia; Essential hypertension 06/09/2025 11:15 AM EST Treatment Outpatient [address] [phone] Keira Dinh, AMMONIA TECHNICIAN Hip pain, unspecified laterality (Primary Dx); Primary osteoarthritis of right hip 06/01/2025 2:30 PM EST Procedure visit Orthopedic Surgery [facility] [address] [place] [phone] Faye Solo MD Primary osteoarthritis of right hip (Primary Dx); Bilateral shoulder pain, unspecified chronicity 05/31/2025 9:45 AM EST Lab Draw Station [address] Anemia, unspecified type; Duodenal ulcer; HFrEF (heart failure with reduced ejection fraction) (CMS/HCC V24, CMS/HCC V28) 05/31/2025 Results Follow-Up Adult [address] [phone] Rod Ashley MD 05/31/2025 Results Follow-Up Adult [address] [phone] Shree Urbina, BERNADETTE 05/29/2025 12:00 PM EST Treatment Outpatient [address] [phone] Shree Mike, PT Hip pain, unspecified laterality (Primary Dx) 05/25/2025 1:30 PM EDT Treatment Outpatient [address] [phone] Minoo Dukes, AMMONIA TECHNICIAN Hip pain, unspecified laterality (Primary Dx); Primary osteoarthritis of right hip 05/23/2025 12:00 PM EDT Treatment Outpatient [address] [phone] Chung Ontiveros, PT Hip pain, unspecified laterality (Primary Dx); Primary osteoarthritis of right hip 05/17/2025 2:00 PM EDT Office Visit Adult Medicine [facility] - [address] [phone] Rod Ashley MD Hospital discharge follow-up (Primary Dx); Anemia, unspecified type; Duodenal ulcer; Dilated cardiomyopathy (CMS/HCC V24, CMS/HCC V28); HFrEF (heart failure with reduced ejection fraction) (CMS/HCC V24, CMS/HCC V28); Essential hypertension; Frequent PVCs; Sick sinus syndrome (CMS/HCC V24, CMS/HCC V28); Aneurysm of ascending aorta without rupture ([facility]/HCC V24); Controlled diabetes mellitus type II without complication ([facility]/HCC V24, CMS/HCC V28); Mixed hyperlipidemia 05/16/2025 10:30 AM EDT Treatment Outpatient [address] [phone] Rama Curtis, PT Hip pain, unspecified laterality (Primary Dx) 05/08/2025 10:00 AM EDT Treatment Outpatient [address] [phone] KellirMinoo, AMMONIA TECHNICIAN Hip pain, unspecified laterality (Primary Dx) 05/05/2025 9:30 AM EDT Treatment Outpatient [address] [phone] RamaAnnCurtis, PT Hip pain, unspecified laterality (Primary Dx) 05/01/2025 9:30 AM EDT Treatment Outpatient [address] [phone] KellirMinoo, AMMONIA TECHNICIAN Hip pain, unspecified laterality (Primary Dx) 04/24/2025 Telephone [facility] [address] [facility] [address] [place] [phone] Patrick Lindo MD 04/21/2025 1:30 PM EDT Treatment Outpatient [address] [phone] Minoo Dukes, AMMONIA TECHNICIAN Hip pain, unspecified laterality (Primary Dx) 04/21/2025 Telephone [facility] - [facility] [address] [place] [phone] Provider, Not In System 04/20/2025 11:30 AM EDT Consult Orthopedic Surgery - [place] [facility] [address] [place] [phone] Faye Solo MD Primary osteoarthritis of right hip 04/19/2025 9:30 AM EDT Treatment Outpatient Rehabilitation - [place] [address] [place] [phone] Minoo Dukes, AMMONIA TECHNICIAN Hip pain, unspecified laterality (Primary Dx) from Last 3 Months Immunizations Immunization Administration Dates Next Due Influenza Quadravalent, MDCK , 0.5ml, preservative free (Flucelvax) 6mo and older 05/26/2019 Influenza trivalent, 0.5mL ( Fluad) 65yo and older 05/14/2023,05/26/2022,05/08/2020,05/23,05/17/2017 Influenza trivalent, 0.5mL, preservative free (Fluarix; FluLaval; Fluzone) ages 6mo and older (Afluria) 3 years and older 05/20/2016,05/08/2015,06/07/2014,05/24,04/27/2012,04/29/2011,05/23/2010 ,04/20/2009,05/05/2008,05/05/2007 [facility] SARS-CoV-2 COVID-19, mRNA, LNP-S, preservative free 06/12/2021 [...] Date Site/Laterality Comments OTHER SURGICAL HISTORY PROCEDURE: [place] TONSILLECTOMY PRIMARY/SECONDARY AGE 12/> OTHER SURGICAL HISTORY PROCEDURE: [place] REVJ MASTOIDECTOMY RSLTG COMPL MASTOIDECTOMY CIRCUMCISION, PRIMARY PROCEDURE: HISTORICAL CIRCUMCISION OTHER SURGICAL HISTORY PROCEDURE: HISTORY OTHER; COMMENT: RT FOOT HAMMER TOE SURGERY DR MENA 2O02 OTHER SURGICAL HISTORY PROCEDURE: HISTORY OTHER; COMMENT: rt shoulder rotator cuff repair dr machado TURP / TRANSURETHRAL INCISIO N / DRAINAGE PROSTATE PROCEDURE: HISTORICAL TURP; COMMENT: 2008 DR VEGA COLONOSCOPY 02/18/2011 PROCEDURE: [place] COLONOSCOPY FLX DX W/COLLJ SPEC WHEN PFRMD; [...] care for your loved ones. For example, early childhood education worker or elderly care for an older adult? [...] on file Sexual Orientation Not on file Last Filed Vital Signs Vital Sign Reading Time Taken Comments Blood Pressure 107/51 06/14/2025 9:09 AM EST Pulse 62 06/14/2025 9:09 AM EST Temperature 36.4 C (97.5 F) 06/14/2025 9:09 AM EST Respiratory Rate 17 06/14/2025 9:09 AM EST Oxygen Saturation 97% 05/17/2025 1:56 PM EDT Inhaled Oxygen Concentration - - Weight 92.7 kg (204 lb 6.4 oz) 06/14/2025 9:09 A M EST Height 177.8 cm (5' 10 ) 06/14/2025 9:09 AM EST Body Mass Index 29.33 06/14/2025 9:09 AM EST Plan of Treatment Upcoming Encounters Date Type Department Care Team (Late st Contact Info) Description 07/18/2025 10:00 AM EST Office Visit Adult Medicine [address] [phone] Louise Trivedi PA [address] [place] [address] 08/08/2025 1:30 PM EST Office Visit Adult Medicine [address] [phone] Shree Urbina PA [address] [place] [phone] Health Maintenance Due Date Last Done Comments Zoster Vaccines (2 of 3) 02/04/2012 12/10/2011, 04/27 RSV Immunization Adult Patients (1 - 1-dose 75+ series) 10/20/2015 Medicare Annual Wellness Visit 07/05/2022 COVID-19 Vaccine ( - 2024- season) 2025 12/10/2021, 07/14/2021, 06/12/2021, Additional history exists Diabetes: Annual Foot Exam 03/30/2025 03/30/2024 Diabetes: Annual Retina Eye Exam 10/06/2025 10/06/2024 Falls Risk Assessment 10/12/2025 10/12/2024 Social Influencers of Health Screening 10/12/2025 10/12/2024 Diabetes: Blood Sugar Control Test (HGBA1C) 01/12/2026 07/14/2025, 04/11/2025, 10/11/2024, Additional history exists Diabetes: Annual Urine Albumin-Creatinine Ratio (uACR) 07/14/2026 07/14/2025, 04/11/2025, 10/11/2024, Additional history exists Diabetes: Annual GFR (Glomerular Filtration Rate) 07/14/2026 07/14/2025, 05/31/2025, 04/11/2025, Additional history exists Hypertension/CHF/CAD Annual BMP Blood Test 07/14/2026 07/14/2025, 05/31/2025, 04/11/2025, Additional history exists DTaP,Tdap,and Td Vaccines (5 - Td or Tdap) 06/13/2030 06/13/2020, 06/12/2020, 09/23/2012, Additional history exists Cholesterol Screening (Lipid Panel) 07/14/2030 07/14/2025, 04/11/2025, 10/11/2024, Additional history exists Pneumococcal Vaccine: 50+ Years Completed 12/12/2014, 11/07/2008 Depression Screening Completed 10/12/2024 Influenza Vaccine Completed 05/18/2025, , 05/14/2023, Additional history exists HIB Vaccines Aged Out No longer eligi [...] PT PT LTG x 15 visits from [facility] 04/14/25 General Improving( 11:54 AM EDT) No Chung Ontiveros, PT Note: [x] = goal MET [] = goal NOT MET [] Pt will have no difficulty with dressing LE [] Pt will wake 1 x/wk at most due to hip Sx Procedures Procedure Name Priority Date/Time Associated Diagnosis Comments CBC WITH AUTO DIFFERENTIAL Routine 07/14/2025 8:58 [...] II without complication (CMS/HCC V24, CMS/HCC V28) COMPREHENSIVE METABOLIC PANEL Routine 07/14/2025 8:58 [...] II without complication (CMS/HCC V24, CMS/HCC V28) THYROID STIMULATING HORMONE WITH REFLEX TO FREE [...] II without complication (CMS/HCC V24, CMS/HCC V28) EXTERNAL CLINICAL LAB 06/01/2025 CBC WITH AUTO DIFFERENTIAL Routine 05/31/2025 9:58 AM EST Anemia, unspecified type Duodenal ulcer BASIC METABOLIC PANEL Routine 05/31/2025 9:58 AM EST HFrEF (heart failure with reduced ejection fraction) (CMS/HCC V24, CMS/HCC V28) CBC AND DIFFERENTIAL Routine 05/31/2025 9:58 AM EST Anemia, unspecified type Duodenal ulcer EXTERNAL XRAY REPORT 04/23/[address] REPORT 04/23/2025 DIABETES FOOT EXAM Routine 03/30/2024 from Last 3 Months or Most Recently Relevant to Health Maintenance Results * Thyroid stimulating hormone with reflex to free t4 and free t3 (07/14/2025 8:58 AM EST) TSH 1.83 0.40 - 4.00 mcIU/mL 07/14/2025 12:34 PM EST [facility] Blood Venous blood specimen / Unknown Venipuncture / Unknown 07/14/2025 8:58 AM EST 07/14/2025 8:58 AM EST Shree FLEMING LAB BLOOD ORDERABLES Zara l Result [facility] [address] [place] [address], * Lipid panel with reflex to direct LDL (07/14/2025 8:58 AM EST) Cholesterol 107 0 - 200 mg/dL 07/14/2025 12:45 PM EST [facility] Triglycerides 46 0 - 150 mg/dL 07/14/2025 12:45 PM EST [facility] HDL 52 >=40 mg/dL 07/14/2025 12:45 PM EST [facility] LDL Calculated 46 0 - 100 mg/dL 07/14/2025 12:45 PM EST [facility] Comment:Estimated LDL is arlen culated using the Friedewald equation: Total cholesterol - HDL cholesterol - (Triglycerides/5) VLDL Cholesterol Arlen 9.2 mg/dL 07/14/2025 12:45 PM EST [facility] Non HDL Chol. (LDL+VLDL) 55 <145 mg/dL 07/14/2025 12:45 PM EST [facility] Chol/HDL Ratio 2.1 0.0 - 4.4 07/14/2025 12:45 PM EST [facility] Blood Venous blood specimen / Unknown Venipuncture / Unknown 07/14/2025 8:58 AM EST 07/14/2025 8:58 AM EST Shree FLEMING LAB BLOOD ORDERABLES Zara l Result [facility] [address] [place] [address], [place] [phone] * (ABNORMAL) CBC auto differential (07/14/2025 8:58 AM EST) Only the most recent of2 resultswithin the time period is included. [facility] Signature WBC 8.6 4.8 - 10.8 K/mcL LAB HEMETOLOGY METHOD 07/14/2025 10:49 AM [facility] RBC 3.50(L) 4.50 - 5.50 M/mcL LAB HEMETOLOGY METHOD 07/14/2025 10:49 AM [facility] Hemoglobin 9.2(L) 13.5 - 17.5 g/dL LAB HEMETOLOGY METHOD 07/14/2025 10:49 AM [facility] Hematocrit 28.4(L) 42.0 - 54.0 % LAB HEMETOLOGY METHOD 07/14/2025 10:49 AM [facility] MCV 81.8 79.0 - 98.0 FL LAB HEMETOLOGY METHOD 07/14/2025 10:49 AM [facility] MCH 26.5(L) 27.0 - 32.0 pcg LAB HEMETOLOGY METHOD 07/14/2025 10:49 AM [facility] MCHC 32.4 32.0 - 37.0 g/dL LAB HEMETOLOGY METHOD 07/14/2025 10:49 AM [facility] RDW 13.9 11.0 - 15.0 % LAB HEMETOLOGY METHOD 07/14/2025 10:49 AM [facility] Platelets 284 130 - 400 K/mcL LAB HEMETOLOGY METHOD 07/14/2025 10:49 AM [facility] MPV 9.2 7.0 - 11.0 FL LAB HEMETOLOGY METHOD 07/14/2025 10:49 AM [facility] NRBC 0.0 <1.0 % LAB HEMETOLOGY METHOD 07/14/2025 10:49 AM [facility] NRBC Absolute 0.00 <0.10 K/mcL LAB HEMETOLOGY METHOD 07/14/2025 10:49 AM [facility] Neutrophils Relative 77.9 % LAB HEMETOLOGY METHOD 07/14/2025 10:49 AM [facility] Lymphocytes Relative 7.1 % LAB HEMETOLOGY METHOD 07/14/2025 10:49 AM [facility] Monocytes Relative 14.0 % LAB HEMETOLOGY METHOD 07/14/2025 10:49 AM [facility] Eosinophils Relative 0.2 % LAB HEMETOLOGY METHOD 07/14/2025 10:49 AM [facility] Basophils Relative 0.2 % LAB HEMETOLOGY METHOD 07/14/2025 10:49 AM [facility] Immature Granulocytes Relative 0.6 % LAB HEMETOLOGY METHOD 07/14/2025 10:49 AM [facility] Neutrophils Absolute 6.67 1.50 - 7.00 K/mcL LAB HEMETOLOGY METHOD 07/14/2025 10:49 AM [facility] Lymphocytes Absolute 0.61(L) 1.00 - 5.00 K/mcL LAB HEMETOLOGY METHOD 07/14/2025 10:49 AM [facility] Monocytes Absolute 1.20(H) 0.20 - 1.00 K/mcL LAB HEMETOLOGY METHOD 07/14/2025 10:49 AM [facility] Eosinophils Absolute 0.02 0.00 - 0.50 K/mcL LAB HEMETOLOGY METHOD 07/14/2025 10:49 AM [facility] Basophils Absolute 0.02 0.00 - 0.20 K/mcL LAB HEMETOLOGY METHOD 07/14/2025 10:49 AM [facility] Immature Granulocytes Absolute 0.05(H) 0.00 - 0.03 K/mcL LAB HEMETOLOGY METHOD 07/14/2025 10:49 AM EST [facility] Blood Venous blood specimen / Unknown Venipuncture / Unknown 07/14/2025 8:58 AM EST 07/14/2025 8:58 AM EST Shree FLEMING LAB BLOOD ORDERABLES Zara l Result Performing Organization Address City/[facility]/ZIP Co de Phone Number [facility] [address] [place] [address], [place] [phone] * (ABNORMAL) Iron and TIBC (07/14/2025 8:58 AM EST) Iron 23(L) 50 - 160 mcg/dL 07/14/2025 12:43 PM [facility] TIBC 350 250 - 450 mcg/dL 07/14/2025 12:43 PM [facility] Iron Saturation 7(L) 20 - 50 % 12:43 PM [facility] Blood Venous blood specimen / Unknown Venipuncture / Unknown 07/14/2025 8:58 AM EST 07/14/2025 8:58 AM EST Shree FLEMING LAB BLOOD ORDERABLES Zara l Result Performing Organization Address City/[facility]/ZIP Co de Phone Number [facility] [address] [place] [address], [place] [phone] * (ABNORMAL) Microalbumin creatinine urine ratio (07/14/2025 8:58 AM EST) Creatinine, Urine 128.0 mg/dL 07/14/2025 11:11 AM [facility] Microalb, Ur 48.0(H) 0.0 - 29.0 mg/L 07/14/2025 11:11 AM EST [facility] Microalb/Creat Ratio 38(H) <30 mg/g creat 07/14/2025 11:11 AM EST [facility] Urine Urine specimen obtained by clean catch procedure / Unknown Non-blood Collection / Unknown 07/14/2025 8:58 AM EST 07/14/2025 8:58 AM EST Shree Urbina [place] LAB URINE ORDERABLES Zara l Result Performing Organization Address [facility]/ZIP Co de Phone Number [facility] [address] [place] [address], [place] [phone] * (ABNORMAL) Hemoglobin A1c (07/14/2025 8:58 AM EST) Pathologist [facility] Hemoglobin A1C 6.5(H) <6.5 % LAB CHEMISTRY METHOD 07/14/2025 12:27 PM [facility] Mean Bld Glu Estim. 140 mg/dL LAB CHEMISTRY METHOD 07/14/2025 12:27 PM [facility] Blood Venous blood specimen / Unknown Venipuncture / Unknown 07/14/2025 8:58 AM EST 07/14/2025 8:58 AM EST Shree FLEMING LAB BLOOD ORDERABLES Zara l Result Performing Organization Address [facility]/ZIP Co de Phone Number [facility] [address] [place] [address], [place] [phone] * (ABNORMAL) Comprehensive metabolic panel (07/14/2025 8:58 AM EST) Sodium 123(L) 133 - 145 mmol/L 07/14/2025 12:43 PM [facility] Potassium 4.8 3.5 - 5.5 mmol/L 07/14/2025 12:43 PM [facility] Chloride 88(L) 96 - 110 mmol/L 07/14/2025 12:43 PM [facility] CO2 26 21 - 32 mmol/L 07/14/2025 12:43 PM [facility] Anion Gap 9 3 - 11 07/14/2025 12:43 PM [facility] Glucose 127(H) 70 - 100 mg/dL 07/14/2025 12:43 PM [facility] BUN 12 5 - 25 mg/dL 07/14/2025 12:43 PM [facility] Creatinine 0.76 0.70 - 1.30 mg/dL 07/14/2025 12:43 PM [facility] eGFR 89 >=60 mL/min/1. 73m2 07/14/2025 12:43 PM [facility] Comment:Calculation based on the Chronic Kidney Disease Epidemiology Collaboration (CKD-EPI) equation refit without adjustment for race. BUN/Creatinine Ratio 15.8 07/14/2025 12:43 PM [facility] Calcium 8.9 8.5 - 10.5 mg/dL 07/14/2025 12:43 PM [facility] AST (SGOT) 20 10 - 42 unit/L 07/14/2025 12:43 PM [facility] ALT (SGPT) 25 10 - 60 unit/L 07/14/2025 12:43 PM [facility] Alkaline Phosphatase 100 42 - 121 unit/L 07/14/2025 12:43 PM [facility] Total Protein 6.2 6.0 - 8.0 g/dL 07/14/2025 12:43 PM [facility] Albumin 3.7 3.2 - 5.0 g/dL 07/14/2025 12:43 PM [facility] Total Bilirubin 0.6 0.0 - 1.4 mg/dL 07/14/2025 12:43 PM [facility] Blood Venous blood specimen / Unknown Venipuncture / Unknown 07/14/2025 8:58 AM EST 07/14/2025 8:58 AM EST Shree FLEMING LAB BLOOD ORDERABLES Zara l Result [facility] [address] [place] [address], * External clinical lab (06/01/2025) Provider [facility] LAB BLOOD ORDERABLES Fin al Result * (ABNORMAL) Basic metabolic panel (05/31/2025 9:58 AM EST) Sodium 132(L) 133 - 145 mmol/L LAB CHEMISTRY METHOD 05/31/2025 12:54 PM [facility] Potassium 4.7 3.5 - 5.5 mmol/L LAB CHEMISTRY METHOD 05/31/2025 12:54 PM [facility] Chloride 99 96 - 110 mmol/L LAB CHEMISTRY METHOD 05/31/2025 12:54 PM [facility] CO2 28 21 - 32 mmol/L LAB CHEMISTRY METHOD 05/31/2025 12:54 PM [facility] Anion Gap 5 3 - 11 LAB CHEMISTRY METHOD 05/31/2025 12:54 PM [facility] Glucose 109(H) 70 - 100 mg/dL LAB CHEMISTRY METHOD 05/31/2025 12:54 PM [facility] BUN 17 5 - 25 mg/dL LAB CHEMISTRY METHOD 05/31/2025 12:54 PM [facility] Creatinine 0.88 0.70 - 1.30 mg/dL LAB CHEMISTRY METHOD 05/31/2025 12:54 PM [facility] eGFR 85 >=60 mL/min/1. 73m2 LAB CHEMISTRY METHOD 05/31/2025 12:54 PM [facility] Comment:Calculation based on the Chronic Kidney Disease Epidemiology Collaboration (CKD-EPI) equation refit without adjustment for race. BUN/Creatinine Ratio 19.3 LAB CHEMISTRY METHOD 05/31/2025 12:54 PM EST [facility] Calcium 9.4 8.5 - 10.5 mg/dL LAB CHEMISTRY METHOD 05/31/2025 12:54 PM EST [facility] Blood Venous blood specimen / Unknown Venipuncture / Unknown 05/31/2025 9:58 AM EST 05/31/2025 9:58 AM EST Shree FLEMING LAB BLOOD ORDERABLES Zara pastrana Result [facility] [address] [place] [address], [place] [phone] * External Xray Report (04/23/2025) Anatomical Region Laterality Modality Radiographic Zabrina ging Provider [facility] XR PROCEDURES Final Result * External CT Report (04/23/2025) Anatomical Region Laterality Modality Computed Tomogra phy Provider [facility] CT PROCEDURES Final Result * Diabetes Foot Exam (03/30/2024) Diabetes: Annual Foot Exam Abstracted Historical Provider HEALTH MAINTENANCE Final Result from Last 3 Months or Most Recently Relevant to Health Maintenance Insurance MEDICARE [facility] Care Teams Community Aide Relationship Specialty Start Date End Date Shree Urbina PA [address] [place] [address] PCP - General Internal Medicine 10/11/24
--- OUTSIDE RECORDS SUMMARY | 2025-07-15 16:16 | XMS_ITS | Clinical Summary ---
Author Organization [facility] Prior to 12/24/[address] [place] [address] Care Team Providers Care Heater Installer Name Role Phone Shree Urbina PA-C Primary [...] history exists Influenza Vaccine (#1) 2025 , 05/26/2022, 05/08/2020, Additional history exists Pneumococcal Vaccine Completed 12/12/2014, 11/08/19 09 Hepatitis B Vaccines Aged Out No long er eligible based on patient's age to complete this topic RSV Ped < 20 months Aged Out No longe r eligible based on patient's age to complete this topic Care Teams Heater Installer Relationship Specialty Start Date End Date Shree Urbina, GILDARDOC PCP - General Medical Services 12/24/23
--- OUTSIDE RECORDS SUMMARY | 2025-07-15 16:16 | XMS_ITS | Encounter Summary ---
Author Organization [facility] [place] [address] Care Team Providers Care Personal Clothing Laundry Aide Name Role Phone Shree Urbina Primary Care Provider [phone] Encounter Details Date Type Department Care Team (Late st Contact Info) Description 07/14/2025 Results Follow-Up Adult Medicine [address] [phone] Shree Urbina PA [address] [place] [phone] Social History Tobacco Use Types Packs/Day Years [...] for your loved ones. For example, child psychiatrist or elderly care for an older adult? [...] 10:00 AM EST Office Visit Adult Medicine [address] [phone] Louise Trivedi PA [address] [place], [place] 08/08/2025 1:30 PM EST Office Visit Adult Medicine [address] [phone] Shree Urbina PA [address] [place] [phone] documented as of this encounter Goals Goal [...] Diagnoses Not on filedocumented in this encounter Additional Health Concerns Assessment Noted Time PHQ-9 Depression Total Score: 0 10/13/19 8:18 AM EDT A fall risk assessment has been complete d for the patient 10/12/2024 8:19 AM EDT documented as of this encounter Care Teams Personal Clothing Laundry Aide Relationship Specialty Start Date End Date Shree Urbina PA [address] [place] [id number] PCP - General Internal Medicine 10/11/24 documented as of this encounter
--- OUTSIDE RECORDS SUMMARY | 2025-07-15 16:17 | XMS_ITS | Clinical Summary ---
Author Organization [facility], Address [address] [place] [address] [place] [address] Phone Care Team Providers Care Fixed Wing Aircraft Flight Engineer Name Role Phone Rod Ashley Primary Care Provider [phone] [phone] Social History Tobacco Use Types Packs/Day Years [...] Insurance [employer] Care Teams Fixed Wing Aircraft Flight Engineer Relationship Specialty Start Date End Date Rod Ashley [address] [place] [address] PCP - General 02/15/24
--- OUTSIDE RECORDS SUMMARY | 2025-07-15 16:17 | XMS_ITS | Patient Health Record ---
Author Organization [facility] Address [address] [facility] [place] [address] Care Team Providers Care Coordinator Skill Training Program Name Role Phone Shree Aguiar Primary Care Provider Unav ailable Giana Christina Unavailable [phone] Allergies No Known Allergies Results Component Value [...] Polyneuropathy due to diabetes mellitus type I (308388614) 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 confirmed Problem Polyneuropathy due to type 2 diabetes mellitus (714350027) Type 2 diabetes mellitus with diabetic polyneuropathy (E11.42) Active confirmed Vital Signs Blood pressure diastolic 60 mm Hg 11/07/2024 Height [id number] in 11/07/2024 Blood pressure systolic 130 mm Hg 11/07/2024 Weight 199 lbs 11/07/2024 BMI 27.75 kg/m2 11/07/2024 Procedures Procedure Date Ordered Date Performed Result Body Sit e [id number]-[id number] NAIL, 6 OR MORE 11/07/2024 N/A 06735-NSGY SKIN LESIONS, OVER 4 11/07/2024 N/A Encounters Encounter Location Date Provider Diagnosis [facility] [address] [address] 11/07/2024 Giana Christina Type 2 diabetes mellitus with diabetic polyneuropathy E11.42 and Tinea unguium B35.[address] [facility] [address] [address] 01/24/2025 Giana Christina Assessments Encounter Date Diagnosis (ICD Code) Assessment Notes Treatment Notes Treatment Clinical Notes Section Notes 11/07/2024 Type 2 diabetes mellitus with diabetic polyneuropathy (ICD-10 - E11.42) 11/07/2024 Tinea unguium (ICD-10 - B35.1) Plan Of Treatment Pending Test Test Name Order Date [id number] NAIL, 6 OR MORE 06/27/2024 18154-[id number] NAIL, 6 OR MORE 11/07/2024 34490-OGJD SKIN LESIONS, OVER 4 11/08/19 25 04597-BZSM SKIN LESIONS, 2 TO 4 06/27/20 24 Insurance Providers Payer Name Payer Address Payer Phone Subscriber Number Group Number Insured Name Patient Relationship to Insured Coverage Start Date Coverage End Date [facility] Plan [address] [place] [address] [phone] [id number] Damien Tapia Self - patient is the insured Medical (General) History Medical History History ICD Code Arthritis Back,Hip,and Knee pain Cataracts Diabetic High blood pressure Macular degeneration Chicken pox Surgical History Surgery Date(Month/Year) hammer toe rotator cuff tear repair 04/03 TURP (transurethral resection of the pro state) 01/02
--- OUTSIDE RECORDS SUMMARY | 2025-07-15 16:17 | XMS_ITS | Encounter Summary ---
Author Organization [facility] [place] [address] Care Team Providers Care Asset Management Coordinator Name Role Phone Shree Urbina Primary Care Provider [phone] Encounter Details Date Type Department Care Team (Late st Contact Info) Description 05/31/2025 Results Follow-Up Adult Medicine [facility] [address] [place], [place] [phone] Rod Ashley MD [address] [place], [place] Social History Tobacco Use Types Packs/Day Years [...] care for your loved ones. For example, childrens club attendant or elderly care for an older adult? [...] 10:00 AM EST Office Visit Adult Medicine [address] [phone] Louise Trivedi PA [address] [place], [place] 08/08/2025 1:30 PM EST Office Visit Adult Medicine [address] [phone] Shree Urbina PA [address] [place] [phone] documented as of this encounter Goals Goal [...] documented as of this encounter Care Teams Asset Management Coordinator Relationship Specialty Start Date End Date Shree Urbina PA [address] [place] [address] PCP - General Internal Medicine 10/11/24 documented as of this encounter
--- OUTSIDE RECORDS SUMMARY | 2025-07-15 16:17 | XMS_ITS | Encounter Summary ---
Author Organization [facility] [place] [address] Care Team Providers Care Assistant Manager Name Role Phone Shree Urbina Primary Care Provider [phone] Encounter Details Date Type Department Care Team (Late st Contact Info) Description 05/31/2025 Results Follow-Up Adult Medicine [address] [phone] Shree Urbina PA [address] [place] [phone] Social History Tobacco Use Types Packs/Day Years [...] for your loved ones. For example, child nutrition manager or elderly care for an older adult? [...] 10:00 AM EST Office Visit Adult Medicine [address] [phone] Louise Trivedi PA [address] [place], [place] 08/08/2025 1:30 PM EST Office Visit Adult Medicine [address] [phone] Shree Urbina PA [address] [place] [phone] documented as of this encounter Goals Goal [...] documented as of this encounter Care Teams Assistant Manager Relationship Specialty Start Date End Date Shree Urbina PA [address] [place] [address] PCP - General Internal Medicine 10/11/24 documented as of this encounter
--- OUTSIDE RECORDS SUMMARY | 2025-07-15 16:17 | XMS_ITS | Encounter Summary ---
Author Organization [facility] Address [address] [place] [address] Phone Care Team Providers Care Superintendent Nonselling Name Role Phone Rod Ashley Primary Care Provider [phone] [phone] Encounter Details Date Type Department Care Team (Late st Contact Info) Description 02/15/2024 Documentation Only [facility], [address] [place] [address] Pam Á[place], [place] [address] [place] [address] Social History Tobacco Use Types [...] on filedocumented in this encounter Care Teams Superintendent Nonselling Relationship Specialty Start Date End Date Rod Ashley [address] [place] [address] PCP - General 02/15/24 documented as of this encounter
--- OUTSIDE RECORDS SUMMARY | 2025-07-15 16:17 | XMS_ITS | Data Portability ---
Author Organization [place] - [facility], Allergy Address [address] [place] [phone] Care Team Providers Care Transformation Architect Name Role Phone NICOLE LIZ Referring Provider [...] mandibular mass x 3 months 2023 024 [id number] [facility], [address] [place], [address], 15:44:32 Medication Orders None recorded. Patient TargetsNo targets recorded. Patient Instructions Encounter Date Encounter Id Patient Instructions Last Modified By Organization Details Last Modified Time 02/02/2024 [id number] Differential diagnosis was reviewed with patient to [...] Organization Details Recorded Time Mass of neck 801053452 Active 2023 Nadia raya [place] - [facility] 4 10:05:51 Referred otalgia of right ear 576788542828222 0 Active 2023 BRADLEY Chaidez [facility] 4 10:12:27 Disorder of jaw 10125471 Active 2023 Nadia raya [place] [facility] 4 13:46:49 Problem Notes None recorded. Medical [...] Updated DateTime 02/02/2024 180.34 cm 27.1 kg/m2 92154.72 g Criss Millerues [facility] 02/02/2024 09:24:43 Date Recorded Body height Body mass index (BMI) Body weight Provider Name and Address Organization Details Last Updated DateTime 03/03/2024 180.34 cm 27.1 kg/m2 18081.92 g Roselyn Lau [facility] 03/03/2024 13:04:07 Social History None recorded. Functional Status None recorded. Mental Status None recorded. Family History Nothing Reported. Medical History No medical history recorded. Past Encounters Encounter ID Performer Location Encounter Start Date Encounter Closed Date Diagnosis/Indication Diagnosis SNOMED-CT Code Diagnosis ICD10 Code Diagnosis IMO Codes Diagnosis Note [id number] CELINE GARCIA MD [facility] [address] [address] 02/02/2024 09:17:09 02/02/2024 09:49:15 Mass of neck 576686154 R22.1 Referred o talgia of right ear 9949706962 092080 H92.01 [id number] NADIA LAU PA-C [facility] [address] [address] 03/03/2024 12:55:51 03/03/2024 13:16:58 Disorder of jaw 68181989 M27.9 Health Concerns Section Related Observation LastModified by Organization Detai ls LastModified Time None Recorded Concern Status LastModified by Organization Details LastModified Time None Recorded Advance Directives Directive None Recorded Payers Insurance Date Sequence Insurance Name Policy Number Policy Acosta Covered Member ID Acosta Member ID Guarantor Name 03/03/2024 1 [facility] (POS) [id number] Damien Tapia [id number] Damien Tapia Notes Date Note Type Note [...] or benign in appearance. CELINE GARCIA MD [address] [place] [address],[address], [address], [facility] 02/02/2024 13:05:00 03/03/2024 text/html ROS as noted in the HPI 83 year old male presents to follow up on neck/jaw mass. Reports the inflammation has gone down almost all the way back to normal, and the pain has resolved. No dysphagia, hemoptysis, sore throat, nor hoarseness. No other masses in the neck. No fevers nor weight loss. JOHN MEYERS MD [address] [place] [address],[address], [address], [facility] 03/03/2024 16:29:19
[2025-07-15 16:38] LABS: NT Pro B Type Natriuretic Pept 2062.5 pg/mL (<300)
[2025-07-15 16:56] VITALS: BP 151/53; PULSE 66; RESP 16; TEMP 36.6; O2SAT 92
[2025-07-15 17:07] VITALS: BP 151/53
[2025-07-15] MEDS: Furosemide 40 MG/4 ML VIAL IVPUSH (17:07)
--- NOTE | 2025-07-15 18:03 | PHA.MEDREC ---
Addendum entered by Annemarie Brizuela RPh 07/15/25 18:09: Reviewed by [facility] Original Note: Pharmacy Consult ? Medication Reconciliation Pharmacy has completed the medication reconciliation. Confirmed medication list with patient and against pharmacy claims. Patient no longer taking ibuprofen as it is suspected cause of GI bleed. Patient claims he may be going on pantoprzole 20 mg QD, but is currently finishing up Pantoprazole 20 mg BID.
--- NOTE | 2025-07-15 18:33 | PM.IMHP ---
History of Present Illness Date of Service: 07/15/25 Chief Complaint: Shortness of breath 84-year-old male with past medical history significant for upper GI bleed, hypertension, heart failure who presented to hospital complaining of worsening shortness of breath and generalized weakness. That began approximately 1 month ago, with occasional orthopnea and dry cough, patient also mentions ascending edema. Denies any nausea, vomiting, fevers, palpitations. Patient states that he was previously being treated for HFrEF however discontinue medications as EF had improved. In the ED, labs showing sodium of 123, proBNP of 2, chest x-ray with mild pulmonary edema, faint bilateral opacities centrally and at lung bases. Patient given IV Lasix in the ED. Review of Systems Review of Systems: Fourteen point review of systems obtained, negative except as stated above [facility] Medical History Sick sinus syndrome Atrial fibrillation Cardiomyopathy H/O echocardiogram Diabetes Bilateral cataracts Osteoarthritis HTN (hypertension) Surgical History S/P TURP (status post transurethral resection of prostate) H/O colonoscopy H/O shoulder surgery Social History Household Members: Spouse Housing: House Do you presently have visiting nurse or other home services: No Alcohol intake: current Alcohol intake frequency: does not drink Patient Tobacco Use Status: Former Tobacco user Smoked in Last 30 Days: No Use of substances other than those prescribed or required for medical reasons: No Advance Directives: No Advance Directives Information Provided: No Do you have a plan to hurt others: No Plan service: Yes Meds Allergies Allergy/AdvReac Type Severity Reaction Status Date / Time No Known Allergies Allergy Verified 07/15/25 15:03 Active Medications: Current Medications Acetaminophen (Acetaminophen 325 Mg Tablet) 650 mg PO Q6H PRN PRN Reason: Pain, Mild 1-3,fever,headache Atorvastatin Calcium (Atorvastatin Calcium 20 Mg Tablet) 20 mg PO DAILY RAPHAEL Calcium Carbonate (Calcium Carbonate 750 Mg Tab.Chew) 750 mg PO Q4H PRN PRN Reason: Heartburn Cyanocobalamin (Cyanocobalamin (Vitamin B-12) 500 Mcg Tablet) 500 mcg PO DAILY RAPHAEL Furosemide (Furosemide 100 Mg/10 Ml Vial) 60 mg IVPUSH BID [facility]; Protocol Furosemide (Furosemide 20 Mg/2 Ml Vial) 20 mg IVPUSH ONCE ONE; Protocol Stop: 07/15/25 18:30 Heparin Sodium (Porcine) (Heparin Sodium,Porcine 5,000 Unit/Ml Vial) 5,000 unit SUBCUT Q12H [facility] Losartan Potassium (Losartan Potassium 50 Mg Tablet) 100 mg PO DAILY RAPHAEL; Protocol Magnesium Hydroxide (Milk Of Magnesia 30 Ml Oral.Susp) 30 ml PO DAILY PRN PRN Reason: Constipation Melatonin (Melatonin 3 Mg Tablet) 6 mg PO BEDTIME PRN PRN Reason: Insomnia Multivitamins/Vitamin C (Multivitamin Tablet) 1 tab PO BID [facility] Omeprazole (Omeprazole 20 Mg Capsule.Dr) 20 mg PO BID@0630,1630 [facility] Ondansetron HCl (Ondansetron Hcl 4 Mg/2 Ml Vial) 4 mg IVPUSH Q8H PRN PRN Reason: Nausea and Vomiting Sodium Chloride (0.9 % Sodium Chloride Flush 3 Ml Syringe) 3 ml IVFLUSH QSHIFT [facility] Tamsulosin HCl (Tamsulosin Hcl 0.4 Mg Capsule) 0.4 mg PO DAILY [facility] Vitamin D (Cholecalciferol (Vitamin D3) 25 Mcg Tablet) 25 mcg PO DAILY [facility] Home Medications ?Medication ?Instructions ?Recorded ?Confirmed ?Last Taken ?Type acetaminophen 500 mg tablet 1,000 mg PO DAILY@1999 PRN Pain 04/23/25 07/15/25 07/14/25 History alfuzosin 10 mg tablet,extended 10 mg PO DAILY 04/23/25 07/15/25 07/15/25 History release 24 hr amlodipine 10 mg tablet 10 mg PO DAILY 04/23/25 07/15/25 07/15/25 History atorvastatin 20 mg tablet 20 mg PO DAILY 04/23/25 07/15/25 07/15/25 History cholecalciferol (vitamin D3) 25 25 mcg PO DAILY 04/23/25 07/15/25 07/15/25 History mcg (1,000 unit) tablet (Vitamin D3) cyanocobalamin (vitamin B-12) 500 500 mcg PO DAILY 04/23/25 07/15/25 07/15/25 History mcg tablet losartan 100 mg tablet 100 mg PO DAILY 04/23/25 07/15/25 07/15/25 History vitamins A,C,W-ngub-suwgkl 2,148 1 tab PO BID 04/23/25 07/15/25 07/15/25 History mcg-113 mg-45 mg-17.4 mg tablet (PreserVision AREDS) pantoprazole 20 mg tablet,delayed 20 mg PO BID@0630,1630 07/15/25 07/15/25 07/15/25 History release Physical Exam Vital Signs and Narrative: Vital Signs: Last Vital Signs Temp 97.9 F 07/15/25 16:56 Pulse 66 07/15/25 16:56 Resp 16 07/15/25 16:56 BP 151/53 H 07/15/25 17:07 Pulse Ox 92 07/15/25 16:56 O2 Del Method Room Air 07/15/25 16:56 BMI result Body Mass Index 31.3 General: AxOx3, mild distress Head: AT/NC ENT: Moist mucous membranes Neck: supple CVS; irregular rate and rhythm Lungs: Mild bilateral rales Abd: Soft non tender, anasarca Ext: Bilateral lower extremity edema 2+ MSK: moving all 4 limbs Skin: Bilateral extremity edema with sacral edema Psych: Cooperative with exam Neurology: no focal deficit Results Labs 07/15/25 15:20 07/15/25 15:20 Labs: Laboratory Results - last 24 hr 07/15/25 15:20 MCV 80.9 MCH 26.6 L MCHC 32.9 RDW 14.1 Plt Count 280 MPV 9.4 Immature Gran % (Auto) 0.9 H Neut % (Auto) 77.9 H Lymph % (Auto) 6.6 L Grant % (Auto) 13.9 H Eos % (Auto) 0.3 Baso % (Auto) 0.4 Lymph # (Auto) 0.7 L Grant # (Auto) 1.5 H Eos # (Auto) 0.0 Baso # (Auto) 0.0 Abs Immat Gran (auto) 0.09 H Absolute Neuts (auto) 8.2 Absolute Nucleated RBC 0.000 Nucleated RBC % (auto) 0.0 Anion Gap 15 Estim Creat Clear Calc 87.9 Estimated GFR > 60 Random Glucose 144 H Calcium 9.2 D Total Bilirubin 0.5 Direct Bilirubin 0.2 AST 28 ALT 26 Alkaline Phosphatase 99 Troponin I High Sens 15.9 D NT-Pro-B Natriuret Pep 2062.5 H Total Protein 6.6 Albumin 3.9 Assessment and Plan (1) Congestive heart failure: Status: Acute (2) Acute hyponatremia: Status: Acute Plan Assessment: 84-year-old male who presented to hospital complaining of worsening shortness of breath and lower extremity edema that began approximately 1 month ago. In the ED chest x-ray showing pulmonary edema, with proBNP 2062.5, received IV Lasix. Congestive heart failure Heart failure exacerbation Acute hypoxic respiratory failure, likely secondary to heart failure exacerbation -proBNP 2062.5 -chest x-ray showing pulmonary edema with bilateral opacities -patient not on diuretics at home, we will initiate Lasix 60 mg IV b.i.d. -TTE ordered -strict Is&Os -daily weights -salt restriction -telemetry -cardiology consulted Hyponatremia, likely in the setting of fluid overload, we will continue with IV Lasix -Urine sodium, urine osmo and serum osmol ordered and pending -continue monitor labs Hypertension, chronic - we will hold amlodipine and losartan at this time, Continue IV Lasix. We will monitor and adjust blood pressure accordingly BPH, chronic Continue tamsulosin 0.4 mg p.o. q.d. Hyperlipidemia, chronic Continue atorvastatin 10 mg q.d.. Anemia, suspect of chronic disease -we will monitor for any signs of bleeding, we will transfuse for hemoglobin less than 7 Ambulatory dysfunction and generalized weakness, likely secondary to heart failure exacerbation -we will consult PT/OT -fall precautions FEN: NI, replete as needed, cardiac sodium restricted GI PPX: Protonix DVT PPX: SCDs, heparin Code status: Full code Disposition: Patient requires at least 2 overnight stays in the setting of heart failure exacerbation requiring IV diuretics and close repletion of electrolytes. Total time managing care of this patient today: 75 minutes. Quality Stroke Does the patient have a stroke diagnosis?: No VTE Prior VTE?: No VTE Risk Level:: Medical - moderate - high VTE Device Contraindication: N/A - Device Ordered VTE Drug Contraindication: N/A - Med Ordered
[2025-07-15 19:10] VITALS: BP 123/65; PULSE 88; RESP 20; O2SAT 92
[2025-07-15] MEDS: Furosemide 20 MG/2 ML VIAL IVPUSH (19:16)
[2025-07-15 20:27] LABS: Osmolality, Serum 262 mosm/kg (281-305)
[2025-07-15 20:34] VITALS: BMI 30.4
[2025-07-15 20:41] LABS: Resp Syncy Virus RNA Qual PCR NEGATIVE (Negative); SARS COV2 PCR INHOUSE NEGATIVE (Negative)
[2025-07-15] MEDS: 0.9 % Sodium Chloride Flush 3 ML SYRINGE IVFLUSH (22:50)
[2025-07-15 22:54] VITALS: BP 149/68; PULSE 94; RESP 17; TEMP 36.5; O2SAT 93
[2025-07-16] VITALS (7 sets, daily range): BP systolic 112–147; BP diastolic 53–86; PULSE 76–115; RESP 16–20; TEMP 36.3–36.8; O2SAT 90–96
--- NOTE | 2025-07-16 | ECG_ITS ---
Test Reason : tachycardia Blood Pressure : */* mmHG Vent. Rate : 96 BPM Atrial Rate : * BPM P-R Int : * ms QRS Dur : 136 ms QT Int : 370 ms P-R-T Axes : * -15 130 degrees QTcB Int : 467 ms Atrial fibrillation with premature ventricular or aberrantly conducted complexes Non-specific intra-ventricular conduction block Minimal voltage criteria for LVH, may be normal variant ( Moustapha product ) Cannot rule out Anterior infarct , age undetermined T wave abnormality, consider lateral ischemia Abnormal ECG When compared with ECG of 15-Jul-2025 15:12, Atrial fibrillation has replaced Sinus rhythm Referred By: Xavi Connell Electronically Signed By: RAVI BOUCHER MD
[2025-07-16 08:18] LABS: Hematocrit 27.6 % (42.0-52.0); Hemoglobin 8.8 g/dl (14.0-18.0); Mean Corpuscular HGB Conc 31.9 g/dl (31.0-36.0); Mean Corpuscular Hemoglobin 26.4 pg (27.0-33.0); Mean Corpuscular Volume 82.9 fL (80.0-98.0); NRBC Abs Auto 0.000 X10*3/uL (0.0-0.012); NRBC Pct Auto 0.0 /100WBC (0.0-0.2); Platelet Count 273 X10*3/uL (160-400); Red Blood Count 3.33 X10*6/uL (4.60-5.80); White Blood Count 9.5 X10*3/uL (4.8-10.8)
[2025-07-16] MEDS: Furosemide 100 MG/10 ML VIAL 60 MG IVPUSH ×2 (08:23→20:23)
[2025-07-16] MEDS: 0.9 % Sodium Chloride Flush 3 ML SYRINGE IVFLUSH (08:25)
[2025-07-16 08:39] LABS: Anion Gap 12 (12-20); Blood Urea Nitrogen 10 mg/dL (9-16); Calcium 9.2 mg/dL (8.4-10.2); Carbon Dioxide 25 mmol/L (22-29); Chloride 93 mmol/L (96-108); Creatinine Clr Calc Pharmacy 96.9; Estimated Glomerular Filt Rate > 60; Magnesium 1.9 mg/dL (1.6-2.6); Potassium 4.4 mmol/L (3.3-5.1); Sodium 126 mmol/L (135-145)
--- NOTE | 2025-07-16 08:57 | P.PNIM_ITS ---
Subjective Subjective Date of Service: 07/16/25 Interval History: Patient seen and examined at bedside this morning, patient with negative fluid balance of 1 L, continues on IV diuretics. Mentions that his breathing has slightly improved. Review of Systems Review of Systems: Yes all other systems are reviewed and are negative Physical Exam 2 Exam: Exam: General: AxOx3, mild distress,improving Head: AT/NC ENT: Moist mucous membranes Neck: supple CVS; RRR Lungs: Bilateral rales Abd: Soft non tender, anasarca Ext: Bilateral lower extremity edema 2+ MSK: moving all 4 limbs Skin: Bilateral extremity edema with sacral edema Psych: Cooperative with exam Neurology: no focal deficit Vital Signs: Vital Signs: Last Vital Signs Temp 98.3 F 07/16/25 08:00 Pulse 86 07/16/25 08:00 Resp 16 07/16/25 08:00 BP 147/58 H 07/16/25 08:00 Pulse Ox 93 07/16/25 08:00 O2 Del Method Room Air 07/16/25 08:00 O2 Flow Rate 2 07/15/25 22:54 BMI result Body Mass Index 30.4 Objective Data Active Medications Acetaminophen (Acetaminophen 325 Mg Tablet) 650 mg PO Q6H PRN PRN Reason: Pain, Mild 1-3,fever,headache Atorvastatin Calcium (Atorvastatin Calcium 20 Mg Tablet) 20 mg PO DAILY [facility] Last Admin: 07/16/25 08:23 Dose: 20 mg Documented By: FREDRICK Calcium Carbonate (Calcium Carbonate 750 Mg Tab.Chew) 750 mg PO Q4H PRN PRN Reason: Heartburn Cyanocobalamin (Cyanocobalamin (Vitamin B-12) 500 Mcg Tablet) 500 mcg PO DAILY [facility] Last Admin: 07/16/25 08:23 Dose: 500 mcg Documented By: FREDRICK Furosemide (Furosemide 100 Mg/10 Ml Vial) 60 mg IVPUSH BID [facility]; Protocol Last Admin: 07/16/25 08:23 Dose: 60 mg Documented By: FREDRICK Heparin Sodium (Porcine) (Heparin Sodium,Porcine 5,000 Unit/Ml Vial) 5,000 unit SUBCUT Q12H [facility] Last Admin: 07/16/25 06:00 Dose: 5,000 unit Documented By: CARITO Losartan Potassium (Losartan Potassium 50 Mg Tablet) 100 mg PO DAILY [facility]; Protocol Last Admin: 07/16/25 08:23 Dose: 100 mg Documented By: FREDRICK Magnesium Hydroxide (Milk Of Magnesia 30 Ml Oral.Susp) 30 ml PO DAILY PRN PRN Reason: Constipation Melatonin (Melatonin 3 Mg Tablet) 6 mg PO BEDTIME PRN PRN Reason: Insomnia Multivitamins/Vitamin C (Multivitamin Tablet) 1 tab PO BID [facility] Last Admin: 07/16/25 08:23 Dose: 1 tab Documented By: FREDRICK Omeprazole (Omeprazole 20 Mg Capsule.Dr) 20 mg PO BID@0630,1630 [facility] Last Admin: 07/16/25 06:00 Dose: 20 mg Documented By: CARITO Ondansetron HCl (Ondansetron Hcl 4 Mg/2 Ml Vial) 4 mg IVPUSH Q8H PRN PRN Reason: Nausea and Vomiting Sodium Chloride (0.9 % Sodium Chloride Flush 3 Ml Syringe) 3 ml IVFLUSH QSHIFT [facility] Last Admin: 07/16/25 08:25 Dose: 3 ml Documented By: FREDRICK Tamsulosin HCl (Tamsulosin Hcl 0.4 Mg Capsule) 0.4 mg PO DAILY [facility] Last Admin: 07/16/25 08:23 Dose: 0.4 mg Documented By: FREDRICK Vitamin D (Cholecalciferol (Vitamin D3) 25 Mcg Tablet) 25 mcg PO DAILY [facility] Last Admin: 07/16/25 08:23 Dose: 25 mcg Documented By: FREDRICK Labs 07/16/25 07:38 07/16/25 07:38 Labs: Laboratory Results - last 24 hr 07/15/25 07/15/25 07/15/25 15:20 19:49 19:59 MCV 80.9 MCH 26.6 L MCHC 32.9 RDW 14.1 Plt Count 280 MPV 9.4 Immature Gran % (Auto) 0.9 H Neut % (Auto) 77.9 H Lymph % (Auto) 6.6 L [place] % (Auto) 13.9 H Eos % (Auto) 0.3 Baso % (Auto) 0.4 Lymph # (Auto) 0.7 L [place] # (Auto) 1.5 H Eos # (Auto) 0.0 Baso # (Auto) 0.0 Abs Immat Gran (auto) 0.09 H Absolute Neuts (auto) 8.2 Absolute Nucleated RBC 0.000 Nucleated RBC % (auto) 0.0 Anion Gap 15 Estim Creat Clear Calc 87.9 Estimated GFR > 60 Random Glucose 144 H Osmolality 262 L Calcium 9.2 D Magnesium Total Bilirubin 0.5 Direct Bilirubin 0.2 AST 28 ALT 26 Alkaline Phosphatase 99 Troponin I High Sens 15.9 D NT-Pro-B Natriuret Pep 2062.5 H Total Protein 6.6 Albumin 3.9 Urine Osmolality 281 L Ur Random Sodium 97.0 Influenza Type A (PCR) NEGATIVE Influenza Type B (PCR) NEGATIVE RSV RNA Qual (PCR) NEGATIVE SARS-CoV-2 RNA (RT-PCR) NEGATIVE 07/16/25 07:38 MCV 82.9 MCH 26.4 L MCHC 31.9 RDW 14.0 Plt Count 273 MPV 9.1 L Immature Gran % (Auto) Neut % (Auto) Lymph % (Auto) [place] % (Auto) Eos % (Auto) Baso % (Auto) Lymph # (Auto) [place] # (Auto) Eos # (Auto) Baso # (Auto) Abs Immat Gran (auto) Absolute Neuts (auto) Absolute Nucleated RBC 0.000 Nucleated RBC % (auto) 0.0 Anion Gap 12 Estim Creat Clear Calc 96.9 Estimated GFR > 60 Random Glucose 116 H Osmolality Calcium 9.2 Magnesium 1.9 Total Bilirubin Direct Bilirubin AST ALT Alkaline Phosphatase Troponin I High Sens NT-Pro-B Natriuret Pep Total Protein Albumin Urine Osmolality Ur Random Sodium Influenza Type A (PCR) Influenza Type B (PCR) RSV RNA Qual (PCR) SARS-CoV-2 RNA (RT-PCR) Assessment and Plan (1) Congestive heart failure: Status: Acute Plan Assessment: 84-year-old male who presented to hospital complaining of worsening shortness of breath and lower extremity edema that began approximately 1 month ago. In the ED chest x-ray showing pulmonary edema, with proBNP 2061.5, received IV Lasix. Congestive heart failure Heart failure exacerbation Acute hypoxic respiratory failure, likely secondary to heart failure exacerbation, improving -proBNP 2061. -chest x-ray showing pulmonary edema with bilateral opacities -patient not on diuretics at home, continue Lasix 60 mg IV b.i.d. -TTE ordered and pending -strict Is&Os -daily weights -salt restriction -telemetry -cardiology consulted Hyponatremia, likely in the setting of fluid overload, we will continue with IV Lasix -sodium today 126 -continue monitor labs Hypertension, chronic - we will hold amlodipine and losartan at this time, Continue IV Lasix. We will monitor and adjust blood pressure accordingly BPH, chronic Continue tamsulosin 0.4 mg p.o. q.d. Hyperlipidemia, chronic Continue atorvastatin 10 mg q.d.. Anemia, suspect of chronic disease -we will monitor for any signs of bleeding, we will transfuse for hemoglobin less than 7 Ambulatory dysfunction and generalized weakness, likely secondary to heart failure exacerbation -we will consult PT/OT -fall precautions FEN: NI, replete as needed, cardiac sodium restricted GI PPX: Protonix DVT PPX: SCDs, heparin Code status: Full code Disposition: Patient requires at least 2 overnight stays in the setting of heart failure exacerbation requiring IV diuretics and close repletion of electrolytes. Total time managing care of this patient today: 45 minutes. Quality Stroke Does the patient have a stroke diagnosis?: No VTE Prior VTE?: No VTE Risk Level:: Medical - moderate - high VTE Device Contraindication: N/A - Device Ordered VTE Drug Contraindication: N/A - Med Ordered
[2025-07-16 08:59] LABS: Thyroid Stimulating Hormone 1.09 uIU/mL (0.32-4.0)
--- NOTE | 2025-07-16 09:43 | MHC.CM.PN ---
Patient lives at home w/ . Independent w/ all care. Has a cane, but does not use. PCP Shree FLEMING Reports HCP is his Manisha. Copy requested. DP: Goal is home self care. to transport. CM will continue to follow.
--- NOTE | 2025-07-16 11:33 | PM.CNCAR ---
History of Present Illness History of Present Illness Date of Service: 07/16/25 Requesting physician: Xavi Connell Chief complaint: SOB Narrative: [age] year gentleman presenting with shortness of breath and fatigue. Clinically he was noted to be in congestive heart failure and admitted. He was previously seeing Dr. Lindo at [facility] and apparently had moderate LV dysfunction with EF 30 35% reportedly. He said that he had repeat echocardiography in December and heart function improved to 50%. He was on diuretics previously but they were discontinued. He continues to take losartan and is on amlodipine for blood pressure control. He said that he was noticing shortness of breath with activities and was also feeling tired and that is why he came to the emergency department. He had recent GI bleed in March due to peptic ulcer disease related to NSAID use. He is still is anemic with hemoglobin of 8.8. He was also noticed to be hyponatremic with sodium of 126. Elevated NT pro BNP 2062.5. [facility] Past Medical History Medical History Sick sinus syndrome Atrial fibrillation Cardiomyopathy H/O echocardiogram Diabetes Bilateral cataracts Osteoarthritis HTN (hypertension) Surgical History Surgical History S/P TURP (status post transurethral resection of prostate) H/O colonoscopy H/O shoulder surgery Social History Social History Household Members: Spouse Housing: House Do you presently have visiting nurse or other home services: No Alcohol intake: current Alcohol intake frequency: does not drink Patient Tobacco Use Status: Former Tobacco user Tobacco use type: Cigarette Years Smoked: 15 Smoked in Last 30 Days: No Use of substances other than those prescribed or required for medical reasons: No Currently Displaying Signs/Symptoms of Drug Intoxication Withdrawal: No Have you been hit, kicked, punched, or otherwise hurt by someone within the past year? If so, by whom?: No Do you feel safe in your current relationship?: No Current Relationship Is there a partner from a previous relationship who is making you feel unsafe now?: No Are you made to feel afraid or neglected: No Scientologist Healthcare Practices: Faith/Buddhism Advance Directives: No Advance Directives Information Provided: No Do you have a plan to hurt others: No Plan Recently lost weight without trying: No Eating poorly because of decreased appetite: No Nutrition Risks: No Nutritional Risk service: No Meds Allergies Allergy/AdvReac Type Severity Reaction Status Date / Time No Known Allergies Allergy Verified 07/15/25 15:03 Active Medications: Current Medications Acetaminophen (Acetaminophen 325 Mg Tablet) 650 mg PO Q6H PRN PRN Reason: Pain, Mild 1-3,fever,headache Atorvastatin Calcium (Atorvastatin Calcium 20 Mg Tablet) 20 mg PO DAILY [facility] Last Admin: 07/16/25 08:23 Dose: 20 mg Calcium Carbonate (Calcium Carbonate 750 Mg Tab.Chew) 750 mg PO Q4H PRN PRN Reason: Heartburn Cyanocobalamin (Cyanocobalamin (Vitamin B-12) 500 Mcg Tablet) 500 mcg PO DAILY [facility] Last Admin: 07/16/25 08:23 Dose: 500 mcg Furosemide (Furosemide 100 Mg/10 Ml Vial) 60 mg IVPUSH BID [facility]; Protocol Last Admin: 07/16/25 08:23 Dose: 60 mg Heparin Sodium (Porcine) (Heparin Sodium,Porcine 5,000 Unit/Ml Vial) 5,000 unit SUBCUT Q12H [facility] Last Admin: 07/16/25 06:00 Dose: 5,000 unit Losartan Potassium (Losartan Potassium 50 Mg Tablet) 100 mg PO DAILY [facility]; Protocol Last Admin: 07/16/25 08:23 Dose: 100 mg Magnesium Hydroxide (Milk Of Magnesia 30 Ml Oral.Susp) 30 ml PO DAILY PRN PRN Reason: Constipation Melatonin (Melatonin 3 Mg Tablet) 6 mg PO BEDTIME PRN PRN Reason: Insomnia Multivitamins/Vitamin C (Multivitamin Tablet) 1 tab PO BID [facility] Last Admin: 07/16/25 08:23 Dose: 1 tab Omeprazole (Omeprazole 20 Mg Capsule.) 20 mg PO BID@0630,1630 [facility] Last Admin: 07/16/25 06:00 Dose: 20 mg Ondansetron HCl (Ondansetron Hcl 4 Mg/2 Ml Vial) 4 mg IVPUSH Q8H PRN PRN Reason: Nausea and Vomiting Sodium Chloride (0.9 % Sodium Chloride Flush 3 Ml Syringe) 3 ml IVFLUSH QSHIFT [facility] Last Admin: 07/16/25 08:25 Dose: 3 ml Tamsulosin HCl (Tamsulosin Hcl 0.4 Mg Capsule) 0.4 mg PO DAILY [facility] Last Admin: 07/16/25 08:23 Dose: 0.4 mg Vitamin D (Cholecalciferol (Vitamin D3) 25 Mcg Tablet) 25 mcg PO DAILY [facility] Last Admin: 07/16/25 08:23 Dose: 25 mcg Home Medications ?Medication ?Instructions ?Recorded ?Confirmed ?Last Taken ?Type acetaminophen 500 mg tablet 1,000 mg PO DAILY@1999 PRN Pain 04/23/25 07/15/25 07/14/25 History alfuzosin 10 mg tablet,extended 10 mg PO DAILY 04/23/25 07/15/25 07/15/25 History release 24 hr amlodipine 10 mg tablet 10 mg PO DAILY 04/23/25 07/15/25 07/15/25 History atorvastatin 20 mg tablet 20 mg PO DAILY 04/23/25 07/15/25 07/15/25 History cholecalciferol (vitamin D3) 25 25 mcg PO DAILY 04/23/25 07/15/25 07/15/25 History mcg (1,000 unit) tablet (Vitamin D3) cyanocobalamin (vitamin B-12) 500 500 mcg PO DAILY 04/23/25 07/15/25 07/15/25 History mcg tablet losartan 100 mg tablet 100 mg PO DAILY 04/23/25 07/15/25 07/15/25 History vitamins A,C,O-epjq-ovvvid 2,148 1 tab PO BID 04/23/25 07/15/25 07/15/25 History mcg-113 mg-45 mg-17.4 mg tablet (PreserVision AREDS) pantoprazole 20 mg tablet,delayed 20 mg PO BID@0630,1630 07/15/25 07/15/25 07/15/25 History release Physical Exam Vital Signs: Vital Signs: Last Vital Signs Temp 98.3 F 07/16/25 08:00 Pulse 86 07/16/25 08:00 Resp 16 07/16/25 08:00 BP 147/58 H 07/16/25 08:00 Pulse Ox 93 07/16/25 08:00 O2 Del Method Room Air 07/16/25 08:00 O2 Flow Rate 2 07/15/25 22:54 BMI result Body Mass Index 30.4 GENERAL APPEARANCE: in no acute distress, pleasant. NECK: no carotid bruit, + jugular venous distention. SKIN: no suspicious lesions, warm and dry. HEART: no murmurs, regular rate and rhythm. LUNGS: Diminished at bases. ABDOMEN: soft, nontender. EXTREMITIES: Minimal edema. PERIPHERAL PULSES: equal. NEUROLOGIC: No gross deficits, AAO X 3 Objective Labs and Meds 07/16/25 07:38 07/16/25 07:38 Lab results: Laboratory Results - last 24 hr 07/15/25 07/15/25 07/15/25 15:20 19:49 19:59 WBC 10.5 RBC 3.50 L Hgb 9.3 L Hct 28.3 L MCV 80.9 MCH 26.6 L MCHC 32.9 RDW 14.1 Plt Count 280 MPV 9.4 Immature Gran % (Auto) 0.9 H Neut % (Auto) 77.9 H Lymph % (Auto) 6.6 L [place] % (Auto) 13.9 H Eos % (Auto) 0.3 Baso % (Auto) 0.4 Lymph # (Auto) 0.7 L [place] # (Auto) 1.5 H Eos # (Auto) 0.0 Baso # (Auto) 0.0 Abs Immat Gran (auto) 0.09 H Absolute Neuts (auto) 8.2 Absolute Nucleated RBC 0.000 Nucleated RBC % (auto) 0.0 Sodium 123 L Potassium 4.7 Chloride 92 L Carbon Dioxide 21 L Anion Gap 15 BUN 14 Creatinine 0.76 Estim Creat Clear Calc 87.9 Estimated GFR > 60 Random Glucose 144 H Osmolality 262 L Calcium 9.2 D Magnesium Total Bilirubin 0.5 Direct Bilirubin 0.2 AST 28 ALT 26 Alkaline Phosphatase 99 Troponin I High Sens 15.9 D NT-Pro-B Natriuret Pep 2062.5 H Total Protein 6.6 Albumin 3.9 TSH Urine Osmolality 281 L Ur Random Sodium 97.0 Influenza Type A (PCR) NEGATIVE Influenza Type B (PCR) NEGATIVE RSV RNA Qual (PCR) NEGATIVE SARS-CoV-2 RNA (RT-PCR) NEGATIVE 07/16/25 07:38 WBC 9.5 RBC 3.33 L Hgb 8.8 L Hct 27.6 L MCV 82.9 MCH 26.4 L MCHC 31.9 RDW 14.0 Plt Count 273 MPV 9.1 L Immature Gran % (Auto) Neut % (Auto) Lymph % (Auto) [place] % (Auto) Eos % (Auto) Baso % (Auto) Lymph # (Auto) [place] # (Auto) Eos # (Auto) Baso # (Auto) Abs Immat Gran (auto) Absolute Neuts (auto) Absolute Nucleated RBC 0.000 Nucleated RBC % (auto) 0.0 Sodium 126 L Potassium 4.4 Chloride 93 L Carbon Dioxide 25 Anion Gap 12 BUN 10 Creatinine 0.68 Estim Creat Clear Calc 96.9 Estimated GFR > 60 Random Glucose 116 H Osmolality Calcium 9.2 Magnesium 1.9 Total Bilirubin Direct Bilirubin AST ALT Alkaline Phosphatase Troponin I High Sens NT-Pro-B Natriuret Pep Total Protein Albumin TSH 1.09 Urine Osmolality Ur Random Sodium Influenza Type A (PCR) Influenza Type B (PCR) RSV RNA Qual (PCR) SARS-CoV-2 RNA (RT-PCR) Assessment and Plan (1) Congestive heart failure: Status: Acute Plan [age] year gentleman with anemia, background of congestive heart failure and recent GI bleed presenting for congestive heart failure. Clinically he is volume overloaded. Continue IV diuretics with close monitoring of I's and o's and electrolytes. He continues to be anemic. Please check iron studies and make sure his iron levels are restored. He is hyponatremic and that can be the cause for fatigue and weakness in this patient too. Further workup as per the primary team. Echocardiography tomorrow. We will follow along with you. Thank you for allowing me to participate in the care of your patient. Please feel free to contact me if you have any questions. Procedures Date of Service Date of Service: 07/16/25
[2025-07-16 14:36] LABS: Reticulocytes Absolute 0.055 X10*6/uL (0.026-0.095)
[2025-07-16 14:56] LABS: Iron 19 mcg/dL (45-160); Percent Iron Saturation 7 % (15-50); Total Iron Binding Capacity 277 mcg/dL (228-428); Unsaturated Iron Binding 258 ug/dL
[2025-07-16 15:10] LABS: Ferritin 61 ng/mL (20-250)
[2025-07-17] VITALS (7 sets, daily range): BP systolic 109–145; BP diastolic 58–92; PULSE 67–95; RESP 16–20; TEMP 36.3–37.2; O2SAT 94–98
--- NOTE | 2025-07-17 07:00 | CA_ITS ---
Transthoracic Echocardiogram Patient (Last, First, Middle): Damien Tapia, Gender: Male Date of : 1940 Age: 84 Procedure Date: 07/17/2025 Procedure Type: Transthoracic Echocardiogram Location: [facility] [place] Height: 180.34 cm Weight: 98.88 kg BSA: 2.19 m2 Heart Rate: bpm BP: 139 / 92 mmHg Guard Driver: SB Referring MD: Xavi Connell MD Epic Director: Sam Gallegos MD Symptoms: shortness of breath Study Quality: Adequate ECG Rhythm: Atrial Fibrillation Conclusions: - 1. Moderately dilated left ventricle with severely reduced LV ejection fraction 25-30% with restrictive filling pattern 2. Mildly to moderately reduced RV systolic function 3. Biatrial enlargement, right greater than left 4. Moderate aortic stenosis 5. Kopk-oq-homteohn mitral regurgitation 6. Normal measured RV systolic pressure with significantly elevated right atrial pressures 7. Small pericardial effusion, loculated near the right-sided chambers Findings Left Ventricle Moderately increased left ventricular cavity size. There is normal left ventricular wall thickness. The left ventricular systolic function is severely decreased. The visually estimated ejection fraction is between 25 30%. Spectral Doppler is indicative of a restrictive filling pattern. Right Ventricle Mildly increased right ventricular cavity size. There is mild to moderately decreased right ventricular systolic function. Atria The left atrium is mildly dilated. There is no evidence of interatrial shunt. The right atrium is moderately dilated. Aortic Valve The aortic valve was not well visualized. There is mild calcification of the aortic valve. There is moderate aortic valve stenosis. The peak aortic gradient is 23 mmHg.The mean gradient is 13 mmHg. The aortic valve area is 1.48 cm2. There is mild aortic valve regurgitation. Mitral Valve There is mild anterior and severe posterior mitral leaflet thickening. There is moderate mitral annular calcification. There is mild to moderate mitral valve regurgitation. There is no mitral valve stenosis. Pulmonic Valve The pulmonic valve is likely normal. There is mild pulmonic valve regurgitation. Tricuspid Valve Likely normal tricuspid valve structure and function. There is mild tricuspid valve regurgitation. Significantly elevated right atrial pressure. There is no evidence of pulmonary hypertension. Great Vessels The pulmonary artery was not well visualized. There is mild dilatation of the ascending aorta measuring 4.20 cm. Venous The inferior vena cava is moderately dilated and does not collapse with inspiration. Pericardium/Pleural There is a small loculated pericardial effusion overlying the right ventricle and right atrium. Prior Study Comparison No prior study available for comparison. Measurements 2D Linear Measurements IVSd: 1.43 0.6-0.9/0.6-1.0 cm LVIDd: 6.54 3.9-5.3/4.2-5.9 cm LVIDd Index: 2.99 2.4-3.2/2.2-3.1 cm/m2 LVIDs: 5.13 2.0-3.6 cm LVPWd: 0.88 0.7-1.1 cm LA Diam: 4.30 2.7-3.8/3.0-4.0 cm LAIDs Index: 1.96 1.5-2.3 cm/m2 LV Mass: 429.48 67-162/88-224 g LV Mass Index: 196.11 43-95/49-115 g/m2 LVOT Diam: 2.30 3.0+(-)1.3 cm 2D Systolic Function EF 4C: 24.30 >55% EF 2C: 33.10 >55% EF BiP: 28.00 >55% Mitral Valve MV Pk E: 1.20 MV Decel Time: 171.00 Aortic Valve AoV Pk [place]: 2.42 AoV Mn Jordan: 1.71 AoV VTI: 0.41 AoV Pk Grad: 23.00 Aov Mn Grad: 13.00 ANGIE Cont.VTI: 1.48 LVOT LVOT Pk [place]: 0.86 LVOT Mn [place]: 0.59 LVOT VTI: 0.15 LVOT Pk Grad: 3.00 LVOT Mn Grad: 2.00 LVOT Diam: 2.30 LVOT Area: 4.15 Diastolic Function MV Pk E: 1.20 Right Ventricle TAPSE (mm): 15.80 TVS' Jordan: 9.10 Tricuspid Valve TR Pk [place]: 2.43 TR Pk Grad: 24.00 RA Press: 15.00 RVSP: 39.00 Great Vessels Aorta Sinus of Valsalva: 4.00 2.0-3.5 cm Ao Asc: 4.20 2.1-3.4 cm Pulmonary Valve PV Pk [place]: 0.89 Peak PV Grad: 3.00 MO Pk [place]: 2.19 Updated in Other Vendor System with Status of Final Sam Gallegos MD electronically signed on 07/17/2025 12:17:24 PM with status of Final
[2025-07-17 07:15] LABS: Hematocrit 28.6 % (42.0-52.0); Hemoglobin 9.1 g/dl (14.0-18.0); Mean Corpuscular HGB Conc 31.8 g/dl (31.0-36.0); Mean Corpuscular Hemoglobin 26.3 pg (27.0-33.0); Mean Corpuscular Volume 82.7 fL (80.0-98.0); NRBC Abs Auto 0.000 X10*3/uL (0.0-0.012); NRBC Pct Auto 0.0 /100WBC (0.0-0.2); Platelet Count 275 X10*3/uL (160-400); Red Blood Count 3.46 X10*6/uL (4.60-5.80); White Blood Count 9.1 X10*3/uL (4.8-10.8)
[2025-07-17 07:39] LABS: Anion Gap 13 (12-20); Blood Urea Nitrogen 12 mg/dL (9-16); Calcium 8.9 mg/dL (8.4-10.2); Carbon Dioxide 25 mmol/L (22-29); Chloride 90 mmol/L (96-108); Creatinine Clr Calc Pharmacy 98.3; Estimated Glomerular Filt Rate > 60; Magnesium 1.8 mg/dL (1.6-2.6); Potassium 4.0 mmol/L (3.3-5.1); Sodium 124 mmol/L (135-145)
--- NOTE | 2025-07-17 08:24 | P.PNIM_ITS ---
Subjective Subjective Date of Service: 07/17/25 Interval History: Patient seen examined at bedside this morning, in no acute respiratory distress, mentioned that his breathing has improved, plans on having echo done today, continues on IV diuretics. Review of Systems Review of Systems: Yes all other systems are reviewed and are negative Physical Exam 2 Exam: Exam: General: AxOx3, comfortable Head: AT/NC ENT: Moist mucous membranes Neck: supple CVS; RRR Lungs: Bilateral rales, improved Abd: Soft non tender, anasarca, improved Ext: Bilateral lower extremity edema 1+ MSK: moving all 4 limbs Skin: Bilateral extremity edema with sacral edema Psych: Cooperative with exam Neurology: no focal deficit Vital Signs: Vital Signs: Last Vital Signs Temp 98.9 F 07/17/25 07:42 Pulse 95 07/17/25 07:42 Resp 18 07/17/25 07:42 BP 132/92 H 07/17/25 07:42 Pulse Ox 94 07/17/25 07:42 O2 Del Method Room Air, Large B ore Nasal Cannula 07/17/25 07:42 O2 Flow Rate 1 07/16/25 15:14 BMI result Body Mass Index 30.4 Objective Data Active Medications Acetaminophen (Acetaminophen 325 Mg Tablet) 650 mg PO Q6H PRN PRN Reason: Pain, Mild 1-3,fever,headache Atorvastatin Calcium (Atorvastatin Calcium 20 Mg Tablet) 20 mg PO DAILY [facility] Last Admin: 07/16/25 08:23 Dose: 20 mg Documented By: FREDRICK Calcium Carbonate (Calcium Carbonate 750 Mg Tab.Chew) 750 mg PO Q4H PRN PRN Reason: Heartburn Cyanocobalamin (Cyanocobalamin (Vitamin B-12) 500 Mcg Tablet) 500 mcg PO DAILY [facility] Last Admin: 07/16/25 08:23 Dose: 500 mcg Documented By: FREDRICK Furosemide (Furosemide 100 Mg/10 Ml Vial) 60 mg IVPUSH BID [facility]; Protocol Last Admin: 07/16/25 20:23 Dose: 60 mg Documented By: JORGE Heparin Sodium (Porcine) (Heparin Sodium,Porcine 5,000 Unit/Ml Vial) 5,000 unit SUBCUT Q12H [facility] Last Admin: 07/17/25 06:27 Dose: 5,000 unit Documented By: JORGE Losartan Potassium (Losartan Potassium 50 Mg Tablet) 100 mg PO DAILY [facility]; Protocol Last Admin: 07/16/25 08:23 Dose: 100 mg Documented By: FREDRICK Magnesium Hydroxide (Milk Of Magnesia 30 Ml Oral.Susp) 30 ml PO DAILY PRN PRN Reason: Constipation Melatonin (Melatonin 3 Mg Tablet) 6 mg PO BEDTIME PRN PRN Reason: Insomnia Multivitamins/Vitamin C (Multivitamin Tablet) 1 tab PO BID [facility] Last Admin: 07/16/25 20:24 Dose: 1 tab Documented By: JORGE Omeprazole (Omeprazole 20 Mg Capsule.) 20 mg PO BID@0630,1630 [facility] Last Admin: 07/17/25 06:27 Dose: 20 mg Documented By: JORGE Ondansetron HCl (Ondansetron Hcl 4 Mg/2 Ml Vial) 4 mg IVPUSH Q8H PRN PRN Reason: Nausea and Vomiting Sodium Chloride (0.9 % Sodium Chloride Flush 3 Ml Syringe) 3 ml IVFLUSH QSHIFT [facility] Last Admin: 07/16/25 20:28 Dose: Not Given Documented By: JORGE Non-Admin Reason: Previously Administered Tamsulosin HCl (Tamsulosin Hcl 0.4 Mg Capsule) 0.4 mg PO DAILY [facility] Last Admin: 07/16/25 08:23 Dose: 0.4 mg Documented By: FREDRICK Vitamin D (Cholecalciferol (Vitamin D3) 25 Mcg Tablet) 25 mcg PO DAILY [facility] Last Admin: 07/16/25 08:23 Dose: 25 mcg Documented By: FREDRICK Labs 07/17/25 06:53 07/17/25 06:53 Labs: Laboratory Results - last 24 hr 07/16/25 07/16/25 07/17/25 07:38 14:30 06:53 MCV 82.7 MCH 26.3 L MCHC 31.8 RDW 14.0 Plt Count 275 MPV 8.9 L Absolute Nucleated RBC 0.000 Nucleated RBC % (auto) 0.0 Absolute Retic 0.055 Percent Retic 1.6 Immature Retic Fraction 14.7 H Retic Hgb Equivalent 25.6 L Anion Gap 12 13 Estim Creat Clear Calc 96.9 98.3 Estimated GFR > 60 > 60 Random Glucose 116 H 124 H Calcium 9.2 8.9 Magnesium 1.9 1.8 Iron 19 L TIBC 277 % Saturation 7 L Unsat Iron Binding 258 Ferritin 61 TSH 1.09 Assessment and Plan (1) Congestive heart failure: Status: Acute Plan Assessment: 84-year-old male who presented to hospital complaining of worsening shortness of breath and lower extremity edema that began approximately 1 month ago. In the ED chest x-ray showing pulmonary edema, with proBNP 2062.5, received IV Lasix. Congestive heart failure Heart failure exacerbation Acute hypoxic respiratory failure, likely secondary to heart failure exacerbation, improving -proBNP 2062.5 -chest x-ray showing pulmonary edema with bilateral opacities -patient not on diuretics at home, continue Lasix 60 mg IV b.i.d. -TTE ordered and pending -strict Is&Os -daily weights -salt restriction -telemetry -cardiology consulted Hyponatremia, likely in the setting of fluid overload, we will continue with IV Lasix -sodium today 124 -continue monitor labs Hypertension, chronic - we will hold amlodipine and losartan at this time, Continue IV Lasix. We will monitor and adjust blood pressure accordingly BPH, chronic Continue tamsulosin 0.4 mg p.o. q.d. Hyperlipidemia, chronic Continue atorvastatin 10 mg q.d.. Anemia, suspect of chronic disease -we will monitor for any signs of bleeding, we will transfuse for hemoglobin less than 7 Ambulatory dysfunction and generalized weakness, likely secondary to heart failure exacerbation -we will consult PT/OT -fall precautions FEN: NI, replete as needed, cardiac sodium restricted GI PPX: Protonix DVT PPX: SCDs, heparin Code status: Full code Disposition: Patient requires at least 2 overnight stays in the setting of heart failure exacerbation requiring IV diuretics and close repletion of electrolytes. Total time managing care of this patient today: 45 minutes. Quality Stroke Does the patient have a stroke diagnosis?: No VTE Prior VTE?: No VTE Risk Level:: Medical - moderate - high VTE Device Contraindication: N/A - Device Ordered VTE Drug Contraindication: N/A - Med Ordered
[2025-07-17] MEDS: Furosemide 100 MG/10 ML VIAL 60 MG IVPUSH (08:39)
[2025-07-17] MEDS: 0.9 % Sodium Chloride Flush 3 ML SYRINGE IVFLUSH ×2 (08:43→23:30)
--- NOTE | 2025-07-17 11:05 | PM.PNCARD ---
Subjective Subjective Date of Service: 07/17/25 Principal diagnosis: Decompensated CHF, atrial fibrillation, new onset Interval history: Patient still short of breath. Last afternoon developed atrial fibrillation rapid ventricular response. He has no symptoms related to it. Heart rate is sometimes rapid especially with mobility. Also noted to have frequent PVCs. Echo is pending. No overt bleeding reported by him in the last couple of months since his admission in March. He has had no black stools. However hemoglobin is on the lower side. Review of Systems Constitutional: Reports weakness Cardiovascular: Reports no additional cardiovascular complaints Respiratory: Reports no additional respiratory complaints Gastrointestinal: Reports no additional gastrointestinal complaints Genitourinary: Reports no additional male genitourinary complaints Reports system reviewed and no additional complaints, except as documented and Reports weakness Psychiatric: Reports no additional psychiatric complaints Physical Exam Vital Signs: Last Vital Signs Temp 98.9 F 07/17/25 07:42 Pulse 95 07/17/25 07:42 Resp 18 07/17/25 07:42 BP 132/92 H 07/17/25 07:42 Pulse Ox 94 07/17/25 07:42 O2 Del Method Room Air, Large Bore Nasal Cannula 07/17/25 07:42 O2 Flow Rate 1 07/16/25 15:14 BMI result Body Mass Index 30.4 GENERAL APPEARANCE: in no acute distress, pleasant. NECK: no carotid bruit, + jugular venous distention. SKIN: no suspicious lesions, warm and dry. HEART: no murmurs, irregularly irregular rapid heart rate LUNGS: Diminished at bases. ABDOMEN: Distended, nontender. EXTREMITIES: Minimal edema. PERIPHERAL PULSES: equal. NEUROLOGIC: No gross deficits, AAO X 3 Objective Labs and Meds 07/17/25 06:53 07/17/25 06:53 Lab results: Laboratory Results - last 24 hr 07/16/25 07/17/25 14:30 06:53 WBC 9.1 RBC 3.46 L Hgb 9.1 L Hct 28.6 L MCV 82.7 MCH 26.3 L MCHC 31.8 RDW 14.0 Plt Count 275 MPV 8.9 L Absolute Nucleated RBC 0.000 Nucleated RBC % (auto) 0.0 Absolute Retic 0.055 Percent Retic 1.6 Immature Retic Fraction 14.7 H Retic Hgb Equivalent 25.6 L Sodium 124 L Potassium 4.0 Chloride 90 L Carbon Dioxide 25 Anion Gap 13 BUN 12 Creatinine 0.67 Estim Creat Clear Calc 98.3 Estimated GFR > 60 Random Glucose 124 H Calcium 8.9 Magnesium 1.8 Iron 19 L TIBC 277 % Saturation 7 L Unsat Iron Binding 258 Ferritin 61 Progress Note: A&P Assessment and plan (1) Decompensated heart failure: Status: Acute Assessment and Plan: Decompensated congestive heart failure still appears to be in mild respiratory distress with fluid overload. Continue IV diuresis. Strict intake and output chart needs to be pursued. Please add Jardiance 10 mg to his regimen. Better rate control. Unclear etiology as to his heart failure could be related to his cardiac arrhythmias and reduced LV ejection fraction. He has had prior history of cardiomyopathy. Echocardiogram is pending. Will continue losartan therapy for now. Add metoprolol therapy, see below. Will continue to monitor and follow up with him. Please trend BNP as well as renal function. (2) Atrial fibrillation with rapid ventricular response: Status: Acute Assessment and Plan: Atrial fibrillation rapid ventricular response without any new symptoms in this gentleman. He has no clue about having atrial fibrillation in the past. Currently does not feel it. Would start with rate control, can give digoxin load 0.25 mg IV push q.6 hours x3 doses. Also add metoprolol 12.5 mg q.6 to his regimen. He has not recurrent GI bleed but hemoglobin remains on the low side. Would challenge him with Eliquis after discussing with GI for clearance. Also consider treating his anemia with IV iron. Will follow with you. Time Spent With Patient Time: Total time managing care of this patient today ____ minutes. Progress Note: Quality Stroke Does the patient have a stroke diagnosis?: No Procedures Date of Service Date of Service: 07/17/25
[2025-07-17] MEDS: Metoprolol Tartrate 12.5 MG HALFTAB PO ×3 (12:55→20:37)
--- NOTE | 2025-07-17 13:12 | P.CNGI_ITS ---
History of Present Illness Data of Consult Service Date: 07/17/25 Requesting physician: Xavi Connell Primary Care Provider: BERNADETTE Peacock HPI Reason for consult: prior history of GI bleed, anemia, now with A fib requiring AC 84 YM with upper GI bleed from (03/2025), hypertension, heart failure admitted to [facility] on 07/15/25 with worsening shortness of breath and generalized weakness and wt gain Pt reported his symptoms started a month ago, with occasional orthopnea and dry cough, patient also mentions ascending edema. He denied nausea, vomiting, fevers, palpitations. Patient states that he was previously being treated for HFrEF however discontinue medications as EF had improved. In the ED, labs showing sodium of 123, proBNP of 2061, chest x-ray with mild pulmonary edema, faint bilateral opacities centrally and at lung bases. GI consulted since pt needs anti-coagulation for A Fib Patient denies heartburn, dysphagia, abd pain, change in appetite or recent black stools or rectal bleeding Patient reports having a colonoscopy at age 65 which was negative and he was informed that additional colonoscopies were not needed. Pt quitted smoking 30 yrs ago. PAST GI HISTORY BY REVIEW OF MEDICAL RECORDS: 03/2025 [address]GD WAS PERFORMED BY DR VERGARA: EGD Findings:? * Esophagus:? Normal mucosa noted in the entire esophagus. The Z line was at 42 cm with the diaphragmatic hiatus at 46 cm. * Stomach:? Erythema and erosions noted in antrum. A few gastric polyps were noted in the fundus and body of the stomach. Retroflexion was performed in the cardia. Cold forceps biopsies were taken from body and antrum to r/o H Pylori. * Duodenum:? Diffuse edema and erythema of duodenal bulb with x2 white based ulcers, 3-4 mm and 11 mm. A resolution 360 ultra clip was applied to the larger ulcer bed to mitigate rebleeding risk. ? EGD Impressions:? * Normal esophagus * Hiatal hernia * Gastric polyps * Gastritis (biopsy) * Duodenal ulcers (endoclip)?? Recommendations:?? * Follow biopsy results. * Pantoprazole 20 mg BID x 12 weeks and then once daily. * Avoid NSAIDs. Tylenol is ok. * If H pylori +, patient will be prescribed eradication therapy followed by test of cure. Review of Systems 2 Review of Systems: Yes all other systems are reviewed and are negative PMFSH Past Medical History Medical History Sick sinus syndrome Atrial fibrillation Cardiomyopathy H/O echocardiogram Diabetes Bilateral cataracts Osteoarthritis HTN (hypertension) Surgical History Surgical History S/P TURP (status post transurethral resection of prostate) H/O colonoscopy H/O shoulder surgery Social History Social History Household Members: Spouse Housing: House Do you presently have visiting nurse or other home services: No Alcohol intake: current Alcohol intake frequency: does not drink Patient Tobacco Use Status: Former Tobacco user Tobacco use type: Cigarette Years Smoked: 15 Smoked in Last 30 Days: No Use of substances other than those prescribed or required for medical reasons: No Currently Displaying Signs/Symptoms of Drug Intoxication Withdrawal: No Have you been hit, kicked, punched, or otherwise hurt by someone within the past year? If so, by whom?: No Do you feel safe in your current relationship?: No Current Relationship Is there a partner from a previous relationship who is making you feel unsafe now?: No Are you made to feel afraid or neglected: No Congregational Healthcare Practices: Denominational/Nondenominational Advance Directives: No Advance Directives Information Provided: No Do you have a plan to hurt others: No Plan Recently lost weight without trying: No Eating poorly because of decreased appetite: No Nutrition Risks: No Nutritional Risk service: No Meds Allergies Allergy/AdvReac Type Severity Reaction Status Date / Time No Known Allergies Allergy Verified 07/15/25 15:03 Active Medications: Current Medications Acetaminophen (Acetaminophen 325 Mg Tablet) 650 mg PO Q6H PRN PRN Reason: Pain, Mild 1-3,fever,headache Atorvastatin Calcium (Atorvastatin Calcium 20 Mg Tablet) 20 mg PO DAILY [facility] Last Admin: 07/17/25 08:39 Dose: 20 mg Calcium Carbonate (Calcium Carbonate 750 Mg Tab.Chew) 750 mg PO Q4H PRN PRN Reason: Heartburn Cyanocobalamin (Cyanocobalamin (Vitamin B-12) 500 Mcg Tablet) 500 mcg PO DAILY [facility] Last Admin: 07/17/25 08:39 Dose: 500 mcg Digoxin (Digoxin 0.5 Mg/2 Ml Ampul) 0.25 mg IVPUSH Q6H [facility]; Protocol Stop: 07/17/25 23:31 Last Admin: 07/17/25 12:52 Dose: 0.25 mg Empagliflozin (Empagliflozin 10 Mg Tablet) 10 mg PO DAILY [facility] Furosemide (Furosemide 100 Mg/10 Ml Vial) 40 mg IVPUSH BID [facility]; Protocol Heparin Sodium (Porcine) (Heparin Sodium,Porcine 5,000 Unit/Ml Vial) 5,000 unit SUBCUT Q12H [facility] Last Admin: 07/17/25 06:27 Dose: 5,000 unit Losartan Potassium (Losartan Potassium 50 Mg Tablet) 100 mg PO DAILY [facility]; Protocol Last Admin: 07/17/25 08:39 Dose: 100 mg Magnesium Hydroxide (Milk Of Magnesia 30 Ml Oral.Susp) 30 ml PO DAILY PRN PRN Reason: Constipation Melatonin (Melatonin 3 Mg Tablet) 6 mg PO BEDTIME PRN PRN Reason: Insomnia Metoprolol Tartrate (Metoprolol Tartrate 12.5 Mg Halftab) 12.5 mg PO QID [facility]; Protocol Last Admin: 07/17/25 12:55 Dose: 12.5 mg Multivitamins/Vitamin C (Multivitamin Tablet) 1 tab PO BID [facility] Last Admin: 07/17/25 08:39 Dose: 1 tab Omeprazole (Omeprazole 20 Mg Capsule.Dr) 20 mg PO BID@0630,1630 [facility] Last Admin: 07/17/25 06:27 Dose: 20 mg Ondansetron HCl (Ondansetron Hcl 4 Mg/2 Ml Vial) 4 mg IVPUSH Q8H PRN PRN Reason: Nausea and Vomiting Sodium Chloride (0.9 % Sodium Chloride Flush 3 Ml Syringe) 3 ml IVFLUSH QSHIFT [facility] Last Admin: 07/17/25 08:43 Dose: 3 ml Tamsulosin HCl (Tamsulosin Hcl 0.4 Mg Capsule) 0.4 mg PO DAILY [facility] Last Admin: 07/17/25 08:39 Dose: 0.4 mg Vitamin D (Cholecalciferol (Vitamin D3) 25 Mcg Tablet) 25 mcg PO DAILY [facility] Last Admin: 07/17/25 08:39 Dose: 25 mcg Home Medications ?Medication ?Instructions ?Recorded ?Confirmed ?Last Taken ?Type acetaminophen 500 mg tablet 1,000 mg PO DAILY@2000 PRN Pain 04/23/25 07/15/25 07/14/25 History alfuzosin 10 mg tablet,extended 10 mg PO DAILY 5 07/15/25 07/15/25 History release 24 hr amlodipine 10 mg tablet 10 mg PO DAILY 04/23/2506/2707/15/25 History atorvastatin 20 mg tablet 20 mg PO DAILY 04/23/2506/2707/15/25 History cholecalciferol (vitamin D3) 25 25 mcg PO DAILY 07/15/25 07/15/25 History mcg (1,000 unit) tablet (Vitamin D3) cyanocobalamin (vitamin B-12) 500 500 mcg PO DAILY 07/15/25 07/15/25 History mcg tablet losartan 100 mg tablet 100 mg PO DAILY 04/23/2507/15/25 History vitamins A,C,Q-lpvr-cykelt 2,148 1 tab PO BID 04/23/25 07/15/25 07/15/25 History mcg-113 mg-45 mg-17.4 mg tablet (PreserVision AREDS) pantoprazole 20 mg tablet,delayed 20 mg PO BID@0630,16 30 07/15/25 07/15/25 07/15/25 History release Physical Exam 2 Vital Signs: Vital Signs: Last Vital Signs Temp 98.7 F 07/17/25 12:00 Pulse 90 07/17/25 12:00 Resp 18 07/17/25 12:00 BP 136/90 H 07/17/25 12:00 Pulse Ox 97 07/17/25 12:00 O2 Del Method Room Air, Large B ore Nasal Cannula 07/17/25 07:42 O2 Flow Rate 1 07/16/25 15:14 BMI result Body Mass Index 30.4 Const: General: healthy appearing and no acute distress Nutritional Appearance: average body habitus Orientation/consciousness: patient oriented x3 Limitations: no limitations HEENT: Head: Yes normal to inspection Ears: hearing grossly normal bilaterally Eyes: Sclerae: sclerae normal Pupils: Equal, round and reactive pupils present Neck: Neck: Yes normal visual inspection Chest: Chest palpation & inspection: normal inspection of the chest Resp: Effort & Inspection: normal respiratory effort Auscultation: clear to auscultation bilaterally Cardio: Palpation: normal PMI Rate: regular rate Rhythm: abnormal rhythm irregularly irregular Heart sounds: S1 normal heart sound present, S2 normal heart sound present and no murmurs GI: Palpation (GI): Soft to palpation, nontender and No hepatosplenomegaly present Auscultation: normal bowel sounds Rectal Exam - Male: Yes deferred Skin: General skin exam: no rashes or lesions noted Neuro: General: patient oriented x3, gait normal and moves all extremities Cranial nerves: Yes Equal, round and reactive pupils present Psych: Appearance: grossly normal Mental Status: mental status grossly normal Results Labs 07/17/25 06:53 07/17/25 06:53 Labs: Short CBC 07/17/25 Range/Units 06:53 WBC 9.1 (4.8-10.8) X10*3/uL Hgb 9.1 L (14.0-18.0) g/dl Hct 28.6 L (42.0-52.0) % Plt Count 275 (160-400) X10*3/uL BMP 07/17/25 06:53 Sodium 124 L Potassium 4.0 Chloride 90 L Carbon Dioxide 25 BUN 12 Creatinine 0.67 Calcium 8.9 Assessment and Plan (1) Duodenal ulcer: Status: Acute Plan 84 YM with upper GI bleed from DU (03/2025), hypertension, heart failure admitted to [facility] on 07/15/25 with worsening shortness of breath and generalized weakness and wt gain GI consulted since pt needs anti-coagulation for A Fib Patient denies recent black stools or rectal bleeding. UGI bleeding in 03/2025 - 2 small DU detected on EGD - Pt is at low risk for bleeding since ulcers have likely healed Labs show normocytic, hypochromic anemia with normal RDW. Iron studies are suggestive of anemia of chronic disease +/- iron-deficiency anemia RECOMMENDATIONS: 1. 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 2. Check Vitamin B12 with am labs - order placed 3. Ok to start anticoagulation and monitor CBC. 4. Pt advised to come to the ER if he notes black stools, rectal bleeding or recurrent weakness. Procedures Date of Service Date of Service: 07/17/25
--- NOTE | 2025-07-17 13:41 | MHC.CM.PN ---
Pt. not yet medically cleared, GI and cardiology to see. DCP:home, self care.
[2025-07-17] MEDS: Furosemide 100 MG/10 ML VIAL 40 MG IVPUSH (20:37)
[2025-07-18 03:06] VITALS: BP 142/65; PULSE 77; RESP 14; TEMP 36.4; O2SAT 96
[2025-07-18 06:00] VITALS: BMI 29.1
[2025-07-18 06:59] LABS: Hematocrit 29.7 % (42.0-52.0); Hemoglobin 9.5 g/dl (14.0-18.0); Mean Corpuscular HGB Conc 32.0 g/dl (31.0-36.0); Mean Corpuscular Hemoglobin 26.0 pg (27.0-33.0); Mean Corpuscular Volume 81.4 fL (80.0-98.0); NRBC Abs Auto 0.000 X10*3/uL (0.0-0.012); NRBC Pct Auto 0.0 /100WBC (0.0-0.2); Platelet Count 299 X10*3/uL (160-400); Red Blood Count 3.65 X10*6/uL (4.60-5.80); White Blood Count 8.5 X10*3/uL (4.8-10.8)
[2025-07-18 07:01] LABS: Anion Gap 13 (12-20); Blood Urea Nitrogen 12 mg/dL (9-16); Calcium 9.0 mg/dL (8.4-10.2); Carbon Dioxide 28 mmol/L (22-29); Chloride 89 mmol/L (96-108); Creatinine Clr Calc Pharmacy 99.3; Estimated Glomerular Filt Rate > 60; Magnesium 1.7 mg/dL (1.6-2.6); Potassium 3.8 mmol/L (3.3-5.1); Sodium 126 mmol/L (135-145)
[2025-07-18 07:31] VITALS: BP 139/72; PULSE 80; RESP 18; TEMP 36.4; O2SAT 98
[2025-07-18 07:43] LABS: Folate 11.2 ng/mL (> or = 4.0); Vitamin B12 > 2000 pg/mL (200-900)
[2025-07-18 08:24] VITALS: BP 139/72
[2025-07-18] MEDS: Furosemide 100 MG/10 ML VIAL 40 MG IVPUSH (08:24)
[2025-07-18] MEDS: Metoprolol Tartrate 12.5 MG HALFTAB PO ×2 (08:25→15:37)
[2025-07-18] MEDS: 0.9 % Sodium Chloride Flush 3 ML SYRINGE IVFLUSH (08:25)
--- NOTE | 2025-07-18 09:53 | MHC.CM.PN ---
[facility] delivered, pt. confirmed his DCP is home, no services.
[2025-07-18 11:20] VITALS: BP 126/68; PULSE 84; RESP 18; TEMP 36.9; O2SAT 96
--- NOTE | 2025-07-18 12:25 | PM.PNCARD ---
Subjective Subjective Date of Service: 07/18/25 Principal diagnosis: Decompensated CHF, atrial fibrillation, new onset Interval history: Patient is feeling a lot better. Overnight diuresed about 2500 cc. Says shortness of breath has improved. Echocardiogram yesterday shows severe LV systolic dysfunction. His rate is very well controlled on metoprolol and after digoxin loading. Review of Systems Review of Systems Yes all other systems are reviewed and are negative Physical Exam Vital Signs: Last Vital Signs Temp 98.4 F 07/18/25 11:20 Pulse 84 07/18/25 11:20 Resp 18 07/18/25 11:20 BP 126/68 07/18/25 11:20 Pulse Ox 96 07/18/25 11:20 O2 Del Method Room Air 07/18/25 11:20 O2 Flow Rate 1 07/16/25 15:14 BMI result Body Mass Index 29.1 GENERAL APPEARANCE: in no acute distress, pleasant. NECK: no carotid bruit, + jugular venous distention. SKIN: no suspicious lesions, warm and dry. HEART: no murmurs, irregularly irregular rapid heart rate LUNGS: Diminished at bases. ABDOMEN: Distended, nontender. EXTREMITIES: Minimal edema. PERIPHERAL PULSES: equal. NEUROLOGIC: No gross deficits, AAO X 3 Objective Labs and Meds 07/18/25 06:40 07/18/25 06:40 Lab results: Laboratory Results - last 24 hr 07/18/25 06:40 WBC 8.5 RBC 3.65 L Hgb 9.5 L Hct 29.7 L MCV 81.4 MCH 26.0 L MCHC 32.0 RDW 13.9 Plt Count 299 MPV 8.9 L Absolute Nucleated RBC 0.000 Nucleated RBC % (auto) 0.0 Sodium 126 L Potassium 3.8 Chloride 89 L Carbon Dioxide 28 Anion Gap 13 BUN 12 Creatinine 0.65 Estim Creat Clear Calc 99.3 Estimated GFR > 60 Random Glucose 113 Calcium 9.0 Magnesium 1.7 Vitamin B12 > 2000 H Folate 11.2 Progress Note: A&P Assessment and plan (1) Decompensated heart failure: Status: Acute Assessment and Plan: Decompensated heart failure related to significantly LV systolic dysfunction could be tachycardia mediated related to frequent PVCs as well as atrial fibrillation which is new onset. Continue rate control. Will need ischemic workup as an outpatient. Continue current neurohormonal modulation with metoprolol which can be changed to 25 mg b.i.d. as well as losartan for now. Switch to p.o. Lasix 40 mg daily and Jardiance 10 mg daily. Also would add digoxin 0.125 mg daily to his regimen. Heart failure management was discussed and further workup was discussed with him. He would like to follow up outpatient through [place] if possible (2) Atrial fibrillation with rapid ventricular response: Status: Acute Assessment and Plan: Atrial fibrillation, new onset for him. Metoprolol and digoxin as above for rate control. Will follow up with outpatient Holter monitor to assess adequate rate response as well as digoxin assay. Discussed with GI yesterday and they were okay for him to get Eliquis therapy. Will need follow up of H&H. Patient planned to be discharged today. Will sign of the case and will attempt to follow up with him as outpatient. Time Spent With Patient Time: Total time managing care of this patient today ____ minutes. Progress Note: Quality Stroke Does the patient have a stroke diagnosis?: No Procedures Date of Service Date of Service: 07/18/25
--- NOTE | 2025-07-18 13:51 | P.DS_ITS ---
DS: Providers Provider Date of admission: 07/15/25 18:19 Date of discharge: 07/18/25 Primary care physician: BERNADETTE Peacock Consults: 07/15/25 18:29 Consult to Cardiology Routine Consulting Provider: [facility] [place] [facility] Reason for consultation: Heart failure Has provider been notified: No 07/17/25 11:32 Consult to Gastroenterology Routine Consulting Provider: [facility] [place] [facility] Reason for consultation: prior history of GI bleed, anemia, now with A fib requiring AC Has provider been notified: No DS: Diagnosis Discharge Diagnosis (1) Decompensated heart failure: Status: Acute (2) Atrial fibrillation with rapid ventricular response: Status: Acute DS: Summary Hospital Course Hospital Course: 84-year-old male with past medical history significant for upper GI bleed, hypertension, heart failure who presented to hospital complaining of worsening shortness of breath and generalized weakness. That began approximately 1 month ago, with occasional orthopnea and dry cough, patient also mentions ascending edema. Denies any nausea, vomiting, fevers, palpitations. Patient states that he was previously being treated for HFrEF however discontinue medications as EF had improved. In the ED, labs showing sodium of 123, proBNP of 2062, chest x- ray with mild pulmonary edema, faint bilateral opacities centrally and at lung bases. Patient given IV Lasix in the ED. Hospital Course Patient admitted to telemetry initially in sinus rhythm. On the afternoon of admission developed atrial fibrillation with rapid ventricular response. Cardiology was consulted and recommended metoprolol and digoxin. Patient was given several doses of IV Lasix with good response. At the time of discharge patient's rate has been well controlled on from a cardiac standpoint cardiology has cleared him for discharge. At this point he will be discharged with Jardiance digoxin and metoprolol added to his regimen. Cardiology will call him for a follow up appointment Time Attestation Discharge Coordination Time (in mins): 35 Quality: Safe Use of Opioids Does Pt have an Active Cancer Diagnosis on the Problem List?: No Quality: Stroke Does the patient have a stroke diagnosis?: No Physical Exam Vital Signs: Vital Signs: Last Vital Signs Temp 98.4 F 07/18/25 11:20 Pulse 84 07/18/25 11:20 Resp 18 07/18/25 11:20 BP 126/68 07/18/25 11:20 Pulse Ox 96 07/18/25 11:20 O2 Del Method Room Air 07/18/25 11:20 O2 Flow Rate 1 07/16/25 15:14 BMI result Body Mass Index 29.1 Const: Other: Awake alert no acute distress Resp: Other: Clear to auscultation bilaterally no rales rhonchi or wheezes Cardio: Other: No S4; positive S1-S2; no S3 murmurs rubs or gallops GI: Other: Soft nontender nondistended normoactive bowel sounds Extrem: Other: No edema bilaterally DS: Data Data Completed and Pending Completed studies during hospitalization [Text1]: Procedures Control Bleeding in Gastrointestinal Tract, Via Natural or Artificial Opening Endoscopic (04/23/25) Excision of Stomach, Pylorus, Via Natural or Artificial Opening Endoscopic, Diagnostic (04/23/25) Transfusion of Nonautologous Red Blood Cells into Peripheral Vein, Percutaneous Approach (04/23/25) Labs on day of discharge: Laboratory Results - last 24 hr 07/18/25 06:40 WBC 8.5 RBC 3.65 L Hgb 9.5 L Hct 29.7 L MCV 81.4 MCH 26.0 L MCHC 32.0 RDW 13.9 Plt Count 299 MPV 8.9 L Absolute Nucleated RBC 0.000 Nucleated RBC % (auto) 0.0 Sodium 126 L Potassium 3.8 Chloride 89 L Carbon Dioxide 28 Anion Gap 13 BUN 12 Creatinine 0.65 Estim Creat Clear Calc 99.3 Estimated GFR > 60 Random Glucose 113 Calcium 9.0 Magnesium 1.7 Vitamin B12 > 2000 H Folate 11.2 Discharge Plan Discharge Anticipated Discharge Date/Time: 07/18/25 13:43 Patient Disposition: Home, Self-Care Discharge Diagnosis: New onset atrial fibrillation Referrals: Shree Urbina PA [Primary Care Provider, Internal Medicine] - 1 Week Discharge Medications: New Jardiance 10 mg Tablet 10 mg PO DAILY Qty: 30 0RF metoprolol tartrate 25 mg tablet 25 mg PO Q12H Qty: 60 0RF digoxin 125 mcg (0.125 mg) tablet 125 mcg PO DAILY Qty: 30 0RF furosemide [Lasix] 40 mg tablet 40 mg PO DAILY Qty: 30 0RF Continued atorvastatin 20 mg tablet 20 mg PO DAILY amlodipine 10 mg tablet 10 mg PO DAILY losartan 100 mg tablet 100 mg PO DAILY alfuzosin 10 mg tablet extended release 24 hr 10 mg PO DAILY acetaminophen 500 mg Tablet 1,000 mg PO DAILY@2000 PRN (Reason: Pain) cholecalciferol (vitamin D3) [Vitamin D3] 25 mcg (1,000 unit) Tablet 25 mcg PO DAILY PreserVision AREDS 2,148 mcg-113 mg-45 mg-17.4mg Tablet 1 tab PO BID Rx Instructions: administer with AM and PM meals cyanocobalamin (vitamin B-12) 500 mcg Tablet 500 mcg PO DAILY pantoprazole 20 mg tablet,delayed release (DR/EC) 20 mg PO BID@0630,1630 Rx Instructions: 20 mg bid x 12 weeks then 20 mg once daily Discharge Orders: Discharge Order (Routine); Ordered 07/18/25 Ordered By: Niles Archibald Diet: Advance to usual diet Activity on Discharge: As tolerated Stand Alone Forms: Patient Portal Discharge page Print Language: Citizen Of [place] Care Plan Goals: Jardiance 10 mg daily has been added to your regimen along with digoxin 0.125 mg daily. Metoprolol has also been added 25 mg twice daily Health Concerns: Resume all other medicines as taken prior to admission Plan of Treatment: Dr. Gallegos's office will call you with an appointment Assessment: See discharge summary
--- NOTE | 2025-07-18 14:14 | MHC.CM.PN ---
Pt. has been medically cleared to CT, will bring him home, plan is self care.
[2025-07-18 15:31] VITALS: BP 123/52; PULSE 72; RESP 18; TEMP 36.3; O2SAT 96
== END 2025-07-18 16:02 | disposition home or self-care (01) | DRG 291 ==
LOC: HO.ED 17:32 → HO.EDOVER 18:43 → HO.IMC 19:14
PROVIDERS: Internal Medicine Gastroenterology; Nurse Practitioner Family; Admitting Provider Student in an Organized Health Care Education/Training Program; Emergency Provider Emergency Medicine Emergency Medical Services; PCP Physician Assistant Medical; Visit Provider Hospitalist
DX: I11.0 Hypertensive heart disease with heart failure (principal); I50.23 Acute on chronic systolic (congestive) heart failure; J96.01 Acute respiratory failure with hypoxia; E87.1 Hypo-osmolality and hyponatremia; I48.91 Unspecified atrial fibrillation; N40.0 Benign prostatic hyperplasia without lower urinary tract symptoms; D50.9 Iron deficiency anemia, unspecified; E78.5 Hyperlipidemia, unspecified; D63.8 Anemia in other chronic diseases classified elsewhere; Z20.822 Contact with and (suspected) exposure to COVID-19; Z87.11 Personal history of peptic ulcer disease; Z87.891 Personal history of nicotine dependence; Z79.899 Other long term (current) drug therapy
CPT/HCPCS: 36415; 71046; 80048; 80076; 82607; 82728; 82746; 83540; 83735; 83880; 83930; 83935; 84300; 84443; 84484; 85025; 85027; 85045; 87637; 93005; 93306; 99285; J1160; J1644; J1756; J1938; Q9957

== ENCOUNTER → 2025-07-15 15:03 | Outpatient (BNV) | payer OTHER, SELFPAY | PROVIDERS: Emergency Provider Emergency Medicine Emergency Medical Services; PCP Physician Assistant Medical; Visit Provider Radiology Diagnostic Radiology | DX: J81.0 Acute pulmonary edema (principal) | CPT/HCPCS: 71046 ==

== ENCOUNTER → 2025-07-15 16:05 | Outpatient (BNV) | payer OTHER, SELFPAY | PROVIDERS: Emergency Provider Emergency Medicine Emergency Medical Services; PCP Physician Assistant Medical; Visit Provider Student in an Organized Health Care Education/Training Program | DX: I50.9 Heart failure, unspecified (principal) | CPT/HCPCS: 99233 ==

== ENCOUNTER 2025-07-15 18:19 | Outpatient (BNV) | payer OTHER, SELFPAY | END 2025-07-17 07:00 | PROVIDERS: Admitting Provider Student in an Organized Health Care Education/Training Program; Emergency Provider Emergency Medicine Emergency Medical Services; PCP Physician Assistant Medical; Visit Provider Internal Medicine Cardiovascular Disease | DX: I51.7 Cardiomegaly (principal); I35.0 Nonrheumatic aortic (valve) stenosis; I34.0 Nonrheumatic mitral (valve) insufficiency; I31.39 Other pericardial effusion (noninflammatory) | CPT/HCPCS: 93306 ==

== ENCOUNTER 2025-07-15 18:19 | Outpatient (BNV) | payer OTHER, SELFPAY | END 2025-07-16 15:24 | PROVIDERS: Admitting Provider Student in an Organized Health Care Education/Training Program; Emergency Provider Emergency Medicine Emergency Medical Services; PCP Physician Assistant Medical; Visit Provider Internal Medicine Cardiovascular Disease | DX: I48.91 Unspecified atrial fibrillation (principal); I45.4 Nonspecific intraventricular block | CPT/HCPCS: 93010 ==

== ENCOUNTER → 2025-07-15 18:19 | Outpatient (BNV) | payer OTHER, SELFPAY | PROVIDERS: Admitting Provider Student in an Organized Health Care Education/Training Program; Emergency Provider Emergency Medicine Emergency Medical Services; PCP Physician Assistant Medical; Visit Provider Internal Medicine Cardiovascular Disease | DX: I50.9 Heart failure, unspecified (principal); I48.91 Unspecified atrial fibrillation | CPT/HCPCS: 93010; 99223; 99233 ==

== ENCOUNTER → 2025-07-15 18:19 | Outpatient (BNV) | payer OTHER, SELFPAY | PROVIDERS: Admitting Provider Student in an Organized Health Care Education/Training Program; Emergency Provider Emergency Medicine Emergency Medical Services; PCP Physician Assistant Medical; Visit Provider Internal Medicine Gastroenterology | DX: K26.9 Duodenal ulcer, unspecified as acute or chronic, without hemorrhage or perforation (principal) | CPT/HCPCS: 99222 ==